=== PATIENT | male | born 1975 | race African-American/Black ===

== ENCOUNTER 2018-04-26 08:13 | Emergency (ER) | payer SELFPAY ==
--- NOTE | 2018-04-26 08:31 | EDPHYS ---
Physician Documentation [facility] Name: Almas Chavez Age: 42 yrs Sex: Male : 1975 Arrival Date: 04/26/2018 Time: 08:15 Bed 8 Private MD: None, None ED Physician Luis Deleon HPI: 04/26 08:26 This 42 yrs old Black Male presents to ER via Unassigned with complaints of High Blood ps1 Pressure. 08:26 patient presenting with asymptomatic hypertension. Has a DOT physical and has not had ps1 his lisinopril refilled since moving from [place]. Has tried to get BP down over the last 3 days by not eating salt. Has not taken his medications in months. Has not been able or tried to get PCP in area. No CP, tightness, pressure, headache, SUSANNAH. . Historical: - Allergies: 08:31 No Known Allergies; ss - Home Meds: 08:31 lisinopril 10 mg Oral tab 1 tab once daily [Active]; Metformin Oral [Active]; Glyburide ss Oral [Active]; - PMHx: 08:31 Hypertension; Diabetes - NIDDM; ss - PSHx: 08:31 None; ss - Immunization history:: Adult Immunizations unknown. - Social history:: Smoking status: Patient uses tobacco products, smokes one pack cigarettes per day. - Ebola Screening: : Patient denies exposure to infectious person Patient denies travel to an Ebola-affected area in the 21 days before illness onset. ROS: 08:26 Constitutional: Negative for fever, chills, and weight loss, Eyes: Negative for injury, ps1 pain, redness, and discharge, Cardiovascular: Negative for chest pain, palpitations, and edema, Respiratory: Negative for shortness of breath, cough, wheezing, and pleuritic chest pain, Abdomen/GI: Negative for abdominal pain, nausea, vomiting, diarrhea, and constipation, MS/Extremity: Negative for injury and deformity, Skin: Negative for injury, rash, and discoloration, Neuro: Negative for headache, weakness, numbness, tingling, and seizure. Exam: 08:26 Constitutional: This is a well developed, well nourished patient who is awake, alert, ps1 and in no acute distress. Head/Face: Normocephalic, atraumatic. Eyes: Pupils equal round and reactive to light, extra-ocular motions intact. Lids and lashes normal. Conjunctiva and sclera are non-icteric and not injected. Chest/axilla: Normal chest wall appearance and motion. Nontender with no deformity. No lesions are appreciated. Cardiovascular: Regular rate and rhythm. No gallops, murmurs, or rubs. Normal PMI, no JVD. No pulse deficits. Respiratory: Lungs have equal breath sounds bilaterally, clear to auscultation and percussion. No rales, rhonchi or wheezes noted. No increased work of breathing, no retractions or nasal flaring. Abdomen/GI: Soft, non-tender, with normal bowel sounds. No distension or tympany. No guarding or rebound. No evidence of tenderness throughout. MS/ Extremity: Pulses equal, no cyanosis. Neurovascular intact. Full, normal range of motion. Neuro: Awake and alert, GCS 15, oriented to person, place, time, and situation. Cranial nerves II-XII grossly intact. Sensory grossly intact. Psych: Awake, alert, with orientation to person, place and time. Behavior, mood, and affect are within normal limits. Vital Signs: 08:31 BP 181 / 103; Pulse 75; Resp 16; Temp 97.9(TE); Pulse Ox 99% on R/A; Height 5 ft. 9 in. ss (175.26 cm); Pain 0/10; MDM: 08:26 Data reviewed: vital signs, nurses notes, and as a result, I will discharge patient, ps1 give a month of lisinopril and local resources for care with medicine group and [facility] clinic. . Counseling: I had a detailed discussion with the patient and/or guardian regarding: the historical points, exam findings, and any diagnostic results supporting the discharge/admit diagnosis, the presence of at least one elevated blood pressure reading (>120/80) during this emergency department visit, the need for outpatient follow up, for definitive care. 08:30 Patient medically screened. ps1 Administered Medications: No medications were administered Disposition: 04/26/18 08:30 Discharged to Home. Impression: Asymptomatic Hypertension. - Condition is Stable. - Discharge Instructions: Hypertension. - Prescriptions for Lisinopril 10 mg Oral Tablet - take 1 tablet by ORAL route once daily; 30 tablet. - Medication Reconciliation Form, Thank You Letter, Antibiotic Education, Prescription Opioid Use form. - Follow up: Private Physician; When: 1 week; Reason: Recheck today's complaints, Continuance of care, Re-evaluation by your physician. - Problem is chronic. - Symptoms are unchanged. Signatures: Erika Castle RN RN ss Luis Deleon MD MD ps1 Corrections: (The following items were deleted from the chart) 08:35 08:30 04/26/2018 08:30 Discharged to Home. Impression: Asymptomatic Hypertension. ss Condition is Stable. Forms are Medication Reconciliation Form, Thank You Letter, Antibiotic Education, Prescription Opioid Use. Follow up: Private Physician; When: 1 week; Reason: Recheck today's complaints, Continuance of care, Re-evaluation by your physician. Problem is chronic. Symptoms are unchanged. ps1
--- NOTE | 2018-04-26 08:31 | ER ---
Nurse's Notes [facility] Name: Almas Chavez Age: 42 yrs Sex: Male : 1975 Arrival Date: 04/26/2018 Time: 08:15 Bed 8 Private MD: None, None Diagnosis: Asymptomatic Hypertension Presentation: 04/26 08:27 Presenting complaint: Patient states: Pt reports he is from out of state and does not ss have a PCP in the area so he is unable to refill his Lisinopril 10 mg. He has been trying to get his BP to come down without his medication in order to start a new job, but has been unsuccessful. Denies SOB, CP and/or dizziness. Transition of care: patient was not received from another setting of care. Onset of symptoms is unknown. Risk Assessment: Do you want to hurt yourself or someone else? Patient reports no desire to harm self or others. Initial Sepsis Screen: Does the patient meet any 2 criteria? No. Patient's initial sepsis screen is negative. Does the patient have a suspected source of infection? No. Patient's initial sepsis screen is negative. Care prior to arrival: None. 08:27 Method Of Arrival: Ambulatory ss 08:27 Acuity: JOANNE 5 ss Historical: - Allergies: 08:31 No Known Allergies; ss - Home Meds: 08:31 lisinopril 10 mg Oral tab 1 tab once daily [Active]; Metformin Oral [Active]; Glyburide ss Oral [Active]; - PMHx: 08:31 Hypertension; Diabetes - NIDDM; ss - PSHx: 08:31 None; ss - Immunization history:: Adult Immunizations unknown. - Social history:: Smoking status: Patient uses tobacco products, smokes one pack cigarettes per day. - Ebola Screening: : Patient denies exposure to infectious person Patient denies travel to an Ebola-affected area in the 21 days before illness onset. Screenin:32 Abuse screen: Denies threats or abuse. Denies injuries from another. Nutritional ss screening: No deficits noted. Tuberculosis screening: Never had TB. Fall Risk None identified. Assessment: 08:32 General: Appears in no apparent distress. comfortable, Behavior is calm, cooperative, ss Denies fever, feeling ill, fatigue, chills. Pain: Denies pain. Neuro: No deficits noted. Level of Consciousness is awake, alert, obeys commands, Oriented to person, place, time, situation. Cardiovascular: Capillary refill < 3 seconds is brisk in bilateral fingers. Respiratory: Airway is patent Respiratory effort is even, unlabored, Respiratory pattern is regular, symmetrical. GI: No signs and/or symptoms were reported involving the gastrointestinal system. Derm: Skin is intact, is healthy with good turgor, Skin is pink, warm \T\ dry. normal. Musculoskeletal: Circulation, motion, and sensation intact. Range of motion: intact in all extremities, Swelling absent. Vital Signs: 08:31 BP 181 / 103; Pulse 75; Resp 16; Temp 97.9(TE); Pulse Ox 99% on R/A; Height 5 ft. 9 in. ss (175.26 cm); Pain 0/10; ED Course: 08:15 Patient arrived in ED. sb2 08:16 None, None is Private Physician. sb2 08:22 Luis Deleon MD is Attending Physician. ps1 08:28 Triage completed. ss 08:31 Arm band placed on left wrist. ss 08:32 Patient has correct armband on for positive identification. Bed in low position. Call ss light in reach. 08:34 No provider procedures requiring assistance completed. Patient did not have IV access ss during this emergency room visit. Administered Medications: No medications were administered Outcome: 08:30 Discharge ordered by . ps1 08:34 Discharged to home ambulatory. ss 08:34 Condition: good 08:34 Discharge instructions given to patient, Instructed on discharge instructions, follow up and referral plans. medication usage, Demonstrated understanding of instructions, follow-up care, medications, Prescriptions given X 1. 08:35 Patient left the ED. ss Signatures: Erika Castle, RN RN Luis Deleon MD MD ps1 Lena Crooks sb2
== END 2018-04-26 08:35 | disposition home or self-care (01) ==
LOC: ER 08:13
DX: I10 Essential (primary) hypertension (principal); E11.9 Type 2 diabetes mellitus without complications; F17.210 Nicotine dependence, cigarettes, uncomplicated; Z79.84 Long term (current) use of oral hypoglycemic drugs; Z79.899 Other long term (current) drug therapy
CPT/HCPCS: 99282

== ENCOUNTER 2019-06-01 18:33 | Emergency (ER) | payer SELFPAY ==
[2019-06-01] MEDS ORDERED: ONDANSETRON 4 MG/2 ML VIAL ONE (19:23)
[2019-06-01] MEDS ORDERED: MORPHINE 4 MG/ML SYR ONE (19:23)
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
[2019-06-01] MEDS ORDERED: FENTANYL CITR 100 MCG/2 ML ONE (20:05)
[2019-06-01 20:08] LABS: Absolute Lymphocytes (CBC) 2.5 K/uL (0.7-4.9); Basophils % 0.6 % (0-1.3); Hematocrit 42.5 % (39.6-49.0); Lymphocytes % 37.7 % (15.3-44.8); MPV 8.4 fL (7.6-11.3)
[2019-06-01 20:30] LABS: ALT/SGPT 24 U/L (12-78); AST/SGOT 13 U/L (15-37); Albumin 3.6 g/dL (3.4-5.0); Alkaline Phosphatase 84 U/L (45-117); BUN Blood Urea Nitrogen 11 mg/dL (7-18); Bicarbonate 28 mmol/L (21-32); Bilirubin Total 0.4 mg/dL (0.2-1.0); Glucose Level 204 mg/dL (74-106); Potassium 3.5 mmol/L (3.5-5.1); Protein, Total 6.8 g/dL (6.4-8.2); Sodium Level 141 mmol/L (136-145)
[2019-06-01] MEDS ORDERED: CYCLOBENZAPRINE 10 MG TAB ONE (20:59)
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
[2019-06-02 00:57] VITALS: O2SAT 100
[2019-06-02 01:00] VITALS: BP 182/101
== END 2019-06-01 21:34 | disposition home or self-care (01) ==
LOC: ER 18:33
DX: S13.4XXA Sprain of ligaments of cervical spine, initial encounter (principal); S33.5XXA Sprain of ligaments of lumbar spine, initial encounter; S23.3XXA Sprain of ligaments of thoracic spine, initial encounter; V43.63XA Car passenger injured in collision with pick-up truck in traffic accident, initial encounter; Y93.89 Activity, other specified; Y92.410 Unspecified street and highway as the place of occurrence of the external cause; E11.9 Type 2 diabetes mellitus without complications; I10 Essential (primary) hypertension; F17.210 Nicotine dependence, cigarettes, uncomplicated
CPT/HCPCS: 36415; 72125; 72128; 80053; 85025; 96374; 96375; 99285; J2405; J3010

== ENCOUNTER 2020-08-20 16:54 | Emergency (ER) | payer SELFPAY ==
[2020-08-20 21:10] LABS: SARS-COV-2 RT PCR POSITIVE (NEGATIVE)
--- NOTE | 2020-08-20 21:13 | EDPHYS ---
Physician Documentation [facility] Name: Almas Chavez Age: 45 yrs Sex: Male : 1975 Arrival Date: 08/20/2020 Time: 16:58 Bed 25 Private MD: ED Physician Oniel Garcia HPI: 08/20 20:03 This 45 yrs old Black Male presents to ER via Ambulatory with complaints of Headache, jr8 Cough. 20:03 Patient stated that his was seen this past Thursday and diagnosed with COVID. Now jr8 presents with cough, headache, body aches. Severity of symptoms: At their worst the symptoms were mild in the emergency department the symptoms are unchanged. The patient has not experienced similar symptoms in the past. The patient has not recently seen a physician. Historical: - Allergies: 17:07 No Known Allergies; ll1 - Home Meds: 20:54 Glyburide Oral once daily [Active]; metformin 1,000 mg oral tab 1 tab 2 times per day sf [Active]; lisinopril 10 mg Oral tab 1 tab once daily [Active]; - PMHx: 17:07 Diabetes - NIDDM; Hypertension; ll1 - PSHx: 17:07 leg surgery; ll1 - Immunization history:: Flu vaccine is not up to date. - Social history:: Smoking status: Patient reports the use of cigarette tobacco products, smokes one pack cigarettes per day. Patient/guardian denies using alcohol, street drugs, IV drugs. ROS: 20:03 Eyes: Negative for injury, pain, redness, and discharge, ENT: Negative for injury, jr8 pain, and discharge, Neck: Negative for injury, pain, and swelling, Cardiovascular: Negative for chest pain, palpitations, and edema, Abdomen/GI: Negative for abdominal pain, nausea, vomiting, diarrhea, and constipation, Back: Negative for injury and pain, MS/Extremity: Negative for injury and deformity, Skin: Negative for injury, rash, and discoloration. 20:03 Constitutional: Positive for body aches, fatigue. 20:03 Respiratory: Positive for cough, Negative for shortness of breath, sputum production, wheezing. 20:03 Neuro: Positive for headache. Exam: 20:03 Eyes: Pupils equal round and reactive to light, extra-ocular motions intact. Lids and jr8 lashes normal. Conjunctiva and sclera are non-icteric and not injected. Cornea within normal limits. Periorbital areas with no swelling, redness, or edema. ENT: Nares patent. No nasal discharge, no septal abnormalities noted. Tympanic membranes are normal and external auditory canals are clear. Oropharynx with no redness, swelling, or masses, exudates, or evidence of obstruction, uvula midline. Mucous membranes moist. Neck: Trachea midline, no thyromegaly or masses palpated, and no cervical lymphadenopathy. Supple, full range of motion without nuchal rigidity, or vertebral point tenderness. No Meningismus. Cardiovascular: Regular rate and rhythm with a normal S1 and S2. No gallops, murmurs, or rubs. Normal PMI, no JVD. No pulse deficits. Respiratory: Lungs have equal breath sounds bilaterally, clear to auscultation and percussion. No rales, rhonchi or wheezes noted. No increased work of breathing, no retractions or nasal flaring. Abdomen/GI: Soft, non-tender, with normal bowel sounds. No distension or tympany. No guarding or rebound. No evidence of tenderness throughout. Back: No spinal tenderness. No costovertebral tenderness. Full range of motion. Skin: Warm, dry with normal turgor. Normal color with no rashes, no lesions, and no evidence of cellulitis. MS/ Extremity: Pulses equal, no cyanosis. Neurovascular intact. Full, normal range of motion. Neuro: Awake and alert, GCS 15, oriented to person, place, time, and situation. Cranial nerves II-XII grossly intact. Motor strength 5/5 in all extremities. Sensory grossly intact. Cerebellar exam normal. Normal gait. Vital Signs: 17:04 BP 182 / 97; Pulse 95; Resp 17; Temp 98.8; Pulse Ox 100% ; Weight 86.18 kg; Height 5 ll1 ft. 9 in. (175.26 cm); Pain 6/10; 20:44 BP 162 / 95; Pulse 70; Resp 16; Temp 99.4; Pulse Ox 95% ; sf 17:04 Body Mass Index 28.06 (86.18 kg, 175.26 cm) ll1 MDM: 19:37 Patient medically screened. [facility] 21:11 Data reviewed: vital signs, nurses notes, lab test result(s), and as a result, I will jr8 discharge patient. Data interpreted: Pulse oximetry: on room air is 95 %. Interpretation: normal. Counseling: I had a detailed discussion with the patient and/or guardian regarding: the historical points, exam findings, and any diagnostic results supporting the discharge/admit diagnosis, lab results, the need for outpatient follow up, a family practitioner, to return to the emergency department if symptoms worsen or persist or if there are any questions or concerns that arise at home. 08/20 19:37 Order name: Flu jr8 08/20 21:11 Order name: COVID-19/FLU A+B; Complete Time: 21:14 EDMS Administered Medications: No medications were administered Disposition: 08/21 06:44 Co-signature as Attending Physician, Oniel Garcia MD I agree with the assessment and gisselle plan of care. Disposition: 08/20/20 21:12 Discharged to Home. Impression: Coronavirus infection, unspecified. - Condition is Stable. - Discharge Instructions: COVID-19. - Medication Reconciliation Form, Thank You Letter, Antibiotic Education, Prescription Opioid Use, Work release form form. - Follow up: Private Physician; When: 5 - 6 days; Reason: Recheck today's complaints, Continuance of care, Re-evaluation by your physician. - Problem is new. - Symptoms are unchanged. - Notes: Vitamin C 2,000 mg 2-3 times a day Vitamin D 4,000 IU daily Zinc 100 mg daily Melatonin 10 mg at bedtime Signatures: Dispatcher [employer] [facility] Oniel Garcia MD MD cha Roszak, Josh, PA PA jr8 Tiffany Wagner RN RN ll1 Wily Jacome RN RN sf Corrections: (The following items were deleted from the chart) 08/20 20:22 19:38 Influenza Screen (A ordered. [facility] 20:22 19:38 CORONAVIRUS+MR.LAB.BRZ ordered. [facility] 21:22 21:12 08/20/2020 21:12 Discharged to Home. Impression: Coronavirus infection, sf unspecified. Condition is Stable. Forms are Medication Reconciliation Form, Thank You Letter, Antibiotic Education, Prescription Opioid Use. Follow up: Private Physician; When: 5 - 6 days; Reason: Recheck today's complaints, Continuance of care, Re-evaluation by your physician. Problem is new. Symptoms are unchanged. jr8
--- NOTE | 2020-08-20 21:13 | ER ---
Nurse's Notes [facility] Name: Almas Chavez Age: 45 yrs Sex: Male : 1975 Arrival Date: 08/20/2020 Time: 16:58 Bed 25 Private MD: Diagnosis: Coronavirus infection, unspecified Presentation: 08/20 17:04 Chief complaint: Patient states: Cough, HENSLEY, fatigue, nausea for 4 days. is covid ll1 positive, wants to be checked. No appetite. Coronavirus screen: Client denies travel out of the [place] in the last 14 days. chills, congestion, cough unrelated to allergies, difficulty breathing, fatigue, headache, muscle pain, nausea, shaking with chills, shortness of breath, sore throat, vomiting. Client presents with at least one sign or symptom that may indicate coronavirus-19. Standard/surgical mask placed on the client. Ebola Screen: Patient denies travel to an Ebola-affected area in the 21 days before illness onset. Initial Sepsis Screen: Does the patient meet any 2 criteria? HR > 90 bpm. No. Patient's initial sepsis screen is negative. Does the patient have a suspected source of infection? Yes: Productive cough/pneumonia. Risk Assessment: Do you want to hurt yourself or someone else? Patient reports no desire to harm self or others. Onset of symptoms was August 16, 2020. 17:04 Method Of Arrival: Ambulatory ll1 17:04 Acuity: JOANNE 3 ll1 Triage Assessment: 20:40 Headache History: Denies prior headaches. sf Historical: - Allergies: 17:07 No Known Allergies; ll1 - Home Meds: 20:54 Glyburide Oral once daily [Active]; metformin 1,000 mg oral tab 1 tab 2 times per day sf [Active]; lisinopril 10 mg Oral tab 1 tab once daily [Active]; - PMHx: 17:07 Diabetes - NIDDM; Hypertension; ll1 - PSHx: 17:07 leg surgery; ll1 - Immunization history:: Flu vaccine is not up to date. - Social history:: Smoking status: Patient reports the use of cigarette tobacco products, smokes one pack cigarettes per day. Patient/guardian denies using alcohol, street drugs, IV drugs. Screenin:40 Abuse screen: Denies threats or abuse. Denies injuries from another. Nutritional sf screening: No deficits noted. Tuberculosis screening: No symptoms or risk factors identified. Never had TB. Possible symptoms: None Risk factors: None. Fall Risk None identified. No fall in past 12 months (0 pts). No secondary diagnosis (0 pts). No IV (0 pts). Ambulatory Aid- None/Bed Rest/Nurse Assist (0 pts). Gait- Normal/Bed Rest/Wheelchair (0 pts) Mental Status- Oriented to own ability (0 pts). Total Christian Fall Scale indicates No Risk (0-24 pts). Assessment: 20:40 General: Appears in no apparent distress. comfortable, Behavior is calm, cooperative, sf appropriate for age. Pain: Denies pain. Neuro: No deficits noted. Level of Consciousness is awake, alert, obeys commands, Oriented to person, place, time, situation, Appropriate for age. Cardiovascular: No deficits noted. Patient's skin is warm and dry. Respiratory: Reports shortness of breath cough that is non-productive, Airway is patent Respiratory effort is even, unlabored, Respiratory pattern is regular, symmetrical, the patient has mild shortness of breath Denies labored breathing. GI: No signs and/or symptoms were reported involving the gastrointestinal system. : No signs and/or symptoms were reported regarding the genitourinary system. Vital Signs: 17:04 BP 182 / 97; Pulse 95; Resp 17; Temp 98.8; Pulse Ox 100% ; Weight 86.18 kg; Height 5 ll1 ft. 9 in. (175.26 cm); Pain 6/10; 20:44 BP 162 / 95; Pulse 70; Resp 16; Temp 99.4; Pulse Ox 95% ; sf 17:04 Body Mass Index 28.06 (86.18 kg, 175.26 cm) ll1 ED Course: 16:58 Patient arrived in ED. mr 17:06 Triage completed. ll1 17:07 Arm band placed on. ll1 19:36 Kris Collazo PA is PHCP. jr8 19:36 Oniel Garcia MD is Attending Physician. jr8 20:30 Wily Jacome, PRETTY is Primary Nurse. sf 20:30 Flu Sent. sf 20:40 Patient has correct armband on for positive identification. Bed in low position. Call sf light in reach. Side rails up X 1. Pulse ox on. NIBP on. Door closed. Noise minimized. Visitors limited. Lights dimmed. Warm blanket given. Verbal reassurance given. 21:22 No provider procedures requiring assistance completed. Patient did not have IV access sf during this emergency room visit. Administered Medications: No medications were administered Outcome: 21:12 Discharge ordered by MD. leal 21:22 Discharged to home ambulatory. sf 21:22 Condition: stable 21:22 Discharge instructions given to patient, Instructed on discharge instructions, follow up and referral plans. Demonstrated understanding of instructions, follow-up care. 21:22 Patient left the ED. sf Signatures: Carla Perez mr Kris Collazo PA PA jr8 Tiffany Wagner, RN RN [facility] Wily Jacome RN RN sf
[2020-08-20 21:40] VITALS: BP 162/95; TEMP 99.4; O2SAT 95
== END 2020-08-20 21:22 | disposition home or self-care (01) ==
LOC: ER 16:54
DX: U07.1 COVID-19 (principal); I10 Essential (primary) hypertension; E11.9 Type 2 diabetes mellitus without complications; F17.210 Nicotine dependence, cigarettes, uncomplicated
CPT/HCPCS: 0240U; 99283

== ENCOUNTER 2022-12-13 18:18 | Emergency (ER) | payer SELFPAY ==
--- OUTSIDE RECORDS SUMMARY | 2022-12-13 18:20 | XMS REPORT | Continuity of Care Document ---
:1975 Author Organization [facility] t Address [address] [place] [address] [place] [id number] Care Team Providers Name Role Phone Unavailable Unavailable Unavailable Problems This patient has no known problems. Allergies, Adverse Reactions, Alerts This patient has no known allergies or adverse reactions. Medications This patient has no known medications. Procedures This patient has no known procedures. Encounters Start End Encounter Admission Attending Care Care Encounter Source Date/Time Date/Time Type Type Clinicians Facility Department ID 2022-10-08 2022-10-08 Outpatient [facility] JIMMIE [id number] Miguel 08:06:38 08:06:38 [id number] [address] [place] Results This patient has no known results.
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
--- NOTE | 2022-12-13 19:30 | EDPHYS ---
Physician Documentation [facility] Name: Almas Chavez Age: 47 yrs Sex: Male : 1975 Arrival Date: 12/13/2022 Time: 18:18 Bed 20 Private MD: ED Physician Sunny Aguilera HPI: 12/13 21:47 This 47 yrs old Black Male presents to ER via Ambulatory with complaints of Insect Bite.snw 21:47 Onset: The symptoms/episode began/occurred acutely. The patient has not experienced snw similar symptoms in the past. It is unknown whether or not the patient has recently seen a physician. did not take BP meds today. Historical: - Allergies: 18:25 No Known Allergies; ss - PMHx: 18:25 Diabetes - NIDDM; Hypertension; ss - Social history:: Smoking status: Patient reports the use of cigarette tobacco products, smokes one pack cigarettes per day. ROS: 21:46 Constitutional: Negative for fever, chills, and weight loss, Eyes: Negative for injury, snw pain, redness, and discharge, ENT: Negative for injury, pain, and discharge, Neck: Negative for injury, pain, and swelling, Cardiovascular: Negative for chest pain, palpitations, and edema, Respiratory: Negative for shortness of breath, cough, wheezing, and pleuritic chest pain, Abdomen/GI: Negative for abdominal pain, nausea, vomiting, diarrhea, and constipation, Back: Negative for injury and pain, : Negative for injury, bleeding, discharge, and swelling, MS/Extremity: Negative for injury and deformity, Neuro: Negative for headache, weakness, numbness, tingling, and seizure, Psych: Negative for depression, anxiety, suicide ideation, homicidal ideation, and hallucinations. 21:46 Skin: Positive for swelling, of the base of the skull. Exam: 21:44 Constitutional: This is a well developed, well nourished patient who is awake, alert, snw and in no acute distress. Eyes: Pupils equal round and reactive to light, extra-ocular motions intact. Lids and lashes normal. Conjunctiva and sclera are non-icteric and not injected. Cornea within normal limits. Periorbital areas with no swelling, redness, or edema. ENT: Nares patent. No nasal discharge, no septal abnormalities noted. Tympanic membranes are normal and external auditory canals are clear. Oropharynx with no redness, swelling, or masses, exudates, or evidence of obstruction, uvula midline. Mucous membranes moist. Neck: Trachea midline, no thyromegaly or masses palpated, and no cervical lymphadenopathy. Supple, full range of motion without nuchal rigidity, or vertebral point tenderness. No Meningismus. Chest/axilla: Normal chest wall appearance and motion. Nontender with no deformity. No lesions are appreciated. Cardiovascular: Regular rate and rhythm with a normal S1 and S2. No gallops, murmurs, or rubs. Normal PMI, no JVD. No pulse deficits. Respiratory: Lungs have equal breath sounds bilaterally, clear to auscultation and percussion. No rales, rhonchi or wheezes noted. No increased work of breathing, no retractions or nasal flaring. Abdomen/GI: Soft, non-tender, with normal bowel sounds. No distension or tympany. No guarding or rebound. No evidence of tenderness throughout. Back: No spinal tenderness. No costovertebral tenderness. Full range of motion. MS/ Extremity: Pulses equal, no cyanosis. Neurovascular intact. Full, normal range of motion. Neuro: Awake and alert, GCS 15, oriented to person, place, time, and situation. Cranial nerves II-XII grossly intact. Motor strength 5/5 in all extremities. Sensory grossly intact. Cerebellar exam normal. Normal gait. Psych: Awake, alert, with orientation to person, place and time. Behavior, mood, and affect are within normal limits. 21:44 Head/face: Noted is swelling, that is moderate, of the scalp, tenderness. 21:44 Skin: Appearance: normal except for affected area, + indurated, mobile area to posterior scalp/neck with obvious papules with ingrown hairs. Vital Signs: 18:24 BP 199 / 111; Pulse 82; Resp 16; Temp 98.8(TE); Pulse Ox 100% on R/A; Weight 91.63 kg; ss Height 5 ft. 9 in. ; Pain 7/10; 19:33 BP 198 / 99; Pulse 65; Resp 16; Pulse Ox 100% ; vc1 18:24 Body Mass Index 29.83 (91.63 kg, 175.26 cm) 18:24 Pain Scale: Adult ss 18:24 Pt reports he has not taken his BP medications today ss MDM: 19:07 Patient medically screened. snw 20:26 Differential diagnosis: abscess, cyst, . Data reviewed: vital signs, nurses notes. I snw considered the following discharge prescriptions or medication management in the emergency department Medications were administered in the Emergency Department. See MAR. Counseling: I had a detailed discussion with the patient and/or guardian regarding: the historical points, exam findings, and any diagnostic results supporting the discharge/admit diagnosis, the need for outpatient follow up, for definitive care, a general surgeon, to return to the emergency department if symptoms worsen or persist or if there are any questions or concerns that arise at home. Special discussion: I have referred the patient to see his PCP for further evaluation of high blood pressure. Based on the history and exam findings, there is no indication for further emergent testing or inpatient evaluation. I discussed with the patient/guardian the need to see the general surgeon for further evaluation of the symptoms. I discussed with the patient/guardian the need to see the primary care provider for further evaluation of the symptoms. 21:36 Response to treatment: There is no appreciated change of the patient's symptoms at this snw time. Administered Medications: 19:32 Drug: Doxycycline PO 100 mg Route: PO; vc1 19:33 Follow up: Response: Medication administered at discharge. vc1 19:32 Drug: Lisinopril PO 10 mg Route: PO; vc1 19:32 Follow up: Response: Medication administered at discharge. vc1 Disposition Summary: 12/13/22 19:29 Discharge Ordered Location: Home snw Condition: Stable snw Diagnosis - Cutaneous abscess, unspecified snw Followup: snw - With: Emergency Department - When: As needed - Reason: Worsening of condition Followup: snw - With: Perez Nagy MD - When: 2 - 3 days - Reason: Recheck today's complaints, Continuance of care Discharge Instructions: - Discharge Summary Sheet snw - Skin Abscess snw - Incision and Drainage snw - Heat Therapy snw Forms: - Medication Reconciliation Form snw - Thank You Letter snw - Antibiotic Education snw - Prescription Opioid Use snw - [email or web address] snw Prescriptions: - Tramadol 50 mg Oral Tablet - take 1 tablet by ORAL route every 8 hours as needed; 12 tablet; Refills: 0, snw Product Selection Permitted - Bactrim DS 800-160 mg Oral Tablet - take 1 tablet by ORAL route every 12 hours for 10 days; 20 tablet; Refills: 0, snw Product Selection Permitted Addendum: 12/17/2022 08:58 Co-signature as Attending Physician, Sunny LAGUNA I reviewed the patient's care r n provided by the Advanced Practice Provider and agree with the diagnosis and treatment plan. Signatures: Tamara Mccray, MANAGER OUTPATIENT-C MANAGER OUTPATIENT-Csnw Sunny Aguilera MD MD rn Blanchard, Shelby RN RN ss Norma Collins RN RN vc1
[2022-12-13] MEDS ORDERED: lisinopriL 10 MG TAB ONE (19:39)
[2022-12-13] MEDS ORDERED: DOXYCYCLINE 100 MG CAP PO ONE (19:39)
[2022-12-13 19:46] VITALS: TEMP 98.8; O2SAT 100
[2022-12-13 19:48] VITALS: BP 198/99
== END 2022-12-13 19:37 | disposition home or self-care (01) ==
LOC: ER 18:18
DX: L02.811 Cutaneous abscess of head [any part, except face] (principal)
CPT/HCPCS: 99283

== ENCOUNTER 2023-01-14 10:17 | Emergency (ER) | payer OTHER, SELFPAY ==
--- OUTSIDE RECORDS SUMMARY | 2023-01-14 10:20 | XMS REPORT | Continuity of Care Document ---
:1975 Author Organization [facility] t Address [address] [place] [address] [place] [id number] Care Team Providers Name Role Phone Unavailable Unavailable Unavailable Problems This patient has no known problems. Allergies, Adverse Reactions, Alerts This patient has no known allergies or adverse reactions. Medications This patient has no known medications. Procedures This patient has no known procedures. Encounters Start End Encounter Admission Attending Care Care Encounter Source Date/Time Date/Time Type Type Clinicians Facility Department ID 2023-01-02 2023-01-02 Outpatient [facility] [id number] Miguel 09:43:07 09:43:07 [id number] F René 2022-10-08 2022-10-08 Outpatient [facility] [id number] Miguel 08:06:38 08:06:38 [id number] F René Results This patient has no known results.
[2023-01-14] MEDS ORDERED: NA CHLORIDE 0.9% 1,000 ML ONE (10:51)
[2023-01-14] MEDS ORDERED: ONDANSETRON 4 MG/2 ML VIAL ONE (10:51)
[2023-01-14] MEDS ORDERED: KETOROLAC 30 MG/ML INJ ONE (10:51)
[2023-01-14 11:18] LABS: Absolute Lymphocytes (CBC) 1.7 K/uL (0.7-4.9); Hematocrit 46.3 % (39.6-49.0); Lymphocytes % 29.7 % (15.3-44.8); MCV 85.6 fL (80-100); MPV 8.5 fL (7.6-11.3); RBC Red Blood Cell Count 5.42 M/uL (4.33-5.43)
[2023-01-14 11:34] LABS: ALT/SGPT 26 U/L (16-61); AST/SGOT 17 U/L (15-37); Albumin 3.1 g/dL (3.4-5.0); Alkaline Phosphatase 98 U/L (45-117); BUN Blood Urea Nitrogen 13 mg/dL (7-18); Bicarbonate 27 mEq/L (21-32); Bilirubin Total 0.3 mg/dL (0.2-1.0); Glomerular Filtration Rate 74 ml/min (=/>90); Lipase 38 U/L (13-75); Potassium 3.9 mEq/L (3.5-5.1); Protein, Total 6.6 g/dL (6.4-8.2); Sodium Level 135 mEq/L (136-145)
[2023-01-14 11:35] LABS: Bilirubin Direct < 0.1 mg/dL (0-0.2); Bilirubin Indirect, Calculated ND mg/dL (0.2-0.8); Glucose Level 412 mg/dL (74-106)
[2023-01-14] MEDS ORDERED: INSULIN -REGULAR HUMAN 50 UNIT/0.5 ML ML ONE (11:52)
[2023-01-14 12:12] LABS: Specific Gravity > 1.030 (1.005-1.030); Urine Bacteria None Seen /HPF (<20); Urine Bilirubin NEGATIVE (Negative); Urine Blood Trace (Negative); Urine Clarity Clear (Clear); Urine Color Colorless (Yellow); Urine Glucose 4+ (Over) (Negative); Urine Mucus Slight /HPF (None Seen); Urine Protein 1+ (Negative); Urine RBC <5 /HPF (None Seen); Urine Urobilinogen Normal (Normal); Urine pH 6.5 (5.0-7.0)
--- NOTE | 2023-01-14 12:13 | RAD REPORT ---
EXAM DESCRIPTION: Monica Single View01/14/2023 10:39 am CLINICAL HISTORY: Chest pain COMPARISON: none FINDINGS: The lungs appear clear of acute infiltrate. The heart is normal size IMPRESSION: No acute abnormalities displayed
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
[2023-01-14] MEDS ORDERED: HYDROCODONE/APAP 10/325 TAB ONE (13:03)
[2023-01-14 13:52] VITALS: TEMP 98
[2023-01-14 13:54] VITALS: BP 177/99; O2SAT 100
== END 2023-01-14 13:09 | disposition home or self-care (01) ==
LOC: ER 10:17
DX: S29.012A Strain of muscle and tendon of back wall of thorax, initial encounter (principal); S29.011A Strain of muscle and tendon of front wall of thorax, initial encounter; S30.1XXA Contusion of abdominal wall, initial encounter; E11.65 Type 2 diabetes mellitus with hyperglycemia; V69.49XA Driver of heavy transport vehicle injured in collision with other motor vehicles in traffic accident, initial encounter; I10 Essential (primary) hypertension
CPT/HCPCS: 85025; 81001; 80048; 36415; 86900; 86850; 86901; 80076; 83690; 70450; 72125; 71260; 74177; 71045; Q9967; J1815; J2405; J7030

== ENCOUNTER 2023-08-29 21:05 | Inpatient (IN) | payer OTHER, SELFPAY ==
--- OUTSIDE RECORDS SUMMARY | 2023-08-29 21:07 | XMS REPORT | Continuity of Care Document ---
Author Name Unknown Address [address] [facility] [address] [place], [place] [id number] [place] [address] thconnect Address [address] [facility] [address] [place] [address] Care Team Providers Care Cashier Tube Room Name Role Phone CRYS HARO Attending Clinician Unavailable Payers Payer Name Policy Type Policy Number Effective Date Expirati on Date Source LIANA SMITH [facility]: O INFORMATION ASSURANCE SPECIALIST 94 ON STAND 9 [id number] 2023 00:00:00 Problems Condition Name Condition Details Condition Category Status Onset Date Resolution Date Last Treatment Date Treating Clinician Comments Source Hypertensi on Hypertensi on Disease Active 2022-06 00:00: 00 Martha Sheridana mara Diabetes (multi HCC) Diabetes (multi HCC) Disease Active 2022-06 00:00: 00 Martha Anderson Externa l Tobacco use Tobacco use Disease Active 2022-06 00:00: 00 Martha Anderson Externa l Current mild episode of major depressive disorder without prior episode Current mild episode of major depressive disorder without prior episode Disease Active 2022-06 00:00: 00 Martha Anderson Externa l Social History Social Habit Start Date Stop Date Quantity Comments Source Sexual orientation Dieter Hart - External History of tobacco use Cigarette Smoker Martha fuentes - External Education 2023-04-03 00:00:00 2023-04-03 00:00:00 13 Martha Hart - External Alcohol Comment 2023-04-03 00:00:00 2023-04-03 00:00:00 occasional Martha Hart - External Cigarettes smoked current (pack per day) - Reported 2023-04-03 00:00:00 2023-04-03 00:00:00 Martha Hart - External Cigarette pack-years 2023-04-03 00:00:00 2023-04-03 00:00:00 Martha Hart - External Tobacco use and exposure 2023-04-03 00:00:00 2023-04-03 00:00:00 Smokeless tobacco non-user Martha Hart - External Alcohol intake 2023-04-03 00:00:00 2023-04-03 00:00:00 Current drinker of alcohol (finding) Martha Hart - External History of Social function 2023-04-03 00:00:00 2023-04-03 00:00:00 Martha Hart - External Sex Ass[birth year] At 1975 00:00:00 1975 00:00:00 Martha Hart - External Smoking Status Start Date Stop Date Source Smokes tobacco daily 2023-04-03 00:00:00 aMrtha Hart - External Medications Ordered Medication Name Filled Medication Name Start Date Stop Date Current Medication? Ordering Clinician Indication Dosage Frequency Signature (SIG) Comments Components Source Metformin HCl ER 500 MG oral TABLET SR 24 HR 2022-06 15:02: 04-03 00:00 :00 No 500mg Take 1 tablet (500 mg total) by mouth daily (with breakfast) . Martha terry Lisinopril 20 MG oral Tablet 2022-06 15:02: 32 04-03 00:00 :00 No 20mg Take 1 tablet (20 mg total) by mouth daily. Martha terry Lisinopril 20 MG oral Tablet 2022-06 00:00: 00 Yes [id number] 20mg Take 1 tablet (20 mg total) by mouth daily. Martha terry Metformin HCl ER 500 MG oral TABLET SR 24 HR 2022-06 00:00: 00 Yes [id number] 500mg Take 1 tablet (500 mg total) by mouth daily (with breakfast) . Martha Seybold - Externa l Sertraline HCl 25 MG oral Tablet 2022-06 00:00: 00 Yes [id number] 25mg Take 1 tablet (25 mg total) by mouth daily. Martha terry Vital Signs Vital Name Observation Time Observation Value Comments Sean charles Systolic blood pressure 2023-04-03 19:48:00 170 mm[Hg] Martha Noeo ld - External Diastolic blood pressure 2023-04-03 19:48:00 88 mm[Hg] Martha Sedanteo ld - External Heart rate 2023-04-03 19:48:00 88 /min Lionse jorge Hart - External Body temperature 2023-04-03 19:48:00 37.06 Kasey Martha Hart - External Respiratory rate 2023-04-03 19:48:00 18 /min Martha Hart - External Body height 2023-04-03 19:48:00 177.8 cm Dacia gonzales Seybalfredo - External Body weight 2023-04-03 19:48:00 79.289 kg Dacia christian Romoybalfredo - External BMI 2023-04-03 19:48:00 25.08 kg/m2 Dacia christian Hart - External Oxygen saturation in Arterial blood by Pulse oximetry 2023-04-03 19:48:00 97 /min Martha hsieh - External Encounters Start Date/Time End Date/Time Encounter Type Admission Type Attending [facility] Care Department Encounter ID Source 2023-04-29 00:00:00 2023-04-29 00:00:00 Outpatient CRYS HARO [id number] Martha santos 2023-04-13 00:00:00 2023-04-13 00:00:00 Outpatient CRYS HARO [id number] Martha santos 2023-04-03 14:30:00 2023-04-03 14:30:00 Outpatient CRYS HARO [id number] Martha santos 2023-01-02 09:43:07 2023-01-02 09:43:07 Outpatient SFA SFA [id number] Miguel Merritt 2022-10-08 08:06:38 2022-10-08 08:06:38 Outpatient SFA SFA [id number] Miguel Merritt
[2023-08-29 21:38] LABS: Absolute Basophils 0.1 K/uL (0-0.5); Absolute Eosinophils 0.1 K/uL (0-0.5); Absolute Lymphocytes (CBC) 2.8 K/uL (0.7-4.9); Absolute Monocytes 0.4 K/uL (0.1-1.3); Absolute Neutrophil 4.6 K/uL (1.8-8.0); Basophils % 0.7 % (0-1.3); Eosinophils % 1.2 % (0-4.4); Hematocrit 43.8 % (39.6-49.0); Lymphocytes % 35.1 % (15.3-44.8); MCH 28.5 pg (27.0-35.0); MCHC 34.2 g/dL (32.0-36.0); MCV 83.3 fL (80-100); MPV 7.8 fL (7.6-11.3); Monocytes % 5.4 % (3.3-12.3); Neutrophils % 57.6 % (41.7-73.7); Nucleated RBC Absolute Count 0.1 (0-0); Nucleated Red Blood Cells % 1.2 % (0-0); Platelets 204 thou/uL (152-406); RBC Red Blood Cell Count 5.26 M/uL (4.33-5.43); Red Cell Distribution Width 12.7 % (12.1-15.2)
[2023-08-29] MEDS ORDERED: INSULIN REGULAR (HUMAN) 100 UNIT/ML ONE (21:38)
[2023-08-29] MEDS ORDERED: METOPROLOL TAR 25 MG TAB ONE (21:39)
[2023-08-29] MEDS ORDERED: FAMOTIDINE 20 MG/2 ML VIAL IV ONE (21:40)
[2023-08-29] MEDS ORDERED: NA CHLORIDE 0.9% 1,000 ML ONE ×2 (21:40→23:10)
[2023-08-29] MEDS ORDERED: MORPHINE 4 MG/ML SYR ONE (21:40)
[2023-08-29] MEDS ORDERED: ONDANSETRON 4 MG/2 ML VIAL ONE (21:40)
[2023-08-29 22:05] LABS: Albumin 3.1 g/dL (3.4-5.0); Albumin/Globulin Ratio 0.8 (1.1-1.8); Anion Gap 11.8 mEq/L (5.0-15.0); Bilirubin Direct 0.2 mg/dL (0-0.2); Bilirubin Indirect, Calculated 0.5 mg/dL (0.2-0.8); Bilirubin Total 0.7 mg/dL (0.2-1.0); Globulin 3.8 g/dL (2.3-3.5); Potassium 3.8 mEq/L (3.5-5.1); Protein, Total 6.9 g/dL (6.4-8.2); Thyroid Stimulating Hormone 0.836 uIU/mL (0.358-3.740); Troponin High Sensitivity 50.9 pg/mL (<58.9)
--- NOTE | 2023-08-29 22:07 | RAD REPORT ---
EXAM DESCRIPTION: RAD - Chest Single View - 08/29/2023 10:00 pm CLINICAL HISTORY: CHEST PAIN Chest pain. COMPARISON: Chest Single View dated 01/14/2023 FINDINGS: Portable technique limits examination quality. The lungs are grossly clear. The heart is normal in size. No displaced fractures. IMPRESSION: No acute intrathoracic process suspected.
[2023-08-29] MEDS ORDERED: METOCLOPRAMIDE 10 MG/2mL INJ ONE (23:10)
[2023-08-30] MEDS ORDERED: HYDRALAZINE HCL 20 MG/ML VIAL ONE (00:57)
[2023-08-30] MEDS ORDERED: PROMETHAZINE INJ 25 MG/ML AMP ONE (01:17)
[2023-08-30] MEDS ORDERED: METOPROLOL TARTRATE 5 MG/5 ML INJ IV ONE ×2 (01:53→09:03)
[2023-08-30 02:05] LABS: Specific Gravity > 1.030 (1.005-1.030); Sqamous Epithelial None Seen /HPF (None Seen); Urine Bacteria None Seen /HPF (<20); Urine Bilirubin NEGATIVE (Negative); Urine Blood Negative (Negative); Urine Clarity Clear (Clear); Urine Color Light-Yellow (Yellow); Urine Culture Reflex Order NOT NEEDED; Urine Glucose 4+ (Over) (Negative); Urine Ketones 1+ (Negative); Urine Micro Reflex YN NO BILL MICROSCOPIC; Urine Mucus Slight /HPF (None Seen); Urine Nitrite NEGATIVE (Negative); Urine Protein 3+ (Negative); Urine Urobilinogen Normal (Normal); Urine WBC <5 /HPF (<5); Urine pH 6.5 (5.0-7.0)
[2023-08-30 02:13] LABS: Barbiturates NEGATIVE (NEGATIVE); Benzodiazepines NEGATIVE (NEGATIVE); Cocaine NEGATIVE (NEGATIVE); METHAMPHETAM NEGATIVE (NEGATIVE); Methadone NEGATIVE (NEGATIVE); Opiates NEGATIVE (NEGATIVE); Phencyclidine NEGATIVE (NEGATIVE); THC Cannibis NEGATIVE (NEGATIVE)
--- NOTE | 2023-08-30 03:52 | EDPHYS ---
Physician Documentation [facility] Name: Almas Chavez Age: 48 yrs Sex: Male : 1975 Arrival Date: 08/29/2023 Time: 21:05 Bed 8 Private MD: ED Physician Lex Zaldivar HPI: 08/28 21:24 This 48 yrs old Black Male presents to ER via EMS with complaints of chest pain, sp4 feeling unwell . 21:24 48-year-old black male presents with EMS for complaint of generalized weakness for the sp4 past 3 weeks associated with nausea vomiting and chest pain starting 2 days ago. Sugar was elevated 375 by EMS. EMS reported excessive hypertension with blood pressure as high as 250 systolic. EMS administered sublingual nitroglycerin spray and also metoprolol IV 5 mg. Arrival blood pressure 173/115.. Patient reports that he has history of type 2 diabetes which is basically uncontrolled however at this time he is taking glyburide and Jardiance. . Historical: - Allergies: 21:20 No Known Allergies; jb4 - PMHx: 21:20 Diabetes - NIDDM; Hypertension; jb4 - Immunization history:: Adult Immunizations. - Family history:: not pertinent. - Social history:: Smoking status: Patient denies any tobacco usage or history of. ROS: 21:24 Constitutional: Negative for fever, chills, and weight loss, positive generalized sp4 weakness positive nausea vomiting, positive chest pain, positive feeling unwell 21:24 All other systems are negative, Exam: 21:24 Constitutional: This is a well developed, well nourished patient who is awake, alert, sp4 Ill-appearing but nontoxic Head/Face: Normocephalic, atraumatic. Eyes: Pupils equal round and reactive to light, extra-ocular motions intact. Lids and lashes normal. Conjunctiva and sclera are not injected. Cornea within normal limits. Periorbital areas with no swelling, redness, or edema. ENT: Nares patent. No nasal discharge, no septal abnormalities noted. Tympanic membranes are normal and external auditory canals are clear. Oropharynx with no redness, swelling, or masses, exudates, or evidence of obstruction, uvula midline. Mucous membranes moist. Neck: Trachea midline, no thyromegaly or masses palpated, and no cervical lymphadenopathy. Supple, full range of motion without nuchal rigidity, or vertebral point tenderness. Chest/axilla: Normal chest wall appearance and motion. Nontender with no deformity. No lesions are appreciated. Cardiovascular: Regular rate and rhythm with a normal S1 and S2. No gallops, murmurs, or rubs. Normal PMI, no JVD. No pulse deficits. Respiratory: Lungs have equal breath sounds bilaterally, clear to auscultation and percussion. No rales, rhonchi or wheezes noted. No increased work of breathing, no retractions or nasal flaring. Abdomen/GI: Soft, with normal bowel sounds. No distension or tympany. No guarding or rebound. No evidence of tenderness throughout. Back: No spinal tenderness. No costovertebral tenderness. Male : Normal genitalia with no discharge or lesions. Skin: Warm, dry with normal turgor. Normal color with no rashes, no lesions, and no evidence of cellulitis. MS/ Extremity: Pulses equal, no cyanosis. Neurovascular intact. Full, normal range of motion. Neuro: Awake and alert, GCS 15, oriented to person, place, time, and situation. Cranial nerves II-XII grossly intact. Motor strength 5/5 in all extremities. Sensory grossly intact. Psych: Awake, alert, with orientation to person, place and time. Behavior, mood, and affect are within normal limits 21:24 ECG was reviewed by the Attending Physician. EKG 2018 reveals normal sinus rhythm at rate of 72, no ST elevation or depression. Inverted T waves V5 V6 also II, III, and aVF Vital Signs: 21:15 BP 173 / 115; Pulse 72; Resp 16; Pulse Ox 98% on R/A; Pain 5/10; jb4 23:15 BP 178 / 107; Pulse 78; Resp 19; Temp 98.7(O); Pulse Ox 98% on R/A; jb4 0317 00:40 BP 170 / 112; Pulse 71; Resp 16; Pulse Ox 100% on R/A; jb4 01:40 BP 198 / 95; Pulse 77; Resp 16; Pulse Ox 100% on R/A; jb4 02:30 BP 155 / 91; Pulse 76; Resp 16; Pulse Ox 100% on R/A; jb4 04:00 BP 165 / 95; Pulse 76; Resp 18; Pulse Ox 97% on R/A; jb4 08/28 21:15 Pain Scale: Adult jb4 MDM: 08/28 21:16 Patient medically screened. sp4 08/29 00:47 ED course: PROCEDURE: Chest Abdomen Pelvis W Cont CLINICAL HISTORY: 48 years Male sp4 abdominal pain, vomiting TECHNIQUE: Contiguous axial images obtained through the chest, abdomen, and pelvis following IV contrast. Coronal and sagittal reformatted images provided. This CT exam was performed according to our departmental dose-optimization program, which includes one or more of the following dose reduction techniques: automated exposure control, adjustment of the mA and/or kV according to patient size, and/or use of iterative reconstruction technique. COMPARISON: No prior exams provided for comparison. FINDINGS: The lungs are clear without focal consolidation, effusion, or pneumothorax. The central airways are patent. The heart is normal in size without pericardial effusion. The aorta and central pulmonary vasculature are normal in caliber. No lymphadenopathy in the chest. The liver, biliary tree, gallbladder, pancreas, spleen, adrenal glands, kidneys, urinary bladder, and osseous structures are normal. Mild colonic constipation without bowel inflammation, obstruction, free intraperitoneal air, or ascites. The appendix is normal. IMPRESSION: No acute findings in the chest. Mild colonic constipation. No other acute findings in the abdomen or pelvis. . ED course: THIS REPORT CONTAINS FINDINGS THAT MAYBE CRITICAL TO PATIENT CARE: The findings were verbally discussed via telephone conference with Dr. eLx Zaldivar MD by Dr. Angela Peralta on 08/30/2023 12:40 AM CDT . The results were acknowledged and understood. Electronically signed by: Angela Peralta MD 08/30/2023 12:40 AM CDT End of Addendum PROCEDURE: Head Brain Wo Cont CLINICAL HISTORY: 48 years Male HEADACHE, HTN TECHNIQUE: Contiguous axial CT images obtained through the brain without IV contrast. Coronal and sagittal reformats also provided. This CT exam was performed according to our departmental dose-optimization program, which includes one or more of the following dose reduction techniques: automated exposure control, adjustment of the mA and/or kV according to patient size, and/or use of iterative reconstruction technique. COMPARISON: 08/06/2023 FINDINGS: Abnormal low attenuation at the inferior and medial aspects of the right cerebellar hemisphere are consistent with a subacute infarct, new since the prior exam. This does not appear hyperacute. There is no intracranial hemorrhage, extra-axial collection, or visualized acute transcortical infarction. The ventricles are normal in size and contour without mass-effect or midline shift. Osseous structures are normal. The paranasal sinuses and mastoid air cells are clear. IMPRESSION: Subacute infarct in the right cerebellar hemisphere is new since the prior exam. No visualized hemorrhage or mass effect. Electronically signed by: Angela Peralta MD 08/30/2023 12:36 AM C. 00:50 ED course: EXAM DESCRIPTION: RAD - Chest Single View - 08/29/2023 10:00 pm CLINICAL sp4 HISTORY: CHEST PAIN Chest pain. COMPARISON: Chest Single View dated 01/14/2023 FINDINGS: Portable technique limits examination quality. The lungs are grossly clear. The heart is normal in size. No displaced fractures. IMPRESSION: No acute intrathoracic process suspected. . 03:46 ED course: IMPRESSION: CT Angio Suboptimal visualization/perhaps decrease caliber of sp4 the right PICA. No evidence for significant stenosis and/or occlusion of the intracranial vasculature. No evidence for significant stenosis and/or occlusion of the cervical carotid arteries. . ED course: CT angio - full report - EXAM DESCRIPTION: Head angio (accession [id number]), Neck Angio (accession [id number]) 08/30/2023 2:18 AM CDT CLINICAL HISTORY: 48 years, Male, stroke subacute COMPARISON: None PROCEDURE: Multiple transaxial tomograms from the aortic arch through the brain were performed after administration of large bolus of IV contrast for complete opacification of the carotid arteries and intracranial vessels. Subsequent 2-D and 3-D multiplanar reformats, volume rendering technique and maximum intensity projection images were generated and reviewed An individualized dose optimization technique, Automated Exposure Control, was utilized for the performed procedure. CAROTID STENOSIS REFERENCE USING NASCET CRITERIA: % ICA stenosis = (1 - narrowest ICA diameter/diameter of distal cervical ICA) x 100. Mild - <50% stenosis. Moderate - 50-69% stenosis. Severe - 70-94% stenosis. Near occlusion - 95-99% stenosis. Occluded - 100% stenosis. FINDINGS: Ascending aorta: There is a normal branching pattern of the great vessels off the arch. There are codominant vertebral arteries which demonstrate normal opacification, slight prominence of the liver to artery. No great vessel origin stenosis is identified. Right carotid artery: Normal opacification is demonstrated within the right common carotid artery and at the carotid bifurcation. The carotid bulb demonstrate peripheral atheromatous plaque. No evidence for stenosis. The proximal, mid and distal portion of the right internal carotid artery demonstrated to be patent. No evidence for stenosis and/or occlusion. Left carotid artery: Normal opacification is demonstrated within the left common carotid artery and at the carotid bifurcation. The carotid bulb demonstrate peripheral atheromatous plaque. No evidence for stenosis. The proximal, mid and distal portion of the left internal carotid artery demonstrated to be patent. No evidence for stenosis and/or occlusion. Intracranial circulation: Intracranial portions of the internal carotid arteries the cavernous sinus portions demonstrates the presence of minimal peripheral atheromatous plaque with no evidence for stenosis and/or aneurysm. The anterior cerebral arteries, middle cerebral arteries and its branches demonstrate normal opacification with no evidence for stenosis, occlusion and/or aneurysm. There is normal venous drainage with no evidence for sinus vein thrombosis. Vertebrobasilar system: The posterior circulation demonstrate codominant bilateral vertebral arteries with no evidence for stenosis and/or evidence for significant dissection. The vertebrobasilar system and [employer] demonstrate to be normal with no evidence for aneurysm, stenosis and/or occlusion. There is suboptimal visualization/perhaps decrease caliber of the right PICA. The brain parenchyma demonstrate normal royal-white matter differentiation with no evidence for mass effect and/or midline shift. There is no evidence for abnormal parenchymal enhancement. The skull base and intracranial structures demonstrate to be within normal limits. Lung apex: No gross abnormalities are noted within the apices.. 03:48 Differential Diagnosis altered mental status, sepsis, flu, CVA. Data reviewed: vital sp4 signs, nurses notes. Consideration of Admission/Observation Patient was admitted/placed on observation. Escalation of care including admission/observation considered. Management of patient was discussed with the following: Hospitalist: Admitting Team . Vice President Of Talent Acquisition: Jason LAGUNA . ED course: Has no evidence of large vessel occlusion on CT angiography. We believe that patient's symptoms stem from subacute cerebellar stroke which has occurred approximately 2 weeks ago. Patient warrants admission for further management and management of nausea with vomiting. Also management of hypertension and diabetes. . 08/28 21:15 Order name: Basic Metabolic Panel; Complete Time: 23:02 sp4 08/28 21:15 Order name: CBC with Diff; Complete Time: 23:02 sp4 08/28 21:15 Order name: LFT's; Complete Time: 23:02 4 08/28 21:15 Order name: Magnesium; Complete Time: 23:02 4 08/28 21:15 Order name: NT PRO-BNP; Complete Time: 23:02 4 08/28 21:15 Order name: PT-INR; Complete Time: 23:02 4 08/28 21:15 Order name: Troponin HS; Complete Time: 23:02 4 08/28 21:23 Order name: Alcohol Level; Complete Time: 23:02 sp4 08/28 21:23 Order name: Urinalysis W/Microscopic; Complete Time: 03:46 4 08/28 21:44 Order name: T4 Free; Complete Time: 23:02 [facility] 08/28 21:44 Order name: Lipase; Complete Time: 23:02 [facility] 08/28 21:44 Order name: Thyroid Stimulating Hormone; Complete Time: 23:02 [facility] 08/28 22:11 Order name: Glucose, Ancillary Testing; Complete Time: 23:02 [facility] 08/28 23:03 Order name: Urine Drug Screen; Complete Time: 03:46 4 08/28 23:04 Order name: Urinalysis W/Microscopic [facility] 08/28 23:08 Order name: Glucose, Ancillary Testing; Complete Time: 00:47 [facility] 08/29 06:34 Order name: Lipid Profile [facility] 08/29 06:39 Order name: Troponin High Sensitivity [facility] 08/29 08:17 Order name: Glucose, Ancillary Testing [facility] 08/29 09:05 Order name: Phosphorus [facility] 08/29 13:32 Order name: Glucose, Ancillary Testing [facility] 08/29 13:59 Order name: Troponin High Sensitivity [facility] 08/28 21:15 Order name: XRAY Chest (1 view); Complete Time: 23:02 4 08/28 23:02 Order name: CT Chest, Abdomen, Pelvis - W/Contrast [facility] 08/28 23:03 Order name: CT Head Brain wo Cont 4 08/29 01:08 Order name: CT Head Angio [facility] 08/29 01:08 Order name: CT Neck Angio [facility] 08/28 21:15 Order name: EKG; Complete Time: 21:16 [facility] 08/29 04:12 Order name: CONS Physician Consult [facility] 03/16 21:15 Order name: Cardiac monitoring; Complete Time: 21:35 sp4 08/28 21:15 Order name: EKG - Nurse/Tech; Complete Time: 21:35 sp4 08/28 21:15 Order name: IV Saline Lock; Complete Time: 21:35 sp4 08/28 21:15 Order name: Labs collected and sent; Complete Time: 21:35 sp4 08/28 21:15 Order name: O2 Per Protocol; Complete Time: 21:35 sp4 08/28 21:15 Order name: O2 Sat Monitoring; Complete Time: 21:35 sp4 EC/16 21:24 Rate is 72 beats/min. Rhythm is regular, Normal Sinus Rhythm. QRS [place] is Normal. CO sp4 interval is normal. QRS interval is normal. QT interval is normal. No Q waves. T waves are Inverted in leads II, III, aVF, V6. No ST changes noted. Clinical impression: No evidence of ischemia. Interpreted by me. Reviewed by me. Administered Medications: 22:04 Drug: Metoprolol PO 25 mg PO once Route: PO; jb4 22:05 Drug: Insulin Regular Human IVP 5 units IVP once {Co-Signature: cm10 (Mohit Inocencio Fraire RN).} Route: IVP; Site: right forearm; 22:05 Drug: NS 0.9% IV 1000 ml IV at 125 ml/hr continuous Route: IV; Rate: 125 ml/hr; Site: [facility] right antecubital; 22:05 Drug: morphine IVP or IV 4 mg IVP once over 4 mins Route: IVP; Infused Over: 4 mins; jb4 Site: right antecubital; 22:05 Drug: Ondansetron IVP 4 mg IVP once; over 2 minutes Route: IVP; Site: right antecubital;4 22:05 Drug: Famotidine IVP 20 mg IVP once; dilute with 10 mL 0.9% NaCl; give over 2 minutes jb4 Route: IVP; Site: right antecubital; 23:17 Drug: metoCLOPramide IVP 10 mg IVP once; over 1 to 2 minutes Route: IVP; Site: right jb4 antecubital; 23:17 Drug: NS 0.9% IV 1000 ml IV at 1 bolus Per protocol; 1000 mL bolus Route: IV; Rate: 1 jb4 bolus; Site: right antecubital; 08/29 01:02 Drug: hydrALAZINE IVP 10 mg IVP once Route: IVP; Site: right antecubital; jb4 01:23 Drug: Promethazine IM 50 mg IM once Route: IM; Site: right gluteus; jb4 01:58 Drug: Metoprolol IVP 5 mg IVP once; Hold for SBP <100 or HR <60. Route: IVP; Site: jb4 right antecubital; 03:50 Not Given (Duplicate Order): ns 0.9% 1000 ml IV at 125 ml/hr continuous jb4 03:51 Not Given (Patient Refused): morphineor iv 4 mg IVP once over 4 mins jb4 Disposition Summary: 08/30/23 03:51 Hospitalization Ordered Notes: Hospitalization Status: Inpatient Admission sp4 Provider: Chung Lane sp4 Condition: Stable sp4 Problem: new sp4 Symptoms: have improved sp4 Bed/Room Type: Standard sp4 Location: Telemetry/MedSurg (Inpatient)(08/30/23 16:16) ds4 Room Assignment: 219(08/30/23 16:16) ds4 Diagnosis - Subacute cerebellar ischemic stroke, intractable nausea and vomiting, hypertensive sp4 urgency, uncontrolled hypertension, uncontrolled diabetes mellitus type II - Ischemic CVA sp4 Forms: - Medication Reconciliation Form sp4 - SBAR form sp4 - Leadership Thank You Letter sp4 Signatures: Dispatcher [employer] EDMS Carloz Blackman ds4 Kristen Chen RN RN cg Bryson, James, RN RN jb4 Lex Zaldivar MD MD sp4 Yee Rueda RN cm10 Corrections: (The following items were deleted from the chart) 08/28 21:44 21:23 LIPASE+C.LAB.BRZ ordered. EDMS EDMS 21:44 21:23 THYROID STIMULAT HORMONE+C.LAB.BRZ ordered. EDMS EDMS 21:44 21:23 T4 FREE+C.LAB.BRZ ordered. EDHI EDMS 08/29 04:19 03:51 Telemetry/MedSurg (Inpatient) sp4 cg 04:19 03:51 sp4 cg 16:16 04:19 [facility] ER HOLD cg ds4 16:16 04:19 ERHOLD- cg ds4
--- NOTE | 2023-08-30 03:52 | ER ---
Nurse's Notes [facility] Name: Almas Chavez Age: 48 yrs Sex: Male : 1975 Arrival Date: 08/29/2023 Time: 21:05 Bed 8 Private MD: Diagnosis: Subacute cerebellar ischemic stroke, intractable nausea and vomiting, hypertensive urgency, uncontrolled hypertension, uncontrolled diabetes mellitus type II ;Ischemic CVA Presentation: 08/28 21:15 Chief complaint: EMS states: We were called for pt being on the floor. Pt reports jb4 laying on the floor due to not feeling well. Pt reports having HTN. On scene it was 206/130. We gave 1 sublingual nitr, 5mg of IV metoprolol via 20g to the RAC, and 4mg of zofran. He reports chest pain that is 5/10. BGL was 370. Coronavirus screen: At this time, the client does not indicate any symptoms associated with coronavirus-19. Ebola Screen: No symptoms or risks identified at this time. 21:15 Method Of Arrival: EMS: [facility] jb4 21:20 Initial Sepsis Screen: Does the patient meet any 2 criteria? No. Patient's initial jb4 sepsis screen is negative. Does the patient have a suspected source of infection? No. Patient's initial sepsis screen is negative. Risk Assessment: Do you want to hurt yourself or someone else? Patient reports no desire to harm self or others. Onset of symptoms was August 29, 2023. Transition of care: patient was not received from another setting of care. 21:20 Acuity: JOANNE 2 jb4 Triage Assessment: 21:20 General: Appears distressed, ill, Behavior is cooperative, anxious. Pain: Complains of jb4 pain in chest Pain does not radiate. Pain currently is 5 out of 10 on a pain scale. EENT: No signs and/or symptoms were reported regarding the EENT system. Neuro: Level of Consciousness is awake, alert, obeys commands, Oriented to person, place, time, situation. Cardiovascular: Skin is clammy and warm. Respiratory: Airway is patent Respiratory effort is even, unlabored, Respiratory pattern is regular, symmetrical. GI: No signs and/or symptoms were reported involving the gastrointestinal system. : No signs and/or symptoms were reported regarding the genitourinary system. Derm: Skin is intact, Skin is clammy, Skin is normal, Skin temperature is warm. Musculoskeletal: Circulation, motion, and sensation intact. Range of motion: intact in all extremities. Historical: - Allergies: 21:20 No Known Allergies; jb4 - PMHx: 21:20 Diabetes - NIDDM; Hypertension; jb4 - Immunization history:: Adult Immunizations. - Family history:: not pertinent. - Social history:: Smoking status: Patient denies any tobacco usage or history of. Screenin:02 [facility] ED Fall Risk Assessment (Adult) History of falling in the last 3 months, jb4 including since admission No falls in past 3 months (0 pts) Confusion or Disorientation No (0 pts) Intoxicated or Sedated No (0 pts) Impaired Gait No (0 pts) Mobility Assist Device Used No (0 pt) Altered Elimination No (0 pt) Score/Fall Risk Level 0 - 2 = Low Risk Oriented to surroundings, Maintained a safe environment. Abuse screen: Denies threats or abuse. Nutritional screening: No deficits noted. Tuberculosis screening: No symptoms or risk factors identified. Assessment: 22:02 Reassessment: see triage note. jb4 22:57 Reassessment: Patient appears in no apparent distress at this time. Patient and/or jb4 family updated on plan of care and expected duration. Pain level reassessed. Patient is alert, oriented x 3, equal unlabored respirations, skin warm/dry/pink. Pt actively vomiting, provider notified. 08/29 00:36 Reassessment: Patient appears in no apparent distress at this time. Patient and/or jb4 family updated on plan of care and expected duration. Pain level reassessed. Patient is alert, oriented x 3, equal unlabored respirations, skin warm/dry/pink. 01:02 Reassessment: ER physician at the bedside. jb4 02:30 Reassessment: Patient appears in no apparent distress at this time. Patient and/or jb4 family updated on plan of care and expected duration. Pain level reassessed. Patient is alert, oriented x 3, equal unlabored respirations, skin warm/dry/pink. 04:00 Reassessment: Patient appears in no apparent distress at this time. Patient and/or jb4 family updated on plan of care and expected duration. Pain level reassessed. Patient is alert, oriented x 3, equal unlabored respirations, skin warm/dry/pink. Vital Signs: 08/28 21:15 BP 173 / 115; Pulse 72; Resp 16; Pulse Ox 98% on R/A; Pain 5/10; jb4 23:15 BP 178 / 107; Pulse 78; Resp 19; Temp 98.7(O); Pulse Ox 98% on R/A; jb4 08/29 00:40 BP 170 / 112; Pulse 71; Resp 16; Pulse Ox 100% on R/A; jb4 01:40 BP 198 / 95; Pulse 77; Resp 16; Pulse Ox 100% on R/A; jb4 02:30 BP 155 / 91; Pulse 76; Resp 16; Pulse Ox 100% on R/A; jb4 04:00 BP 165 / 95; Pulse 76; Resp 18; Pulse Ox 97% on R/A; jb4 08/28 21:15 Pain Scale: Adult 4 ED Course: 08/28 21:11 Patient arrived in ED. ty 21:14 Lex Zaldivar MD is Attending Physician. sp4 21:20 Triage completed. jb4 21:20 Maintain EMS IV. Dressing intact. Good blood return noted. Site clean \T\ dry. Gauge \T\ kristina 4 site: 20g RFA. Flushed right forearm with 5 ml normal saline. 21:20 Arm band placed on right wrist. jb4 21:23 EKG done, by ED staff, reviewed by Lex Zaldivar MD. kmf 21:24 Client placed on continuous cardiac and pulse oximetry monitoring. NIBP monitoring kmf applied. residential case manager on. 21:35 Troponin HS Sent. jb4 21:35 PT-INR Sent. jb4 21:35 NT PRO-BNP Sent. jb4 21:35 Magnesium Sent. jb4 21:35 LFT's Sent. jb4 21:35 CBC with Diff Sent. jb4 21:35 Basic Metabolic Panel Sent. jb4 21:35 Alcohol Level Sent. jb4 22:02 XRAY Chest (1 view) In Process Unspecified. EDMS 22:02 Patient has correct armband on for positive identification. Bed in low position. Call jb4 light in reach. Side rails up X 1. Provided Education on: possible side effects of medication. 22:04 Door closed. Lights dimmed. Warm blanket given. jb4 22:57 Pillow given. kmf 23:58 CT Chest, Abdomen, Pelvis - W/Contrast In Process Unspecified. EDMS 23:58 CT Head Brain wo Cont In Process Unspecified. EDMS 08/29 01:40 No provider procedures requiring assistance completed. jb4 01:43 CT Head Angio In Process Unspecified. EDMS 01:43 CT Neck Angio In Process Unspecified. EDMS 03:[address] MD is Hospitalizing Provider. sp4 04:12 Patient requests food. cm10 04:28 Stuart Roche, RN is Primary Nurse. jb4 07:20 Primary Nurse role handed off by Stuart Roche, RN bp 07:20 Patrick Bryant, RN is Primary Nurse. bp 17:40 Patient admitted, IV remains in place. rs5 Administered Medications: 08/28 22:04 Drug: Metoprolol PO 25 mg PO once Route: PO; jb4 22:05 Drug: Insulin Regular Human IVP 5 units IVP once {Co-Signature: cm10 (flo Rueda RN).} Route: IVP; Site: right forearm; 22:05 Drug: NS 0.9% IV 1000 ml IV at 125 ml/hr continuous Route: IV; Rate: 125 ml/hr; Site: jb right antecubital; 22:05 Drug: morphine IVP or IV 4 mg IVP once over 4 mins Route: IVP; Infused Over: 4 mins; jb4 Site: right antecubital; 22:05 Drug: Ondansetron IVP 4 mg IVP once; over 2 minutes Route: IVP; Site: right antecubital;4 22:05 Drug: Famotidine IVP 20 mg IVP once; dilute with 10 mL 0.9% NaCl; give over 2 minutes jb4 Route: IVP; Site: right antecubital; 23:17 Drug: metoCLOPramide IVP 10 mg IVP once; over 1 to 2 minutes Route: IVP; Site: right jb4 antecubital; 23:17 Drug: NS 0.9% IV 1000 ml IV at 1 bolus Per protocol; 1000 mL bolus Route: IV; Rate: 1 jb4 bolus; Site: right antecubital; 08/29 01:02 Drug: hydrALAZINE IVP 10 mg IVP once Route: IVP; Site: right antecubital; jb4 01:23 Drug: Promethazine IM 50 mg IM once Route: IM; Site: right gluteus; jb4 01:58 Drug: Metoprolol IVP 5 mg IVP once; Hold for SBP <100 or HR <60. Route: IVP; Site: jb4 right antecubital; 03:50 Not Given (Duplicate Order): ns 0.9% 1000 ml IV at 125 ml/hr continuous jb4 03:51 Not Given (Patient Refused): morphineor iv 4 mg IVP once over 4 mins jb4 Medication: 08/28 22:02 VIS not applicable for this client. jb4 Outcome: 08/29 03:51 Decision to Hospitalize by Provider. sp4 04:29 Admitted to ER Hold. Please see [facility] for further documentation. jb4 04:29 Condition: stable 04:29 Discharge instructions given to patient, family, Instructed on the need for admit, Demonstrated understanding of instructions, 17:55 Patient left the ED. rs5 Signatures: Dispatcher [employer] EDStuart Ortez RN RN jb4 Patrick Bryant RN RN bp Sotelo, Ricky, RN RN rs5 Lex Zaldivar MD MD sp4 Yee Rueda RN RN cm10 Martha Machuca [facility] Aguila Portillo Clarissa RN cm10 Corrections: (The following items were deleted from the chart) 08/28 21:24 21:23 EKG done, kmf f 21:44 21:35 LIPASE+C.LAB.BRZ drawn and sent. [facility] EDMS 21:44 21:35 THYROID STIMULAT HORMONE+C.LAB.BRZ drawn and sent. [facility] EDMS 21:44 21:35 T4 FREE+C.LAB.BRZ drawn and sent. [facility] EDMS 23:17 22:05 Famotidine IVP 20 mg IVP in right forearm jb4 jb : 22:05 Ondansetron IVP 4 mg IVP in right forearm jb4 jb 23:17 22:05 NS 0.9% IV 1000 ml IV at 125 ml/hr in right forearm jb4 jb4 23:17 22:05 morphine IVP or IV 4 mg IVP in right forearm over 4 mins jb4 jb
--- NOTE | 2023-08-30 04:03 | P.HP ---
Certification for Inpatient Patient admitted to: Inpatient With expected LOS: <2 Midnights Practitioner: I am a practitioner with admitting privileges, knowledge of patient current condition, hospital course, and medical plan of care. Services: Services provided to patient in accordance with Admission requirements found in Title 42 Section 412.3 of the Code of Federal Regulations Patient History Date of Service: 08/30/23 Reason for admission: Stroke History of Present Illness: 48-year-old male with a past medical history of uncontrolled hypertension, uncontrolled diabetes, tobacco use, presented to the emergency room for generalized weakness, chest pain. is primary historian reports has been experiencing nausea, vomiting, generalized weakness, falls over the past 3 weeks. Reports patient has been seen in the emergency room last couple weeks for elevated blood pressure, diabetes type 2. ER evaluation patient's blood pressure was 173/150, EMS reported excessive hypertensive with systolic greater than 250. Patient was given sublingual nitroglycerin for chest pain, hypertension by EMS. Treated with metoprolol IV 5 mg IV x 1. Patient reported recently taken Jardiance, glyburide for hyperglycemia. Clonidine 0.2 twice daily for hypertension. reports her has had reports multiple falls, inability to stand, inability to tolerate p.o. Patient's blood sugar on ER evaluation was 320, elevated BNP 231, urine 4+ glucosuria, troponin was normal. Chest x-ray no acute abnormality, urine drug screen was negative, CT of the head showed subacute stroke, plan to admit for Subacute cerebellar ischemic stroke, intractable nausea and vomiting,uncontrolled diabetes mellitus type II, Ischemic CVA falls, hypertensive emergency, with Dr. Gomez to consult for neurology. Allergies No Known Allergies Allergy (Unverified 08/30/23 05:00) Home Medications: Empagliflozin [Jardiance] 25 mg PO DAILY 08/30/23 cloNIDine HCL [Clonidine HCl] 0.2 mg PO DAILY 08/30/23 glyBURIDE [Glyburide] 5 mg PO BID 08/30/23 - Past Medical/Surgical History Diabetic: Yes -: Uncontrolled hypertension -: Uncontrolled diabetes -: Hyperlipidemia -: Hypertensive emergency -: Falls -: Acute CVA 08/2023 -: Leg surgery 2014 - Social History Smoking Status: Current some day smoker Alcohol use: No Caffeine use: Yes Place of Residence: Home Review of Systems per HPI Physical Examination - Physical Exam General: Alert, In no apparent distress HEENT: Atraumatic, Normocephalic, PERRLA Neck: Supple, 2+ carotid pulse no bruit Respiratory: Clear to auscultation bilaterally, Normal air movement Cardiovascular: No edema, Normal pulses, Other (Hypertensive emergency) Capillary refill: <2 Seconds Gastrointestinal: Normal bowel sounds, Soft and benign Musculoskeletal: No clubbing, No swelling Integumentary: No rashes, No breakdown Neurological: Other (Alert and oriented x 3, abnormal gait,), Abnormal speech, Abnormal strength - Studies Laboratory Data (last 24 hrs) 08/29/23 08/29/23 08/29/23 21:25 21:25 21:25 WBC 8.00 Hgb 15.0 Hct 43.8 Plt Count 204 PT 11.0 INR 1.00 Sodium 137 Potassium 3.8 BUN 15 Creatinine 1.29 Glucose 320 H Magnesium 2.0 Total Bilirubin 0.7 AST 11 L ALT 17 Alkaline Phosphatase 83 Lipase 20 08/29/23 21:23 WBC Hgb Hct Plt Count PT INR Sodium Potassium BUN Creatinine Glucose Magnesium Total Bilirubin AST ALT Alkaline Phosphatase Lipase Cancelled Assessment and Plan - Plan Assessment plan Subacute cerebellar ischemic stroke, Frequent falls Impaired mobility secondary to CVA Neurology consult, speech consult, PT consult, OT consult Fall precaution Bedside swallow Every 4 hours neurochecks Hypertensive urgency Tobacco use Permissive hypertension Telemetry Educated on tobacco cessation ekg 72 beats/min. Rhythm is regular, Normal Sinus Rhythm. QRS [place] is Normal. [place] interval is normal. QRS interval is normal. QT interval is normal. No Q waves. T waves Inverted in leads II, III, aVF, V6. No ST changes noted. Clinical impression: No evidence of ischemia. Emergency room Patient treated with : Metoprolol PO 25 mg PO once, insulin 5 units IV push, 1 L of normal saline, Zofran, Pepcid, Reglan, hydralazine IV 10 mg IV push, promethazine 50 mg IM x 1, Chest pain Trend troponins Telemetry Permissive hypertension Hyperglycemia secondary uncontrolled diabetes intractable nausea and vomiting A1c ordered, Accu-Cheks, sliding scale insulin. patient and family insisted on eating, bedside swallow completed by ER nurse Full code DVT SCDs Diet n.p.o. Disposition acute inpatient rehab post CVA patient was independent prior Discharge Plan: Other (Rehab) - Advance Directives Does patient have a Living Will: No Does patient have a Durable POA for Healthcare: No - Code Status/Comfort Care Code Status: Full Code Critical Care: No Time Spent Managing Pts Care (In Minutes): 55
[2023-08-30] MEDS ORDERED: ONDANSETRON 4 MG/2 ML VIAL IV PRN (04:10)
[2023-08-30] MEDS: NA CHLORIDE 0.9% 1,000 ML IV SCH (05:00)
[2023-08-30 05:32] VITALS: BMI 23.4
[2023-08-30] MEDS: INSULIN REGULAR (HUMAN) 100 UNIT/ML SQ SCH (07:30)
[2023-08-30] MEDS ORDERED: CLOPIDOGREL 75 MG TABLET ONE (08:11)
[2023-08-30] MEDS ORDERED: ASPIRIN EC 81 MG TAB PO ONE (08:11)
[2023-08-30] MEDS ORDERED: INSULIN REGULAR (HUMAN) 100 UNIT/ML ONE ×2 (08:12→13:30)
[2023-08-30] MEDS ORDERED: NA CHLORIDE 0.9% 1,000 ML ONE (08:13)
[2023-08-30] MEDS: ASPIRIN EC 81 MG TAB PO SCH (08:26)
[2023-08-30] MEDS: CLOPIDOGREL 75 MG TABLET PO SCH (08:26)
[2023-08-30] MEDS: METOPROLOL TARTRATE 5 MG/5 ML INJ IV PRN (09:11)
[2023-08-30] MEDS: AMLODIPINE 5 MG TAB PO ONE (11:29)
--- NOTE | 2023-08-30 12:21 | P.PN ---
Date of Service: 08/30/23 NIHSS: Level of consciousness: 1b. Asked month and age 0 both questions right 1 1 question right 2 0 questions right Horizontal extraocular movement: 0 normal 1 partial gaze palsy; can be overcome 1 partial gaze palsy: Corrects with oculocephalic reflex 2 forced gaze palsy: Cannot be overcome Visual melgar: 0 no vision loss 1 partial hemianopia 2 complete hemianopia 3 patient is bilaterally blind 3 bilateral hemianopia Facial palsy: 0 normal symmetry 1 Minor paralysis 2 partial paralysis 3 bilateral complete paralysis Left arm motor drift 0 no drift for 10 seconds 1 drift, but does not 2 drift, hits bed 2 some effort against gravity 3 no effort against gravity 4 no movement 0 amputation/joint fusion Right arm motor drift Same criteria +1 Left leg motor drift Same criteria Right leg motor drift Same criteria Limb ataxia 0 no ataxia 1 ataxia and 1 limb 2 ataxia in 2 limbs 0 does not understand/paralyzed/amputation Sensation 0 normal; no sensory loss 1 mild/moderate loss: Less sharp/more dull 2 complete loss: Cannot sense being touched at all 2,coma/unresponsive Language/aphasia 0 normal; no aphasia 1 mild-moderate aphasia 2 severe aphasia 3 mute/global/coma/ Dysarthria 0 normal 1 mild to moderate dysarthria 2 severe dysarthria unintelligible/mute/anarthric 0 intubated/unable to test Extinction/inattention 0 no abnormality 1 visual/tactile/auditory/spatial/personal inattention 2 profound Bryce attention NIHSS = 3
[2023-08-30] MEDS: FOLIC ACID 1 MG in NA CHLORIDE 0.9% 50 ML IV ONE (13:00)
[2023-08-30] MEDS ORDERED: AMLODIPINE 5 MG TAB ONE (13:14)
[2023-08-30] MEDS ORDERED: ENOXAPARIN 40 MG/0.4 ML SQ ONE (16:13)
[2023-08-30] MEDS: ENOXAPARIN 40 MG/0.4 ML SQ SCH (17:00)
--- NOTE | 2023-08-30 17:31 | CON ---
Reason For Consultation: Consultation called because of stroke. History Of Present Illness: Mr. Chavez is a 48-year-old, right-handed, patient with uncontrolled, untreated hypertension, diabetes mellitus, and dyslipidemia and has been so for severa l years including when he had a visit in 2018 with uncontrolled hypertension prior to getting a job. The reason for this visit is because of a 3-week progressive problem with nausea, vomiting, incoordi nation, and multiple falls. He was seen in the emergency room for a few weeks with elevated blood pr essures and uncontrolled blood sugars. At the time of his presentation, blood pressure 173/150 and t he actually got up to 250. He was given sublingual nitroglycerin and IV metoprolol 5 mg t o help with his blood pressure, clonidine 0.2 mg as well. Blood sugars were elevated. He was given Jardiance and glyburide. It is noted that the patient's from review of the chart said he had be en falling and unable to stand and unable to keep food down with significant nausea and vomiting and blood sugars were around 320. He had significant glucose in his urine. His workup did include a neg ative urine drug screen. Chest x-ray showed no acute abnormalities and his head CT scan showed an ac pillo stroke to a subacute stroke in the cerebellum on the right with the patient subsequently having a CT angiogram of head and neck showing no large vessel occlusion. The study did suggest the inabilit y to see the posterior-inferior cerebral artery on the right side. Past Medical History: As noted above in addition. Social History: The patient smokes pack cigarettes daily. Allergies: NO KNOWN DRUG ALLERGIES. Home Medications: 1.Clonidine 0.2 mg daily. 2.Glyburide 5 mg twice daily. 3.Jardiance 25 mg daily. Family History: Noncontributory. Social History: As noted and also occasional caffeinated beverages. Past Surgical History: None. Review of Systems: As noted nausea, vomiting, incoordination, difficulty focusing and mild diffuse weakness. Physical Examination: Vital Signs: Blood pressure ranged from 156-197/91-100, pulse of 70s to 85, temperature 98.0, respir atory rate 12 to 18, oxygen saturation 100%. Height 5 feet 9 inches, weight 158 pounds. General: Mr. Chavez is resting in the emergency room bed. HEENT: He appears normocephalic, atraumatic. Sclerae anicteric. Oropharynx pink and moist. Neck: Supple. Chest: Clear. Heart: Regular. Extremities: Show no significant edema, cyanosis or clubbing. NEUROLOGICAL: He is alert, oriented to person, place, time, and situation. Follows commands appropr iately. Does have slight nystagmus as he moves about from left to right, but has no diplopia, has go od visual melgar. Face is already symmetric. Sensation intact bilaterally. He does not have extinc tion in the extremities. He is able to tell light touch equally well on both sides. Strength seems intact for at least 5-/5 proximally and distally upper and lower extremities. He has dysmetria with past-pointing on the right hand with difficulty with fine finger movements and rapid alternating move ments on the right. Right leg shows mild difficulty with [id number], has some dysmetria noted ther e. He has strength again symmetric sensation and intact reflexes symmetric. The patient will be amb ulated with physical therapist with gait balance in place. Laboratory Studies: Complete blood count with differential completely normal. INR 1.00. His tropon ins suggestive of myocardial infarction with elevation of troponin 1 from normal on the 16th of 50.9- 67.4, on the 17th at 5:40 in the morning and now at 1:26 elevated to 84.7. His blood glucose up to 2 47. Sodium 137, potassium 3.8, chloride 101 carbon dioxide 28, BUN 15, creatinine 1.29. Liver funct ion studies unremarkable. AST 11, alkaline phosphatase 83, ALT 17, beta-natriuretic peptide 231, tot al cholesterol 232, LDL cholesterol 165, HDL 56. His cholesterol HDL ratio 4.15, TSH 0.836, free T4 1.17. Urinalysis is 4+ glucose, 1+ ketones, 5-10 red blood cells, 3+ total protein, and drug screen is negative. Chest x-ray shows no acute intrathoracic processes. Assessment: Mr. 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 He has uncontrolled hypertension, diabetes, dyslipidemi a, and cigarette smoking. However, his neurological deficits are noted to be mild and with aggressiv e physical therapy, he has a very good chance of a very good recovery. He was admonished about smoki ng and he should stop and be aggressive about being compliant with medications to control his diabete s, hypertension, dyslipidemia. Plan: He should be evaluated for his potential benefit from inpatient rehabilitation where can recei ve physical, occasional, and speech therapy while medical conditions are being addressed such as hype rtension, diabetes and dyslipidemia. May give Eliquis 2.5 mg twice daily for DVT risk reduction and aspirin as well. At this point, his blood pressures may be brought back down about 10% per day from numbers such as th e 180s or 190s towards the 130s and 140s over the next 3 to 5 days. In addition, he needs neuro chec ks as this posterior circulation stroke, although at this point not significantly impacting his abili ty to maintain respiration and control heart rate. Those should be carefully evaluated with frequent neuro checks around every 30 minutes to 1 hour for at least the next 24 hours. He should have again diabetes mellitus, dyslipidemia, hypertension aggressively managed and in inpatient rehabilitation m ay be effective. TERRY/ANNMARIE Voice ID: [id number] Report ID: [id number]
[2023-08-30] MEDS: HYDRALAZINE HCL 20 MG/ML VIAL IV PRN (18:43)
[2023-08-30] MEDS: ATORVASTATIN 40 MG TAB PO SCH (20:37)
[2023-08-30] MEDS: AMLODIPINE 5 MG TAB PO SCH (20:37)
[2023-08-31 06:24] LABS: Absolute Eosinophils 0.2 K/uL (0-0.5); Absolute Lymphocytes (CBC) 2.7 K/uL (0.7-4.9); Absolute Monocytes 0.5 K/uL (0.1-1.3); Absolute Neutrophil 4.5 K/uL (1.8-8.0); Basophils % 0.5 % (0-1.3); Eosinophils % 2.1 % (0-4.4); Hematocrit 38.7 % (39.6-49.0); Hemoglobin 13.6 g/dL (13.6-17.9); MCH 28.8 pg (27.0-35.0); MCHC 35.1 g/dL (32.0-36.0); MCV 82.2 fL (80-100); MPV 8.1 fL (7.6-11.3); Monocytes % 6.7 % (3.3-12.3); Neutrophils % 56.7 % (41.7-73.7); Nucleated Red Blood Cells % 0.1 % (0-0); Platelets 185 thou/uL (152-406); RBC Red Blood Cell Count 4.71 M/uL (4.33-5.43); Red Cell Distribution Width 12.7 % (12.1-15.2)
[2023-08-31 06:37] LABS: Anion Gap 8.5 mEq/L (5.0-15.0); Magnesium 1.8 mg/dL (1.6-2.4); Potassium 3.5 mEq/L (3.5-5.1); Troponin High Sensitivity 63.9 pg/mL (<58.9)
[2023-08-31] MEDS: FOLIC ACID 1 MG in NA CHLORIDE 0.9% 50 ML IV SCH (08:02)
[2023-08-31] MEDS: HYDROCODONE/APAP 5/325 MG TAB PO PRN (08:02)
[2023-08-31] MEDS: POTASSIUM CL SA 10 MEQ TAB PO ONE (09:40)
[2023-08-31] MEDS: ONDANSETRON 4 MG/2 ML VIAL IV PRN (09:40)
--- NOTE | 2023-08-31 11:08 | RAD REPORT ---
EXAM DESCRIPTION: RAD - Abdomen 1 View (KUB) - 08/31/2023 10:48 am CLINICAL HISTORY: abd pain COMPARISON: No comparisons FINDINGS: Nonobstructive bowel gas pattern. No acute osseous abnormality.Visualized lungs are unrema rkable.No abnormal calcifications. Moderate formed stool. IMPRESSION: Nonobstructive bowel gas pattern.
--- NOTE | 2023-08-31 11:18 | P.PN ---
Subjective Date of Service: 08/31/23 Chief Complaint: Stroke Pt is very frail. He just vomited food items before I saw him. The nurse gave him iv zofran. Pt has low grade fever. Will obtain blood cx. Review of Systems General: Malaise, Other (low grade fever) Eyes: Unremarkable ENT: Unremarkable Respiratory: Unremarkable Cardiovascular: Unremarkable Gastrointestinal: Nausea, Vomiting Genitourinary: Unremarkable Musculoskeletal: Unremarkable Integumentary: Unremarkable Neurological: Unremarkable Lymphatics: Unremarkable Physical Examination - Vital Signs Temperature: 99.4 F Blood Pressure: 160/82 Pulse: 79 Respirations: 18 Pulse Ox (%): 98 - Physical Exam General: Alert, In no apparent distress, Oriented x3, Mild distress HEENT: Atraumatic, Normocephalic Neck: Supple, 2+ carotid pulse no bruit Respiratory: Clear to auscultation bilaterally, Normal air movement Cardiovascular: No edema, Normal pulses, Regular rate/rhythm, Normal S1 S2 Capillary refill: <2 Seconds Gastrointestinal: Normal bowel sounds, Soft and benign, Non-distended Musculoskeletal: No clubbing, No swelling Integumentary: No rashes, No breakdown, No significant lesion Neurological: Normal gait, Normal speech, Normal strength at 5/5 x4 extr Lymphatics: No axilla or inguinal lymphadenopathy Assessment And Plan - Plan Subacute cerebellar ischemic stroke: Per imaging study: Will allow permissive htn. Continue aspirin and atorvastatin. Consulted Neurology, VIDEO TECHNICIAN, PT/OT. Will continue neurochecks. Frequent falls: Likely due to CVA. Will continue fall precaution. Hypertensive urgency: Allow permissive htn due to CVA. Tobacco use: Pt was advised to quit smoking. Will give nicotine patch. Nausea and vomiting: Will give antiemetic. F/u KUB and obtain blood cx. Chest pain: Will r/o ACS. Likely due to elevated BP. trend troponin. Will continue telemetry DM II; Continue accuchek, SSI and ADA diet Code: full DVT ppx: SCD Disposition: Pt will need acute inpatient rehab placement
--- NOTE | 2023-08-31 12:37 | RAD REPORT ---
EXAM DESCRIPTION: CT - Chest Abdomen Pelvis W Cont - 08/30/2023 6:36 am CLINICAL HISTORY: 48 years Male abdominal pain, vomiting TECHNIQUE: Contiguous axial images obtained through the chest, abdomen, and pelvis following IV cont rast. Coronal and sagittal reformatted images provided. This CT exam was performed according to our departmental dose-optimization program, which includes on e or more of the following dose reduction techniques: automated exposure control, adjustment of the m A and/or kV according to patient size, and/or use of iterative reconstruction technique. COMPARISON: No prior exams provided for comparison. FINDINGS: The lungs are clear without focal consolidation, effusion, or pneumothorax. The central ai rways are patent. The heart is normal in size without pericardial effusion. The aorta and central pulmonary vasculature are normal in caliber. No lymphadenopathy in the chest. The liver, biliary tree, gallbladder, pancreas, spleen, adrenal glands, kidneys, urinary bladder, and osseous structures are normal. Mild colonic constipation without bowel inflammation, obstruction, free intraperitoneal air, or ascit es. The appendix is normal. IMPRESSION: No acute findings in the chest. Mild colonic constipation. No other acute findings in the abdomen or pelvis. Electronically signed by: Angela Peralta MD 08/30/2023 12:33 AM CDT Due to temporary technical issues with the PACS/Fluency reporting system, reports are being signed by the in house radiologist without review as a courtesy to ensure prompt reporting. The interpreting r adiologist is fully responsible for the content of the report.
--- NOTE | 2023-08-31 12:39 | RAD REPORT ---
EXAM DESCRIPTION: CT - Head Brain Wo Cont - 08/30/2023 6:36 am ADDENDUM #1 THIS REPORT CONTAINS FINDINGS THAT MAY BE CRITICAL TO PATIENT CARE: The findings were verbally discus sed via telephone conference with Dr. Lex Zaldivar MD by Dr. Angela Peralta on 08/30/2023 12:40 AM CDT . The results were acknowledged and understood. Electronically signed by: Angela Peralta MD 08/30/2023 12:40 AM CDT End of Addendum EXAM DESCRIPTION: Head Brain Wo Cont CLINICAL HISTORY: 48 years Male HEADACHE, HTN TECHNIQUE: Contiguous axial CT images obtained through the brain without IV contrast. Coronal and sa gittal reformats also provided. This CT exam was performed according to our departmental dose-optimization program, which includes on e or more of the following dose reduction techniques: automated exposure control, adjustment of the m A and/or kV according to patient size, and/or use of iterative reconstruction technique. COMPARISON: 08/06/2023 FINDINGS: Abnormal low attenuation at the inferior and medial aspects of the right cerebellar hemisp here are consistent with a subacute infarct, new since the prior exam. This does not appear hyperacut e. There is no intracranial hemorrhage, extra-axial collection, or visualized acute transcortical infarc tion. The ventricles are normal in size and contour without mass-effect or midline shift. Osseous structures are normal. The paranasal sinuses and mastoid air cells are clear. IMPRESSION: Subacute infarct in the right cerebellar hemisphere is new since the prior exam. No visu alized hemorrhage or mass effect. Electronically signed by: Angela Peralta MD 08/30/2023 12:36 AM CDT Due to temporary technical issues with the PACS/Fluency reporting system, reports are being signed by the in house radiologist without review as a courtesy to ensure prompt reporting. The interpreting r adiologist is fully responsible for the content of the report.
--- NOTE | 2023-08-31 12:40 | RAD REPORT ---
EXAM DESCRIPTION: CT - Head angio - 08/30/2023 6:39 am CLINICAL HISTORY: 48 years, Male, stroke subacute COMPARISON: None TECHNIQUE: Multiple transaxial tomograms from the aortic arch through the brain were performed after administration of large bolus of IV contrast for complete opacification of the carotid arteries and intracranial vessels. Subsequent 2-D and 3-D multiplanar reformats, volume rendering technique and maximum intensity projec tion images were generated and reviewed An individualized dose optimization technique, Automated Exposure Control, was utilized for the perfo rmed procedure. CAROTID STENOSIS REFERENCE USING NASCET CRITERIA: % ICA stenosis = (1 - narrowest ICA diameter/diamet er of distal cervical ICA) x 100. Mild - <50% stenosis. Moderate - 50-69% stenosis. Severe - 70-94% stenosis. Near occlusion - 95-99% stenosis. Occluded - 100% stenosis. FINDINGS: Ascending aorta: There is a normal branching pattern of the great vessels off the arch. There are codominant vertebral arteries which demonstrate normal opacification, slight prominence o f the liver to artery. No great vessel origin stenosis is identified. Right carotid artery: Normal opacification is demonstrated within the right common carotid artery and at the carotid bifurcation. The carotid bulb demonstrate peripheral atheromatous plaque. No evidence for stenosis. The proximal, mid and distal portion of the right internal carotid artery demonstrated to be patent. No evidence for stenosis and/or occlusion. Left carotid artery: Normal opacification is demonstrated within the left common carotid artery and at the carotid bifurcation. The carotid bulb demonstrate peripheral atheromatous plaque. No evidence for stenosis. The proximal, mid and distal portion of the left internal carotid artery demonstrated to be patent. No evidence for stenosis and/or occlusion. Intracranial circulation: Intracranial portions of the internal carotid arteries the cavernous sinus portions demonstrates the presence of minimal peripheral atheromatous plaque with no evidence for abad nosis and/or aneurysm. The anterior cerebral arteries, middle cerebral arteries and its branches demo nstrate normal opacification with no evidence for stenosis, occlusion and/or aneurysm. There is alisa l venous drainage with no evidence for sinus vein thrombosis. Vertebrobasilar system: The posterior circulation demonstrate codominant bilateral vertebral arteries with no evidence for stenosis and/or evidence for significant dissection. The vertebrobasilar system and [employer] demonstrate to be normal with no evidence for aneurysm, stenosis and/or occlusion. There is suboptimal visualization/perhaps decrease caliber of the right PICA. The brain parenchyma demonstrate normal royal-white matter differentiation with no evidence for mass e ffect and/or midline shift. There is no evidence for abnormal parenchymal enhancement. The skull base and intracranial structures demonstrate to be within normal limits. Lung apex: No gross abnormalities are noted within the apices. IMPRESSION: Suboptimal visualization/perhaps decrease caliber of the right PICA. No evidence for significant stenosis and/or occlusion of the intracranial vasculature. No evidence for significant stenosis and/or occlusion of the cervical carotid arteries. Electronically signed by: Kraig Acosta MD 08/30/2023 02:23 AM CDT Due to temporary technical issues with the PACS/Fluency reporting system, reports are being signed by the in house radiologist without review as a courtesy to ensure prompt reporting. The interpreting r adiologist is fully responsible for the content of the report.
[2023-08-31 15:19] LABS: Anion Gap 6.2 mEq/L (5.0-15.0); Potassium 3.2 mEq/L (3.5-5.1)
[2023-08-31] MEDS: POTASSIUM 25 MEQ EFFERV TAB PO ONE (16:03)
[2023-08-31] MEDS: PROMETHAZINE INJ 25 MG/ML AMP IV PRN (21:05)
[2023-08-31] MEDS: NICOTINE 7 MG/PAT TD SCH (21:55)
[2023-08-31 22:53] LABS: Anion Gap 9.3 mEq/L (5.0-15.0); Potassium 3.3 mEq/L (3.5-5.1)
[2023-09-01 06:52] LABS: Absolute Eosinophils 0.1 K/uL (0-0.5); Absolute Monocytes 0.5 K/uL (0.1-1.3); Absolute Neutrophil 3.2 K/uL (1.8-8.0); Basophils % 0.5 % (0-1.3); Eosinophils % 1.8 % (0-4.4); Hematocrit 38.6 % (39.6-49.0); Hemoglobin 13.4 g/dL (13.6-17.9); Lymphocytes % 43.3 % (15.3-44.8); MCH 28.6 pg (27.0-35.0); MCHC 34.7 g/dL (32.0-36.0); MCV 82.5 fL (80-100); MPV 7.8 fL (7.6-11.3); Monocytes % 7.6 % (3.3-12.3); Neutrophils % 46.8 % (41.7-73.7); Nucleated Red Blood Cells % 0.3 % (0-0); Platelets 185 thou/uL (152-406); RBC Red Blood Cell Count 4.68 M/uL (4.33-5.43); Red Cell Distribution Width 12.9 % (12.1-15.2)
[2023-09-01 07:07] LABS: Anion Gap 6.3 mEq/L (5.0-15.0); Magnesium 1.6 mg/dL (1.6-2.4); Potassium 3.3 mEq/L (3.5-5.1)
[2023-09-01] MEDS: POTASSIUM CL SA 10 MEQ TAB PO SCH (08:52)
[2023-09-01] MEDS: Magnesium Sulfate 2gm IVPB 2 G/50 ML BAG IV ONE (08:52)
--- NOTE | 2023-09-01 11:05 | P.PN ---
Subjective Date of Service: 09/01/23 Chief Complaint: Stroke Pt is very frail. He is complaining of back pain and nausea. Will try reglan. The nurse gave him phenergan. No growth on blood culture. No other complaints. Review of Systems General: Unremarkable Eyes: Unremarkable ENT: Unremarkable Respiratory: Unremarkable Cardiovascular: Unremarkable Gastrointestinal: Nausea, Vomiting Genitourinary: Unremarkable Musculoskeletal: Unremarkable Integumentary: Unremarkable Neurological: Unremarkable Lymphatics: Unremarkable Physical Examination - Vital Signs Temperature: 99.4 F Blood Pressure: 187/88 Pulse: 87 Respirations: 14 Pulse Ox (%): 98 - Physical Exam General: Alert, In no apparent distress, Oriented x3 HEENT: Atraumatic, Normocephalic, PERRLA Neck: Supple, 2+ carotid pulse no bruit Respiratory: Clear to auscultation bilaterally, Normal air movement Cardiovascular: No edema, Normal pulses, Regular rate/rhythm, Normal S1 S2 Capillary refill: <2 Seconds Gastrointestinal: Normal bowel sounds, Soft and benign, Non-distended Musculoskeletal: No clubbing, No swelling Integumentary: No rashes, No breakdown, No significant lesion Neurological: Normal gait, Normal speech, Normal strength at 5/5 x4 extr Lymphatics: No axilla or inguinal lymphadenopathy Assessment And Plan - Plan Subacute cerebellar ischemic stroke: Per imaging study: Will resume BP meds. Continue aspirin and atorvastatin. Consulted Neurology, NURSE TECH, PT/OT. Will continue neurochecks. Frequent falls: Likely due to CVA. Will continue fall precaution. Hypertensive urgency: Will resume BP med.. Tobacco use: Pt was advised to quit smoking. Will give nicotine patch. Nausea and vomiting: Will give antiemetic, like reglan. KUB is unremarkable. Hypokalemia: K is 3.3. Will replete and monitor. Hypomagnesemia: mag is 1.6. Will replete and monitor. Chest pain: Will r/o ACS. Likely due to elevated BP. Trend troponin. Will continue telemetry DM II: Continue accuchek, SSI, and ADA diet Code: full DVT ppx: SCD Disposition: Pt will need acute inpatient rehab placement.
[2023-09-01] MEDS: MORPHINE 2 MG/ML SYR IV PRN (11:14)
--- NOTE | 2023-09-01 14:14 | EKG ---
Test Date: 2023-08-29 Test Time: 20:18:44 Channel Cementer: [place] MEASUREMENT RESULTS: Intervals: Rate: 72 TX: 124 QRSD: 94 QT: 398 QTc: 435 [place]: P: 78 TX: 124 QRS: 55 T: -67 INTERPRETIVE STATEMENTS: Normal sinus rhythm T wave abnormality, consider inferolateral ischemia Abnormal ECG No previous ECG available for comparison Electronically Signed On 09-01-23 14:07:26 CDT by Law Casas
[2023-09-01] MEDS: METOCLOPRAMIDE 10 MG/2mL INJ IV PRN (16:53)
[2023-09-02] MEDS: ONDANSETRON 4 MG (ODT) TAB PO PRN (04:08)
[2023-09-02] MEDS: POLYETHYL GLY 3350 17 GM/DOSE PO ONE (05:00)
[2023-09-02 07:22] LABS: Absolute Eosinophils 0.2 K/uL (0-0.5); Absolute Lymphocytes (CBC) 2.3 K/uL (0.7-4.9); Absolute Monocytes 0.5 K/uL (0.1-1.3); Basophils % 0.5 % (0-1.3); Eosinophils % 2.3 % (0-4.4); Hematocrit 36.2 % (39.6-49.0); Hemoglobin 12.5 g/dL (13.6-17.9); Lymphocytes % 33.4 % (15.3-44.8); MCHC 34.6 g/dL (32.0-36.0); MCV 83.6 fL (80-100); MPV 7.7 fL (7.6-11.3); Monocytes % 6.7 % (3.3-12.3); Neutrophils % 57.1 % (41.7-73.7); Nucleated Red Blood Cells % 0.2 % (0-0); Platelets 182 thou/uL (152-406); RBC Red Blood Cell Count 4.33 M/uL (4.33-5.43); Red Cell Distribution Width 12.6 % (12.1-15.2)
[2023-09-02 07:29] LABS: Anion Gap 6.9 mEq/L (5.0-15.0); Magnesium 1.9 mg/dL (1.6-2.4); Potassium 3.9 mEq/L (3.5-5.1)
--- NOTE | 2023-09-02 09:37 | P.PN ---
Subjective Date of Service: 09/02/23 Chief Complaint: Stroke Pt is very frail. He is complaining of back pain and nausea. Reglan did not help. Will give high dose of scheduled zofran in order to control the nausea. No growth on blood culture. No other complaints. Review of Systems General: Weakness Eyes: Unremarkable ENT: Unremarkable Respiratory: Unremarkable Cardiovascular: Unremarkable Gastrointestinal: Unremarkable Genitourinary: Unremarkable Musculoskeletal: Unremarkable Integumentary: Unremarkable Neurological: Unremarkable Lymphatics: Unremarkable Physical Examination - Vital Signs Temperature: 98.9 F Blood Pressure: 138/79 Pulse: 73 Respirations: 16 Pulse Ox (%): 99 - Physical Exam General: Alert, In no apparent distress, Oriented x3 HEENT: Atraumatic, Normocephalic, PERRLA Neck: Supple, 2+ carotid pulse no bruit Respiratory: Clear to auscultation bilaterally, Normal air movement Cardiovascular: No edema, Normal pulses, Regular rate/rhythm, Normal S1 S2 Capillary refill: <2 Seconds Gastrointestinal: Normal bowel sounds, Soft and benign, Non-distended Musculoskeletal: No clubbing, No swelling Integumentary: No rashes, No breakdown, No significant lesion Neurological: Sensation intact Lymphatics: No axilla or inguinal lymphadenopathy Assessment And Plan - Plan Subacute cerebellar ischemic stroke: CT head shows subacute infarct in the right cerebrum. Will continue aspirin and atorvastatin. Consulted Neurology, [employer], PT/OT. Will continue neurochecks. Intractable nausea and vomiting: Due to CVA. Will give zofran 8mg iv TID. If uncontrolled, will add baclofen per Neurology recommendation. Frequent falls: Likely due to CVA. Will continue fall precaution. Hypertensive urgency: Will resume BP med.. Tobacco use: Pt was advised to quit smoking. Will give nicotine patch. Nausea and vomiting: Will give antiemetic, like reglan. KUB is unremarkable. Hypokalemia: K is 3.3. Will replete and monitor. Hypomagnesemia: mag is 1.6. Will replete and monitor. Chest pain: Will r/o ACS. Likely due to elevated BP. Trend troponin. Will continue telemetry DM II: Continue accuchek, SSI, lantus 12u daily, and ADA diet Code: full DVT ppx: SCD Disposition: Pt will need acute inpatient rehab placement.
[2023-09-02] MEDS: Mupirocin NASAL 2 APPL/1 GM TUBE NAS SCH (10:30)
[2023-09-02] MEDS: INSULIN GLARGINE 100 UNIT/ML SQ SCH (10:33)
[2023-09-02] MEDS: BISACODYL 10 MG RECTAL SUPP PR ONE (16:08)
[2023-09-02] MEDS: ONDANSETRON 4 MG/2 ML VIAL IV PRN (16:17)
[2023-09-03 05:30] LABS: Absolute Eosinophils 0.2 K/uL (0-0.5); Absolute Lymphocytes (CBC) 3.2 K/uL (0.7-4.9); Absolute Monocytes 0.4 K/uL (0.1-1.3); Absolute Neutrophil 2.8 K/uL (1.8-8.0); Basophils % 0.3 % (0-1.3); Eosinophils % 3.2 % (0-4.4); Hematocrit 33.8 % (39.6-49.0); Hemoglobin 11.9 g/dL (13.6-17.9); MCH 29.2 pg (27.0-35.0); MCHC 35.2 g/dL (32.0-36.0); MCV 82.9 fL (80-100); MPV 7.6 fL (7.6-11.3); Monocytes % 6.2 % (3.3-12.3); Neutrophils % 42.3 % (41.7-73.7); Nucleated Red Blood Cells % 0.2 % (0-0); Platelets 173 thou/uL (152-406); RBC Red Blood Cell Count 4.08 M/uL (4.33-5.43); Red Cell Distribution Width 12.7 % (12.1-15.2)
[2023-09-03 05:49] LABS: Anion Gap 8.5 mEq/L (5.0-15.0); Magnesium 1.8 mg/dL (1.6-2.4); Potassium 3.5 mEq/L (3.5-5.1)
[2023-09-03] MEDS: MAGNESIUM SULFATE 1 gm IVPB 1 GM/100 ML BAG IV ONE (06:09)
[2023-09-03] MEDS: INSULIN GLARGINE 100 UNIT/ML SQ SCH (08:00)
[2023-09-03] MEDS: POTASSIUM CL SA 10 MEQ TAB PO ONE ×2 (08:01→14:10)
[2023-09-03] MEDS ORDERED: POTASSIUM CL SA 10 MEQ TAB PO ONE (09:00)
--- NOTE | 2023-09-03 10:22 | P.PN ---
Subjective Date of Service: 09/03/23 Chief Complaint: Stroke Pt is very frail. He vomited his morning meds. Pt agreed to take his meds with applesauce. Will continue high dose of scheduled zofran in order to control the nausea. No growth on blood culture. No other complaints. Review of Systems General: Unremarkable Eyes: Unremarkable ENT: Unremarkable Respiratory: Unremarkable Cardiovascular: Unremarkable Gastrointestinal: Nausea, Vomiting Genitourinary: Unremarkable Musculoskeletal: Unremarkable Integumentary: Unremarkable Neurological: Weakness Lymphatics: Unremarkable Physical Examination - Vital Signs Temperature: 98.0 F Blood Pressure: 165/85 Pulse: 63 Respirations: 18 Pulse Ox (%): 98 - Physical Exam General: Alert, In no apparent distress, Oriented x3 HEENT: Atraumatic, Normocephalic Neck: Supple, 2+ carotid pulse no bruit Respiratory: Clear to auscultation bilaterally, Normal air movement Cardiovascular: No edema, Normal pulses, Regular rate/rhythm, Normal S1 S2 Capillary refill: <2 Seconds Gastrointestinal: Normal bowel sounds, Soft and benign, Non-distended Musculoskeletal: No clubbing, No swelling Integumentary: No rashes, No breakdown Neurological: Normal speech, Sensation intact, Abnormal strength Lymphatics: No axilla or inguinal lymphadenopathy Assessment And Plan - Plan Subacute cerebellar ischemic stroke: CT head shows subacute infarct in the right cerebrum. Will continue aspirin and atorvastatin. Consulted Neurology, [employer] RUBBER, PT/OT. Will continue neurochecks. Intractable nausea and vomiting: Due to CVA. Will give zofran 8mg iv TID. If uncontrolled, will add baclofen per Neurology recommendation. Take meds with applesauce Frequent falls: Likely due to CVA. Will continue fall precaution. Hypertensive urgency: Will resume BP med.. Tobacco use: Pt was advised to quit smoking. Will give nicotine patch. Nausea and vomiting: Will give antiemetic, like reglan. KUB is unremarkable. Hypokalemia: K is 3.5<- 3.3. Will replete and monitor. Hypomagnesemia: mag is 1.6. Repleted. Will monitor. Chest pain: Will r/o ACS. Likely due to elevated BP. Trend troponin. Will continue telemetry DM II: Continue accuchek, SSI, lantus 18u daily, and ADA diet Code: full DVT ppx: SCD Disposition: Pt will need acute inpatient rehab placement.
[2023-09-03] MEDS: ZOLPIDEM TARTRATE 5 MG TABLET PO ONE (22:06)
[2023-09-04 04:05] LABS: Absolute Eosinophils 0.2 K/uL (0-0.5); Absolute Lymphocytes (CBC) 2.3 K/uL (0.7-4.9); Absolute Monocytes 0.5 K/uL (0.1-1.3); Absolute Neutrophil 3.2 K/uL (1.8-8.0); Basophils % 0.6 % (0-1.3); Eosinophils % 3.4 % (0-4.4); Hematocrit 33.9 % (39.6-49.0); Hemoglobin 11.9 g/dL (13.6-17.9); Lymphocytes % 36.1 % (15.3-44.8); MCH 29.3 pg (27.0-35.0); MCHC 35.1 g/dL (32.0-36.0); MCV 83.4 fL (80-100); MPV 7.9 fL (7.6-11.3); Monocytes % 8.1 % (3.3-12.3); Neutrophils % 51.8 % (41.7-73.7); Nucleated Red Blood Cells % 0.2 % (0-0); Platelets 174 thou/uL (152-406); RBC Red Blood Cell Count 4.07 M/uL (4.33-5.43); Red Cell Distribution Width 12.6 % (12.1-15.2)
[2023-09-04 04:30] LABS: Anion Gap 7.9 mEq/L (5.0-15.0); Magnesium 1.7 mg/dL (1.6-2.4); Potassium 3.9 mEq/L (3.5-5.1)
[2023-09-04] MEDS: MAGNESIUM SULFATE 1 gm IVPB 1 GM/100 ML BAG IV ONE (04:51)
[2023-09-04] MEDS: POTASSIUM CL SA 10 MEQ TAB PO ONE (04:51)
[2023-09-04 05:04] LABS: Phosphorus 2.9 mg/dL (2.5-4.9)
--- NOTE | 2023-09-04 07:02 | P.PN ---
Subjective Date of Service: 09/04/23 Chief Complaint: Stroke -Some nausea vomiting,, as needed antiemetics General: Alert, In no apparent distress, Oriented x3 HEENT: Atraumatic, Normocephalic Neck: Supple, 2+ carotid pulse no bruit Respiratory: Clear to auscultation bilaterally, Normal air movement Cardiovascular: No edema, Normal pulses, Regular rate/rhythm, Normal S1 S2 Capillary refill: <2 Seconds Gastrointestinal: Normal bowel sounds, Soft and benign, Non-distended Musculoskeletal: No clubbing, No swelling Integumentary: No rashes, No breakdown Neurological: Normal speech, Sensation intact, Abnormal strength Lymphatics: No axilla or inguinal lymphadenopathy Review of Systems Per HPI Physical Examination - Vital Signs Temperature: 99.5 F Blood Pressure: 150/78 Pulse: 67 Respirations: 18 Pulse Ox (%): 99 Assessment And Plan - Plan Assessment plan Subacute cerebellar ischemic stroke, Frequent falls Impaired mobility secondary to CVA Neurology consult, speech consult, PT consult, OT consult Fall precaution Bedside swallow Every 4 hours neurochecks Hypertensive urgency Tobacco use Permissive hypertension Telemetry Educated on tobacco cessation ekg 72 beats/min. Rhythm is regular, Normal Sinus Rhythm. QRS [place] is Normal. SC interval is normal. QRS interval is normal. QT interval is normal. No Q waves. T waves Inverted in leads II, III, aVF, V6. No ST changes noted. Clinical impression: No evidence of ischemia. Emergency room Patient treated with : Metoprolol PO 25 mg PO once, insulin 5 units IV push, 1 L of normal saline, Zofran, Pepcid, Reglan, hydralazine IV 10 mg IV push, promethazine 50 mg IM x 1, Chest pain Trend troponins Telemetry Permissive hypertension Hyperglycemia secondary uncontrolled diabetes intractable nausea and vomiting A1c ordered, Accu-Cheks, sliding scale insulin. patient and family insisted on eating, bedside swallow completed by ER nurse Full code DVT SCDs Diet speech eval Disposition acute inpatient rehab post CVA patient was independent prior Discharge Plan: Home - Code Status/Comfort Care Code Status: Full Code Critical Care: No Time Spent Managing PTS Care (In Minutes): 35
[2023-09-04] MEDS ORDERED: GLUCAGON 1 MG/VIAL IM PRN (10:15)
[2023-09-04] MEDS ORDERED: D50W 25 GM/50 ML SYRINGE IV PRN (10:15)
--- NOTE | 2023-09-04 10:15 | P.PN ---
Subjective Date of Service: 09/04/23 Chief Complaint: Stroke Pt is very frail. He vomited last night. It is getting better. Pt agreed to take his meds with applesauce. Will continue high dose of scheduled zofran in order to control the nausea. He still has right sided weakness. No growth on blood culture. No other complaints. Review of Systems General: Unremarkable Eyes: Unremarkable ENT: Unremarkable Respiratory: Unremarkable Cardiovascular: Unremarkable Gastrointestinal: Unremarkable Genitourinary: Unremarkable Musculoskeletal: Unremarkable Integumentary: Unremarkable Neurological: Unremarkable Lymphatics: Unremarkable Physical Examination - Vital Signs Temperature: 99.5 F Blood Pressure: 143/80 Pulse: 60 Respirations: 18 Pulse Ox (%): 99 - Physical Exam General: Alert, In no apparent distress, Oriented x3 HEENT: Atraumatic, Normocephalic, PERRLA Neck: Supple, 2+ carotid pulse no bruit Respiratory: Clear to auscultation bilaterally, Normal air movement Cardiovascular: No edema, Normal pulses, Regular rate/rhythm, Normal S1 S2 Capillary refill: <2 Seconds Gastrointestinal: Normal bowel sounds, Soft and benign, Non-distended Musculoskeletal: No clubbing, No swelling Integumentary: No rashes, No breakdown Neurological: Normal gait, Normal speech, Normal strength at 5/5 x4 extr Lymphatics: No axilla or inguinal lymphadenopathy Assessment And Plan - Plan Subacute cerebellar ischemic stroke: CT head shows subacute infarct in the right cerebrum. Will continue aspirin and atorvastatin. Consulted Neurology, [employer]ANDER, PT/OT. Will continue neurochecks. Intractable nausea and vomiting: Due to CVA. Will give zofran 8mg iv TID. If uncontrolled, Will add baclofen per Neurology recommendation. Take meds with applesauce Frequent falls: Likely due to CVA. Will continue fall precaution. Hypertensive urgency: Will resume BP med.. Tobacco use: Pt was advised to quit smoking. Will give nicotine patch. Nausea and vomiting: Will give antiemetic, like reglan. KUB is unremarkable. Hypokalemia: K is 3.9<- 3.5<- 3.3. Will replete and monitor. Hypomagnesemia: Mag is 1.7. Will replete and monitor. Chest pain: Will r/o ACS. Likely due to elevated BP. Trend troponin. Will continue telemetry DM II: Continue accuchek, SSI, lantus 18u daily, lispro 6u TID with meal, and ADA diet Code: full DVT ppx: SCD Disposition: Pt will need acute inpatient rehab placement.
[2023-09-04] MEDS: INSULIN LISPRO 100 UNIT/ML SQ SCH (12:00)
[2023-09-04] MEDS: CHLORPROMAZINE 25 MG TAB PO ONE (19:00)
[2023-09-04] MEDS: BACLOFEN 10 MG TAB PO SCH (20:17)
[2023-09-04] MEDS: ZOLPIDEM TARTRATE 5 MG TABLET PO PRN (23:43)
--- NOTE | 2023-09-05 07:04 | P.DS ---
Admission Date: 08/30/23 Discharge Date: 09/05/23 Reason for Admission: Stroke Brief History of Present Illness: 48-year-old male with a past medical history of uncontrolled hypertension, uncontrolled diabetes, tobacco use, presented to the emergency room for generalized weakness, chest pain. is primary historian reports has been experiencing nausea, vomiting, generalized weakness, falls over the past 3 weeks. Reports patient has been seen in the emergency room last couple weeks for elevated blood pressure, diabetes type 2. ER evaluation patient's blood pressure was 173/150, EMS reported excessive hypertensive with systolic greater than 250. Patient was given sublingual nitroglycerin for chest pain, hypertension by EMS. Treated with metoprolol IV 5 mg IV x 1. Patient reported recently taken Jardiance, glyburide for hyperglycemia. Clonidine 0.2 twice hyacinth ly for hypertension. reports her has had reports multiple falls, inability to stand, inability to tolerate p.o. Patient's blood sugar on ER evaluation was 320, elevated BNP 231, urine 4+ glucosuria, troponin was normal. Chest x-ray no acute abnormality, urine drug screen was negative, CT of the head showed subacute stroke, plan to admit for Subacute cerebellar ischemic stroke, intractable nausea and vomiting,uncontrolled diabetes mellitus type II, Ischemic CVA falls, hypertensive emergency, with Dr. Gomez to consult for neurology. - Physical Exam General: Alert, In no apparent distress, Oriented x3 HEENT: Atraumatic, Normocephalic, PERRLA Neck: Supple, 2+ carotid pulse no bruit Respiratory: Clear to auscultation bilaterally, Normal air movement Cardiovascular: No edema, Normal pulses, Regular rate/rhythm, Normal S1 S2 Capillary refill: <2 Seconds Gastrointestinal: Normal bowel sounds, Soft and benign, Non-distended Musculoskeletal: No clubbing, No swelling Integumentary: No rashes, No breakdown Neurological: Normal gait, Normal speech, Normal strength at 5/5 x4 extr Lymphatics: No axilla or inguinal lymphadenopathy Hospital Course: 48 year-old male patient presented with uncontrolled hypertension, strokelike symptoms. Was noted to have Subacute cerebellar ischemic stroke, uncontrolled hyperglycemia. Condition improved with blood pressure control, PT eval. Patient tolerating diet, stable for discharge to home with follow-up appointment with primary care physician, follow-up with neurology. PROBLEM: Subacute cerebellar ischemic stroke Headache Frequent falls Impaired mobility secondary to CVA Hyperglycemia secondary uncontrolled diabetes hemoglobin A1c 11.7 intractable nausea and vomiting preference is home health with PT/OT; however, in the event SS is unable to locate an agency that accepts his insurance and services our area patient is agreeable to Outpatient PT/OT as a backup option. Inpatient dietitian consulted to educate patient on cardiac, low-sodium, diabetic diet Started on long-acting insulin, immediate acting insulin 3 times daily with meals Nursing Instructed patient to keep BP/blood glucose log, educated on Accu-Chek, insulin injection/hypoglycemia Continue home medicines as prescribed GOAL: Clear understanding of disease process INSTRUCTIONS: Physician Discharge Instructions: -Follow-up with PCP in 1 to 2 weeks -Please call if any questions regarding hospital stay -Please call nursing station at [phone] if any nursing or medication questions -Return to the emergency room if symptoms worsen Diet: ADA, low sodium Activity: Fall precautions <Martha Jones - Last Filed: 09/05/23 13:15> Admission Date: 08/30/23 Discharge Date: 09/05/23 Hospital Course: Pt seen and examined. I agree with the note by the CLIENT SERVICES COORDINATOR. Pt is was admitted for subacute right cerebellar ischemic stroke. He has intractable nausea and vomiting due to the stroke. He was started on scheduled high dose zofran and baclofen. The nausea and vomiting improved. Pt could not afford inpatient rehab. He was discharged home with a rolling walker. Pt was advised to be compliant with home meds as prescribed and follow up with PCP and neurology. Ok to discharge pt. <Jt Seay - Last Filed: 09/05/23 17:04> Disposition: NE HOME/HOME HEALTH CARE Discharge Condition: FAIR Vital Signs/Physical Exam: Temp Pulse Resp BP Pulse Ox 99.3 F 69 18 140/75 99 09/05/23 04:00 09/05/23 04:00 09/05/23 04:00 09/05/23 04:00 09/05/23 04:00 Laboratory Data at Discharge: WBC 6.20 thou/uL (4.3-10.9) 09/04/23 03:29 Hgb 11.9 g/dL (13.6-17.9) L 09/04/23 03:29 Hct 33.9 % (39.6-49.0) L 09/04/23 03:29 Plt Count 174 thou/uL (152-406) 09/04/23 03:29 PT 11.0 SECONDS (9.5-12.5) 08/29/23 21:25 INR 1.00 08/29/23 21:25 Sodium 140 mEq/L (136-145) 09/04/23 03:29 Potassium 3.9 mEq/L (3.5-5.1) 09/04/23 03:29 BUN 11 mg/dL (7-18) 09/04/23 03:29 Creatinine 1.12 mg/dL (0.70-1.30) 09/04/23 03:29 Glucose 277 mg/dL (74-106) H 09/04/23 03:29 Phosphorus Cancelled 09/05/23 06:06 Magnesium 1.7 mg/dL (1.6-2.4) 09/04/23 03:29 Total Bilirubin 0.7 mg/dL (0.2-1.0) 08/29/23 21:25 AST 11 U/L (15-37) L 08/29/23 21:25 ALT 17 U/L (16-61) 08/29/23 21:25 Alkaline Phosphatase 83 U/L (45-117) 08/29/23 21:25 Triglycerides 55 mg/dL (<150) 08/30/23 05:40 Cholesterol 232 mg/dL (<200) H 08/30/23 05:40 HDL Cholesterol 56 mg/dL (40-60) 08/30/23 05:40 Cholesterol/HDL Ratio 4.14 08/30/23 05:40 Lipase 20 U/L (13-75) 08/29/23 21:25 <Martha Jones - Last Filed: 09/05/23 13:15> Vital Signs/Physical Exam: Temp Pulse Resp BP Pulse Ox 98.8 F 74 15 148/78 H 98 09/05/23 12:00 09/05/23 12:00 09/05/23 12:00 09/05/23 12:00 09/05/23 12:00 Laboratory Data at Discharge: WBC 6.20 thou/uL (4.3-10.9) 09/04/23 03:29 Hgb 11.9 g/dL (13.6-17.9) L 09/04/23 03:29 Hct 33.9 % (39.6-49.0) L 09/04/23 03:29 Plt Count 174 thou/uL (152-406) 09/04/23 03:29 PT 11.0 SECONDS (9.5-12.5) 08/29/23 21:25 INR 1.00 08/29/23 21:25 Sodium 141 mEq/L (136-145) 09/05/23 Unknown Potassium 3.6 mEq/L (3.5-5.1) 09/05/23 Unknown BUN 9 mg/dL (7-18) 09/05/23 Unknown Creatinine 1.18 mg/dL (0.70-1.30) 09/05/23 Unknown Glucose 145 mg/dL (74-106) H 09/05/23 Unknown Phosphorus Cancelled 09/05/23 06:06 Magnesium 1.8 mg/dL (1.6-2.4) 09/05/23 Unknown Total Bilirubin 0.7 mg/dL (0.2-1.0) 08/29/23 21:25 AST 11 U/L (15-37) L 08/29/23 21:25 ALT 17 U/L (16-61) 08/29/23 21:25 Alkaline Phosphatase 83 U/L (45-117) 08/29/23 21:25 Triglycerides 55 mg/dL (<150) 08/30/23 05:40 Cholesterol 232 mg/dL (<200) H 08/30/23 05:40 HDL Cholesterol 56 mg/dL (40-60) 08/30/23 05:40 Cholesterol/HDL Ratio 4.14 08/30/23 05:40 Lipase 20 U/L (13-75) 08/29/23 21:25 <Jt Seay - Last Filed: 09/05/23 17:04> Diet: ADA Activity: Fall precautions Physician Review: Patient Assessed, Agree with Above Assessment and Plan Time spent managing pt's care (in minutes): 55 <Martha Jones - Last Filed: 09/05/23 13:15> <Jt Seay - Last Filed: 09/05/23 17:04> Home Medications: Empagliflozin [Jardiance] 25 mg PO DAILY 08/30/23 glyBURIDE [Glyburide] 5 mg PO BID 08/30/23 Amlodipine [Norvasc*] 5 mg PO BID 30 Days #60 tab 09/05/23 Aspirin [Aspirin EC 81 MG] 81 mg PO DAILY 30 Days #30 mg 09/05/23 Atorvastatin Calcium [Lipitor] 80 mg PO BEDTIME 30 Days #30 tab 09/05/23 Baclofen [Lioresal*] 10 mg PO BID 30 Days #60 tab 09/05/23 Blood Pressure Test Kit-Wrist [Blood Pressure Monitor] 1 each BID #1 kit 09/05/23 Blood Sugar Diagnostic [Blood Glucose Test Strip] 1 each ACHS #1 strip 09/05/23 Blood-Glucose Meter [Blood Glucose Meter] 1 each ACHS #1 ea 09/05/23 Blood-Glucose Meter [Blood Glucose Monitoring] 1 each [facility] #1 kit 09/05/23 Clopidogrel Bisulfate [Plavix*] 75 mg PO DAILY 30 Days #30 mg 09/05/23 Insulin Glargine,Hum.rec.anlog [Semglee] 20 unit SQ DAILY 30 Days #100 ml 09/05/23 Insulin Lispro [Humalog*] 6 unit SQ TIDWM 30 Days #100 ml 09/05/23 Nicotine [Nicoderm*] 7 mg TD DAILY 30 Days #30 mg 09/05/23 Ondansetron [Zofran] 4 mg PO Q6H PRN 30 Days #30 tab 09/05/23 cloNIDine HCL [Clonidine HCl] 0.2 mg PO DAILY PRN 30 Days #30 mg 09/05/23 New Medications: Aspirin [Aspirin EC 81 MG] 81 mg PO DAILY 30 Days #30 mg Blood-Glucose Meter [Blood Glucose Meter] 1 each [facility] #1 ea Blood-Glucose Meter [Blood Glucose Monitoring] 1 each ACHS #1 kit Blood Sugar Diagnostic [Blood Glucose Test Strip] 1 each ACHS #1 strip Blood Pressure Test Kit-Wrist [Blood Pressure Monitor] 1 each BID #1 kit cloNIDine HCL [Clonidine HCl] 0.2 mg PO DAILY PRN 30 Days #30 mg PRN Reason: Titrate To Sbp (Must Define) Insulin Lispro [Humalog*] 6 unit SQ TIDWM 30 Days #100 ml Baclofen [Lioresal*] 10 mg PO BID 30 Days #60 tab Atorvastatin Calcium [Lipitor] 80 mg PO BEDTIME 30 Days #30 tab Nicotine [Nicoderm*] 7 mg TD DAILY 30 Days #30 mg Amlodipine [Norvasc*] 5 mg PO BID 30 Days #60 tab Clopidogrel Bisulfate [Plavix*] 75 mg PO DAILY 30 Days #30 mg Insulin Glargine,Hum.rec.anlog [Semglee] 20 unit SQ DAILY 30 Days #100 ml Ondansetron [Zofran] 4 mg PO Q6H PRN 30 Days #30 tab PRN Reason: Nausea / Vomiting Physician Discharge Instructions: 48 year-old male patient presented with uncontrolled hypertension, strokelike symptoms. Was noted to have Subacute cerebellar ischemic stroke, uncontrolled hyperglycemia. Condition improved with blood pressure control, PT eval. Patient tolerating diet, stable for discharge to home with follow-up appointment with primary care physician, follow-up with neurology. PROBLEM: Subacute cerebellar ischemic stroke Headache Frequent falls Impaired mobility secondary to CVA Hyperglycemia secondary uncontrolled diabetes hemoglobin A1c 11.7 intractable nausea and vomiting preference is home health with PT/OT; to be followed up on Thursday, home with melo walker Inpatient dietitian consult to educate patient on cardiac, low-sodium, diabetic diet Started on long-acting insulin, immediate acting insulin 3 times daily with meals Instructed to keep blood glucose log, educate on Accu-Chek Instructed on blood pressure log, take to PCP Continue home medicines as prescribed GOAL: Clear understanding of disease process INSTRUCTIONS: Physician Discharge Instructions: -Follow-up with PCP in 1 to 2 weeks -Please call if any questions regarding hospital stay -Please call nursing station at [phone] if any nursing or medication questions -Return to the emergency room if symptoms worsen Diet: ADA, low sodium Activity: Fall precautions Followup: Julio Gomez MD [ASSOCIATE-ACTIVE - CAN ADMIT] - Ford Rizzo DO [Primary Care Provider] -
[2023-09-05 09:36] LABS: Anion Gap 7.6 mEq/L (5.0-15.0); Magnesium 1.8 mg/dL (1.6-2.4); Potassium 3.6 mEq/L (3.5-5.1)
[2023-09-05] MEDS: INSULIN GLARGINE 100 UNIT/ML SQ SCH (10:41)
[2023-09-05 12:44] VITALS: O2SAT 100
[2023-09-05 13:14] VITALS: BP 148/78; TEMP 98.8
== END 2023-09-05 13:46 | disposition home health service (06) | DRG 65 ==
LOC: ER 21:05 → ERHOLD 08-30 04:08 → 2ND 08-30 17:41
PROVIDERS: ADMIT Hospitalist; ATTEND Hospitalist
PROC: 05HC33Z Insertion of Infusion Device into Left Basilic Vein, Percutaneous Approach (ICD-10-PCS; principal; 2023-09-02)
DX: I63.9 Cerebral infarction, unspecified (principal); I16.1 Hypertensive emergency; I10 Essential (primary) hypertension; E78.5 Hyperlipidemia, unspecified; E87.6 Hypokalemia; E83.42 Hypomagnesemia; E11.65 Type 2 diabetes mellitus with hyperglycemia; F17.210 Nicotine dependence, cigarettes, uncomplicated; R29.703 NIHSS score 3; R11.2 Nausea with vomiting, unspecified; Z79.4 Long term (current) use of insulin; Z91.81 History of falling; Z86.73 Personal history of transient ischemic attack (TIA), and cerebral infarction without residual deficits; Z79.82 Long term (current) use of aspirin; Z79.02 Long term (current) use of antithrombotics/antiplatelets; Z79.899 Other long term (current) drug therapy
CPT/HCPCS: 36415; 70450; 70496; 70498; 71045; 71260; 74018; 74177; 80048; 80061; 80076; 80307; 81001; 82077; 82947; 83036; 83690; 83735; 83880; 84100; 84132; 84439; 84443; 84484; 85025; 85610; 87040; 93005; 96372; 97112; 97116; 97161; 97530; 99285; J0360; J1650; J1815; J2270; J2405; J2550; J2765; J3475; J7030; Q0161; Q0162; Q9967

== ENCOUNTER 2023-09-07 15:05 | Inpatient (IN) | payer OTHER ==
--- OUTSIDE RECORDS SUMMARY | 2023-09-07 15:08 | XMS REPORT | Continuity of Care Document ---
Author Name Unknown Address [address] [facility] [address] [place], [place] [id number] [place] [address] thconnect Address [address] [facility] [address] [place] [address] Care Team Providers Care Financial Planning Assistant Name Role Phone CRYS HARO Attending Clinician Unavailable Payers Payer Name Policy Type Policy Number Effective Date Expirati on Date Source LIANA SMITH [employer]: O [employer] [address] 9 [id number] 2023 00:00:00 Problems Condition Name Condition Details [...] Date Source Smokes tobacco daily 2023-04-03 00:00:00 Martha Hart - External Medications Ordered Medication Name [...] MG oral Tablet 2022-06 00:00: 00 Yes [id number] 20mg Take 1 tablet (20 mg total) by mouth daily. Martha terry Metformin HCl ER 500 MG oral TABLET SR 24 HR 2022-06 00:00: 00 Yes [id number] 500mg Take 1 tablet (500 mg total) by mouth daily (with breakfast) . Martha Seybold - Externa l Sertraline HCl 25 MG oral Tablet 2022-06 00:00: 00 Yes [id number] 25mg Take 1 tablet (25 mg total) by mouth daily. Martha terry Vital Signs Vital Name Observation Time Observation Value Comments Sean charles Systolic blood pressure 2023-04-03 19:48:00 170 mm[Hg] Martha stefanie ld - External Diastolic blood pressure 2023-04-03 19:48:00 88 mm[Hg] Martha Noeo ld - External Heart rate 2023-04-03 19:48:00 88 /min Kike jorge Hart - External Body temperature 2023-04-03 19:48:00 37.06 Kasey Martha santos - External Respiratory rate 2023-04-03 19:48:00 18 /min Martha santos - External Body height 2023-04-03 19:48:00 177.8 cm Dacia gonzales Seybalfredo - External Body weight 2023-04-03 19:48:00 79.289 kg Dacia gonzales Seybold - External BMI 2023-04-03 19:48:00 25.08 kg/m2 Dacia christian Hart - External Oxygen saturation in Arterial blood by Pulse oximetry 2023-04-03 19:48:00 97 /min Martha hsieh - External Encounters Start Date/Time End Date/Time Encounter Type Admission Type Attending [facility] Care Department Encounter ID Source 2023-09-03 00:00:00 2023-09-03 00:00:00 Outpatient CRYS HARO [id number] Martha Hart 2023-04-29 00:00:00 2023-04-29 00:00:00 Outpatient CRYS HARO [id number] Martha Hart 2023-04-13 00:00:00 2023-04-13 00:00:00 Outpatient CRYS HARO [id number] Martha Hart 2023-04-03 14:30:00 2023-04-03 14:30:00 Outpatient CRYS HARO [id number] Martha Hart 2023-01-02 09:43:07 2023-01-02 09:43:07 Outpatient SFA SFA [id number] Miguel Merritt 2022-10-08 08:06:38 2022-10-08 08:06:38 Outpatient SFA SFA [id number] Miguel Merritt
[2023-09-07] MEDS ORDERED: ONDANSETRON 4 MG/2 ML VIAL ONE (15:25)
[2023-09-07] MEDS ORDERED: MORPHINE 4 MG/ML SYR ONE (15:25)
--- NOTE | 2023-09-07 15:50 | RAD REPORT ---
EXAM DESCRIPTION: CT - Abdomen Pelvis Wo Contrast - 09/07/2023 3:26 pm CLINICAL HISTORY: Abdominal pain COMPARISON: August 29, 2023 TECHNIQUE: Computed axial tomography of the abdomen and pelvis was obtained. IV and oral contrast we re not requested. All CT scans are performed using dose optimization technique as appropriate and may include automated exposure control or mA/KV adjustment according to patient size. FINDINGS: The evaluation of solid organs, vessels and bowel is limited secondary to the lack of con trast administration. The liver, spleen, pancreas, adrenals and left kidney appear grossly normal. 5 millimeter calculus right kidney. No hydronephrosis. Increased density is present within the appendix. The appendix is borderline enlarged. Small amount o f fluid surrounds the appendix. Very small amount of ascites. No evidence diverticulitis IMPRESSION: Nonobstructing right renal calculus Borderline enlargement of the appendix. Small amount of fluid surrounds the appendix. This is equivoc al for appendicitis and should be correlated clinically
--- NOTE | 2023-09-07 15:53 | RAD REPORT ---
EXAM DESCRIPTION: CT - Head Brain Wo Cont - 09/07/2023 3:26 pm CLINICAL HISTORY: Dizziness COMPARISON: August 30, 2023 TECHNIQUE: Computed axial tomography of the head was obtained. IV contrast was not requested. All CT scans are performed using dose optimization technique as appropriate and may include automated exposure control or mA/KV adjustment according to patient size. FINDINGS: The ventricles are normal in caliber No extra-axial fluid collection is noted. 5.1 centimeter low-density area right cerebellum compatible with a subacute infarction. No bleed Fluid within the sinuses/ mastoids is not seen. IMPRESSION: Moderate to large subacute right cerebellar infarction
[2023-09-07 15:55] LABS: Absolute Basophils 0.1 K/uL (0-0.5); Absolute Eosinophils 0.1 K/uL (0-0.5); Absolute Monocytes 0.7 K/uL (0.1-1.3); Basophils % 0.7 % (0-1.3); Eosinophils % 0.9 % (0-4.4); Hematocrit 37.1 % (39.6-49.0); Hemoglobin 12.6 g/dL (13.6-17.9); Lymphocytes % 20.3 % (15.3-44.8); MCH 28.4 pg (27.0-35.0); MCHC 33.9 g/dL (32.0-36.0); MCV 83.8 fL (80-100); MPV 8.1 fL (7.6-11.3); Monocytes % 6.8 % (3.3-12.3); Neutrophils % 71.3 % (41.7-73.7); Platelets 222 thou/uL (152-406); RBC Red Blood Cell Count 4.42 M/uL (4.33-5.43); Red Cell Distribution Width 12.9 % (12.1-15.2)
[2023-09-07 15:59] LABS: PT Prothrombin Time 12.1 SECONDS (9.5-12.5); Protime INR 1.1
[2023-09-07 16:11] LABS: Anion Gap 6.7 mEq/L (5.0-15.0); Potassium 3.7 mEq/L (3.5-5.1); Troponin High Sensitivity 23.9 pg/mL (<58.9)
[2023-09-07] MEDS ORDERED: PROMETHAZINE INJ 25 MG/ML AMP ONE (16:11)
--- NOTE | 2023-09-07 16:54 | ER ---
Nurse's Notes [facility] Name: Almas Chavez Age: 48 yrs Sex: Male : 1975 Arrival Date: 09/07/2023 Time: 15:05 Bed 3 Private MD: Diagnosis: Acute appendicitis with localized peritonitis;Nausea with vomiting, unspecified;Abdominal pain, unspecified;Anorexia;Essential (primary) hypertension Presentation: 09/06 15:09 Onset of symptoms was August 2023. aa5 15:09 Chief complaint: Chief complaint: Patient states: nausea, vomiting, generalized aa5 weakness, back pain, and SOB. Pt states "I was just in the hospital with a stroke last week". 15:09 Coronavirus screen: vomiting. Ebola Screen: Patient denies travel to an Ebola-affected [facility] area in the 21 days before illness onset. Initial Sepsis Screen: Does the patient meet any 2 criteria? No. Patient's initial sepsis screen is negative. Does the patient have a suspected source of infection? No. Patient's initial sepsis screen is negative. Risk Assessment: Do you want to hurt yourself or someone else? Patient reports no desire to harm self or others. 15:09 Acuity: JOANNE 3 aa5 15:09 Method Of Arrival: Wheelchair aa5 Triage Assessment: 15:44 General: Appears distressed, Behavior is cooperative, appropriate for age, anxious. bp Pain: Complains of pain in head. Neuro: Level of Consciousness is awake, alert, obeys commands, Oriented to Appropriate for age Animal Cruelty Investigation Supervisor are weak on right FROM PREVIOUS CVA. Historical: - Allergies: 15: No Known Allergies; aa5 - PMHx: 15:09 Diabetes - NIDDM; Hypertension; CVA (Unknown); aa5 15:09 CVA cerebellar; aa5 15:10 Right sided-weakness and balance issue due to CVA; aa5 - Immunization history:: Adult Immunizations unknown. - Social history:: Smoking status: Patient reports the use of cigarette tobacco products. Screenin:45 [facility] ED Fall Risk Assessment (Adult) History of falling in the last 3 months, bp including since admission No falls in past 3 months (0 pts) Confusion or Disorientation No (0 pts) Intoxicated or Sedated No (0 pts) Impaired Gait Yes (1 pt) Mobility Assist Device Used Yes (1 pt) Altered Elimination No (0 pt) Score/Fall Risk Level 0 - 2 = Low Risk Oriented to surroundings. Abuse screen: Denies threats or abuse. Denies injuries from another. Nutritional screening: No deficits noted. Tuberculosis screening: No symptoms or risk factors identified. Assessment: 15:45 General: SEE TRIAGE NOTE. bp 16:22 Reassessment: No changes from previously documented assessment. Patient is alert, bp oriented x 3, equal unlabored respirations, skin warm/dry/pink. Cardiovascular: Rhythm is sinus rhythm. Respiratory: Airway is patent Respiratory effort is even, unlabored, Breath sounds are coarse bilaterally. 17:30 Reassessment: No changes from previously documented assessment. Patient is alert, bp oriented x 3, equal unlabored respirations, skin warm/dry/pink. 18:27 Reassessment: REPORT FAXED, DAPHNIE ON 4TH CONTACTED. bp 18:30 Reassessment: Patient is alert, oriented x 3, equal unlabored respirations, skin bp warm/dry/pink. Patient states symptoms have improved. Vital Signs: 15:09 BP 118 / 66; Pulse 63; Resp 18 S; Temp 97.8(TE); Pulse Ox 100% on R/A; aa5 16:22 BP 143 / 79; Pulse 56; Resp 11; Pulse Ox 97% ; Weight 92 kg; Height 5 ft. 9 in. ; bp 16:41 BP 129 / 100; Pulse 55; Resp 15; Pulse Ox 98% ; ko1 17:30 BP 138 / 79; Pulse 51; Resp 18; Pulse Ox 99% ; bp 18:30 BP 145 / 79; Pulse 51; Resp 22; Pulse Ox 99% ; bp 16:22 Body Mass Index 29.95 (92.00 kg, 175.26 cm) bp ED Course: 15:07 Patient arrived in ED. mg5 15:09 Primo Ang DO is Attending Physician. ms3 15:09 Arm band placed on. aa5 15:12 Triage completed. aa5 15:26 CT Head Brain wo Cont In Process Unspecified. EDMS 15:28 CT Abd/Pelvis - Without Contrast In Process Unspecified. EDMS 15:28 Patrick Bryant, RN is Primary Nurse. bp 15:42 Basic Metabolic Panel Sent. ko1 15:42 CBC with Diff Sent. ko1 15:42 High Sensitivity Troponin Sent. ko1 15:42 Protime (+inr) Sent. ko1 15:42 Ptt, Activated Sent. ko1 15:44 Inserted saline lock: 22 gauge in right antecubital area, using aseptic technique. bp Blood collected. 15:45 Patient has correct armband on for positive identification. bp 16:41 Provided Education on: na. Client placed on continuous cardiac and pulse oximetry ko1 monitoring. NIBP monitoring applied. central sterile tech on. Door closed. Noise minimized. Lights dimmed. Warm blanket given. Pillow given. Head of bed elevated. 16:41 No provider procedures requiring assistance completed. ko1 16:47 CXR XRAY In Process Unspecified. EDMS 16:53 Jt Seay MD is Hospitalizing Provider. ms3 18:52 Patient admitted, IV remains in place. bp Administered Medications: 15:42 Drug: Ondansetron IVP 4 mg IVP once; over 2 minutes Route: IVP; Site: right antecubital;ko1 16:14 Follow up: Response: No adverse reaction bp 15:42 Drug: morphine IVP or IV 4 mg IVP once over 4 mins Route: IVP; Infused Over: 4 mins; ko1 Site: right antecubital; 16:14 Follow up: Response: No adverse reaction bp 16:14 Drug: Promethazine IM 25 mg IM once Route: IM; Site: right deltoid; bp 18:59 Follow up: Response: No adverse reaction cm10 17:27 Drug: NS 0.9% IV 1000 ml IV at 125 ml/hr continuous Route: IV; Rate: 125 ml/hr; Site: bp right antecubital; 18:59 Follow up: Response: No adverse reaction; IV Status: Infusion continued upon admission cm10 17:28 Drug: Piperacillin-Tazobactam IVPB 3.375 grams IVPB once over 60 mins; (mix in NS 100 bp mL) Route: IVPB; Infused Over: 60 mins; Site: right antecubital; 18:59 Follow up: Response: No adverse reaction; IV Status: Completed infusion; IV Intake: cm10 100ml Medication: 16:41 VIS not applicable for this client. ko1 Intake: 18:59 IV: 100ml; Total: 100ml. cm10 Outcome: 16:53 Decision to Hospitalize by Provider. ms3 18:51 Admitted to Med/surg accompanied by tech, family with patient, via stretcher, Report bp called to FAXED AT 1827 18:51 Condition: stable 18:51 Instructed on the need for admit, 18:59 Patient left the ED. cm10 Signatures: Dispatcher [employer] EDMS Sravani Gonzalez, RN RN aa5 Patrick Bryant RN RN bp Primo Ang, DO ms3 Celsa Wu RN RN ko1 Yee Rueda RN RN cm10 Janneth Prather 5 Corrections: (The following items were deleted from the chart) 15:10 15:09 PSHx: CVA cerebellar; aa5 aa5 15:12 15:09 Chief complaint: aa5 aa5 17:41 16:22 BP 143 / 79; Pulse 56bpm; Resp 11bpm; Pulse Ox 97%; bp bp
--- NOTE | 2023-09-07 16:54 | EDPHYS ---
Physician Documentation [facility] Name: Almas Chavez Age: 48 yrs Sex: Male : 1975 Arrival Date: 09/07/2023 Time: 15:05 Bed 3 Private MD: ED Physician Primo Ang HPI: 09/06 15:41 This 48 yrs old Black Male presents to ER via Wheelchair with complaints of Breathing ms3 Difficulty, Back Pain, Vomiting. 15:41 48-year-old male with past medical history of diabetes, hypertension, CVA presents [facility] emergency department for stroke symptoms not improving. Patient states he was discharged 2 days ago and is still feeling nauseated, vomiting, and having weakness. Patient also notes he has low back pain and a decreased appetite. Patient rates the pain a 10/10. Patient denies any alleviating or inciting factors. Historical: - Allergies: 15:09 No Known Allergies; aa5 - PMHx: 15:09 Diabetes - NIDDM; Hypertension; CVA (Unknown); aa5 15:09 CVA cerebellar; aa5 15:10 Right sided-weakness and balance issue due to CVA; aa5 - Immunization history:: Adult Immunizations unknown. - Social history:: Smoking status: Patient reports the use of cigarette tobacco products. ROS: 15:41 Constitutional: Negative for fever, and chills. Neck: Negative for injury, pain, and ms3 swelling, Cardiovascular: Negative for chest pain, and palpitations. Respiratory: Negative for shortness of breath, cough, wheezing, and pleuritic chest pain, MS/Extremity: Negative for injury and deformity, Skin: Negative for injury, rash, and discoloration, 15:41 Neuro: Positive for dizziness, headache, weakness, Exam: 15:41 Constitutional: This is a well developed, well nourished patient who is awake, alert, ms3 and in no acute distress. Head/Face: Normocephalic, atraumatic. Neck: Trachea midline, no cervical lymphadenopathy. Supple, full range of motion without nuchal rigidity, or vertebral point tenderness. No Meningismus. Chest/axilla: Normal chest wall appearance and motion. Nontender with no deformity. Cardiovascular: Regular rate and rhythm with a normal S1 and S2. No gallops, murmurs, or rubs. Normal PMI, no JVD. No pulse deficits. Respiratory: Lungs have equal breath sounds bilaterally, clear to auscultation and percussion. No rales, rhonchi or wheezes noted. No increased work of breathing, no retractions or nasal flaring. Skin: Warm, dry with normal turgor. Normal color with no rashes, no lesions, and no evidence of cellulitis. MS/ Extremity: Pulses equal, no cyanosis. Neurovascular intact. Full, normal range of motion. 15:41 Abdomen/GI: Inspection: abdomen appears normal, Bowel sounds: normal, Palpation: ms3 moderate abdominal tenderness, in the right lower quadrant, 17:06 ECG was reviewed by the Attending Physician. ms3 Vital Signs: 15:09 BP 118 / 66; Pulse 63; Resp 18 S; Temp 97.8(TE); Pulse Ox 100% on R/A; aa5 16:22 BP 143 / 79; Pulse 56; Resp 11; Pulse Ox 97% ; Weight 92 kg; Height 5 ft. 9 in. ; bp 16:41 BP 129 / 100; Pulse 55; Resp 15; Pulse Ox 98% ; ko1 17:30 BP 138 / 79; Pulse 51; Resp 18; Pulse Ox 99% ; bp 18:30 BP 145 / 79; Pulse 51; Resp 22; Pulse Ox 99% ; bp 16:22 Body Mass Index 29.95 (92.00 kg, 175.26 cm) bp MDM: 15:19 Patient medically screened. ms3 15:41 Differential diagnosis: Anemia pneumonia, ICH vs Kidney stones vs UTI. ms3 17:06 Data reviewed: vital signs, nurses notes, lab test result(s), EKG, radiologic studies, ms3 CT scan, and as a result, I will admit patient. Consideration of Admission/Observation Patient was admitted/placed on observation. Management of patient was discussed with the following: Hospitalist: Dr Seay. Business Director: Dr Lindo. I considered the following discharge prescriptions or medication management in the emergency department Medications were administered in the Emergency Department. See MAR. Historians other than the Patient: Spouse/Significant Other: Patient's . Care significantly affected by the following chronic conditions: Diabetes, Hypertension, CVA. Counseling: I had a detailed discussion with the patient and/or guardian regarding the historical points, exam findings, and any diagnostic results supporting the discharge/admit diagnosis, lab results, radiology results, the need for further work-up and treatment in the hospital. ED course: Discussed case with Dr. Lindo and he recommends IV fluids and Zosyn. Would like patient admitted to the hospitalist service. Discussed plan for admission with patient and his and they understand and agree with plan. 09/06 15:18 Order name: Basic Metabolic Panel; Complete Time: 16:52 ms3 09/06 15:18 Order name: CBC with Diff; Complete Time: 16:04 ms3 09/06 15:18 Order name: High Sensitivity Troponin; Complete Time: 16:52 ms3 09/06 15:18 Order name: Protime (+inr); Complete Time: 16:04 ms3 09/06 15:18 Order name: Ptt, Activated; Complete Time: 16:04 ms3 09/06 15:18 Order name: Urinalysis w/ reflexes ms3 09/06 18:18 Order name: CBC with Automated Diff EDMS 09/06 18:18 Order name: CBC with Automated Diff EDMS 09/06 18:18 Order name: CBC with Automated Diff EDMS 09/06 18:19 Order name: CBC with Automated Diff EDMS 09/06 18:19 Order name: Comprehensive Metabolic Panel EDMS 09/06 18:19 Order name: Comprehensive Metabolic Panel EDMS 09/06 18:19 Order name: Comprehensive Metabolic Panel EDMS 09/06 18:19 Order name: Comprehensive Metabolic Panel EDMS 09/06 18:19 Order name: Magnesium EDMS 09/06 18:19 Order name: Magnesium EDMS 09/06 15:18 Order name: CT Head Brain wo Cont; Complete Time: 16:04 ms3 09/06 15:18 Order name: CT Abd/Pelvis - Without Contrast; Complete Time: 16:04 ms3 09/06 16:04 Order name: CXR XRAY; Complete Time: 17:11 ms3 09/06 15:18 Order name: EKG; Complete Time: 15:18 ms3 09/06 18:18 Order name: CONS Physician Consult MS 09/06 18:19 Order name: Patient Safety Orders EDMS 09/06 15:18 Order name: Accucheck; Complete Time: 15:42 ms3 09/06 15:18 Order name: Cardiac monitoring; Complete Time: 15:23 ms3 09/06 15:18 Order name: EKG - Nurse/Tech; Complete Time: 15:42 ms3 09/06 15:18 Order name: IV Saline Lock; Complete Time: 15:42 ms3 09/06 15:18 Order name: Labs collected and sent; Complete Time: 15:42 ms3 09/06 15:18 Order name: NPO; Complete Time: 15:26 ms3 09/06 15:18 Order name: O2 Per Protocol; Complete Time: 15:23 ms3 09/06 15:18 Order name: O2 Sat Monitoring; Complete Time: 15:23 ms3 09/06 15:18 Order name: Stroke Swallow Screen; Complete Time: 15:43 ms3 EC:06 Rate is 52 beats/min. Rhythm is regular. QRS [place] is Normal. RI interval is normal. QRS ms3 interval is normal. T waves are Inverted in leads V4, V5, V6. Clinical impression: NSR w/ Non-specific ST/T Changes. Interpreted by me. Reviewed by me. Administered Medications: 15:42 Drug: Ondansetron IVP 4 mg IVP once; over 2 minutes Route: IVP; Site: right antecubital;ko1 16:14 Follow up: Response: No adverse reaction bp 15:42 Drug: morphine IVP or IV 4 mg IVP once over 4 mins Route: IVP; Infused Over: 4 mins; ko1 Site: right antecubital; 16:14 Follow up: Response: No adverse reaction bp 16:14 Drug: Promethazine IM 25 mg IM once Route: IM; Site: right deltoid; bp 18:59 Follow up: Response: No adverse reaction cm10 17:27 Drug: NS 0.9% IV 1000 ml IV at 125 ml/hr continuous Route: IV; Rate: 125 ml/hr; Site: bp right antecubital; 18:59 Follow up: Response: No adverse reaction; IV Status: Infusion continued upon admission cm10 17:28 Drug: Piperacillin-Tazobactam IVPB 3.375 grams IVPB once over 60 mins; (mix in NS 100 bp mL) Route: IVPB; Infused Over: 60 mins; Site: right antecubital; 18:59 Follow up: Response: No adverse reaction; IV Status: Completed infusion; IV Intake: cm10 100ml Disposition Summary: 09/07/23 16:53 Hospitalization Ordered Notes: Hospitalization Status: Observation ms3 Provider: Jt Seay ms3 Location: Telemetry/MedSurg (observation) ms3 Condition: Stable ms3 Problem: new ms3 Symptoms: are unchanged ms3 Bed/Room Type: Standard ms3 Room Assignment: 403(09/07/23 18:22) hb Diagnosis - Acute appendicitis with localized peritonitis ms3 - Nausea with vomiting, unspecified ms3 - Abdominal pain, unspecified ms3 - Anorexia ms3 - Essential (primary) hypertension ms3 Forms: - Medication Reconciliation Form ms3 - SBAR form ms3 - Leadership Thank You Letter ms3 Signatures: Dispatcher [employer] EDMS Sravani Gonzalez RN RN aa5 Joi Salgado RN RN Patrick Maciel RN RN bp Primo Ang, DO ms3 Celsa Wu RN RN koYee Williamson RN cm10 Corrections: (The following items were deleted from the chart) 15:10 15:09 PSHx: CVA cerebellar; aa5 aa5 16:59 15:41 Constitutional: This is a well developed, well nourished patient who is awake, ms3 alert, and in no acute distress. Head/Face: Normocephalic, atraumatic. Neck: Trachea midline, no cervical lymphadenopathy. Supple, full range of motion without nuchal rigidity, or vertebral point tenderness. No Meningismus. Chest/axilla: Normal chest wall appearance and motion. Nontender with no deformity. Cardiovascular: Regular rate and rhythm with a normal S1 and S2. No gallops, murmurs, or rubs. Normal PMI, no JVD. No pulse deficits. Respiratory: Lungs have equal breath sounds bilaterally, clear to auscultation and percussion. No rales, rhonchi or wheezes noted. No increased work of breathing, no retractions or nasal flaring. Abdomen/GI: Soft, non-tender, with normal bowel sounds. No distension or tympany. No guarding or rebound. No evidence of tenderness throughout. Skin: Warm, dry with normal turgor. Normal color with no rashes, no lesions, and no evidence of cellulitis. MS/ Extremity: Pulses equal, no cyanosis. Neurovascular intact. Full, normal range of motion. ms3 18:22 16:53 ms3 hb
--- NOTE | 2023-09-07 17:05 | RAD REPORT ---
EXAM DESCRIPTION: Monica Single View09/07/2023 4:45 pm CLINICAL HISTORY: sob COMPARISON: August 29, 2023 FINDINGS: The lungs appear clear of acute infiltrate. The heart is normal size IMPRESSION: No acute abnormalities displayed
[2023-09-07] MEDS ORDERED: PIPERACIL/TAZO 3.375 GM VIAL IV ONE (17:21)
[2023-09-07] MEDS ORDERED: NA CHLORIDE 0.9% 1,000 ML ONE (17:21)
[2023-09-07] MEDS ORDERED: NA CHLORIDE 0.9% 100 ML ONE (17:21)
--- NOTE | 2023-09-07 18:21 | P.HP ---
Certification for Inpatient Patient admitted to: Inpatient With expected LOS: >2 Midnights Patient will require the following post-hospital care: [facility] Practitioner: I am a practitioner with admitting privileges, knowledge of patient current condition, hospital course, and medical plan of care. Services: Services provided to patient in accordance with Admission requirements found in Title 42 Section 412.3 of the Code of Federal Regulations <Tamara Mccray - Last Filed: 09/07/23 18:51> Patient History Date of Service: 09/07/23 Reason for admission: abdominal pain, n/v, r/o appy History of Present Illness: Mr. Chavez is a 48 yo with a pmh of uncontrolled HTN, DM, tobacco abuse that recently had a major CVA. He was treated here for that and was just discharged two days ago. "It is noted that the patient's from review of the chart said he had been unable to keep food down with significant nausea and vomiting and blood sugars have been high. August 16 it appears he had a major posterior CVA. His head CT scan showed an acute stroke to a subacute stroke in the cerebellum on the right with the patient subsequently having a CT angiogram of head and neck showing no large vessel occlusion at that time. The study did also suggest the inability to see the posterior-inferior cerebral artery on the right side." Mr. Chavez returned to the ED today for similar symptoms. Dr. Gomez did consult on the past admission and is not at all surprised by the significant GI effects that are common with this type of posterior stroke. He made some suggestions on the recent admission to help control these symptoms, but it will be difficult. On CT evaluation today in the ED, equivical signs of appendicitis were documented. It was asked that the patient be admitted again for IVF and antibiotics for surgical evaluation. Dr. Lindo was consulted from the ED and will see Mr. Chavez. Home medications list reviewed: Yes - Past Medical/Surgical History Has patient received pneumonia vaccine in the past: No Diabetic: Yes -: Uncontrolled hypertension -: Uncontrolled diabetes -: Hyperlipidemia -: Hypertensive emergency -: Falls -: Acute CVA 08/2023 -: Leg surgery 2014 Psychosocial/ Personal History: Lives at home with his . 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 He had a CVA this year with right sided weakness and GI disturbance - Family History Family History: Reviewed- Non-Contributory - Social History Smoking Status: Current every day smoker Alcohol use: No CD- Drugs: No Caffeine use: Yes Place of Residence: Home <Tamara Mccray - Last Filed: 09/07/23 18:51> Date of Service: 09/07/23 <Jt Seay Ying - Last Filed: 09/07/23 22:39> Allergies No Known Allergies Allergy (Unverified 08/30/23 05:00) Home Medications: Empagliflozin [Jardiance] 25 mg PO DAILY 08/30/23 glyBURIDE [Glyburide] 5 mg PO BID 08/30/23 Amlodipine [Norvasc*] 5 mg PO BID 30 Days #60 tab 09/05/23 Aspirin [Aspirin EC 81 MG] 81 mg PO DAILY 30 Days #30 mg 09/05/23 Atorvastatin Calcium [Lipitor] 80 mg PO BEDTIME 30 Days #30 tab 09/05/23 Baclofen [Lioresal*] 10 mg PO BID 30 Days #60 tab 09/05/23 Blood Pressure Test Kit-Wrist [Blood Pressure Monitor] 1 each MC BID #1 kit 09/05/23 Blood Sugar Diagnostic [Blood Glucose Test Strip] 1 each ACHS #1 strip 09/05/23 Blood-Glucose Meter [Blood Glucose Meter] 1 each ACHS #1 ea 09/05/23 Blood-Glucose Meter [Blood Glucose Monitoring] 1 each ACHS #1 kit 09/05/23 Clopidogrel Bisulfate [Plavix*] 75 mg PO DAILY 30 Days #30 mg 09/05/23 Insulin Glargine,Hum.rec.anlog [Semglee] 20 unit SQ DAILY 30 Days #100 ml 09/05/23 Insulin Lispro [Humalog*] 6 unit SQ TIDWM 30 Days #100 ml 09/05/23 Nicotine [Nicoderm*] 7 mg TD DAILY 30 Days #30 mg 09/05/23 Ondansetron [Zofran] 8 mg PO TID 30 Days #90 tab 09/05/23 cloNIDine HCL [Clonidine HCl] 0.2 mg PO DAILY PRN 30 Days #30 mg 09/05/23 Review of Systems 10-point ROS is otherwise unremarkable General: As per HPI Eyes: Unremarkable ENT: Unremarkable Respiratory: Unremarkable Cardiovascular: Unremarkable Gastrointestinal: As per HPI Genitourinary: Unremarkable Musculoskeletal: As per HPI Integumentary: Unremarkable Neurological: As per HPI Lymphatics: Unremarkable <Tamara Mccray - Last Filed: 09/07/23 18:51> Physical Examination - Physical Exam General: Oriented x3, Other (thin, ill appearing) HEENT: Atraumatic, Normocephalic Neck: 2+ carotid pulse no bruit Respiratory: Normal air movement Cardiovascular: Regular rate/rhythm Capillary refill: <2 Seconds Gastrointestinal: Other (upper abd and right lower quad), Tenderness Musculoskeletal: Other (right sided weakness) Neurological: Normal speech, Other (right sided weakness), Abnormal tone Lymphatics: No axilla or inguinal lymphadenopathy External genitalia: Deferred Rectal: Deferred - Studies Laboratory Data (last 24 hrs) 09/07/23 09/07/23 09/07/23 15:43 15:43 15:43 WBC 9.70 Hgb 12.6 L Hct 37.1 L Plt Count 222 PT 12.1 INR 1.10 APTT 28.0 Sodium 139 Potassium 3.7 BUN 9 Creatinine 1.14 Glucose 203 H <Tamara Mccraylen - Last Filed: 09/07/23 18:51> - Studies Laboratory Data (last 24 hrs) 09/07/23 09/07/23 09/07/23 15:43 15:43 15:43 WBC 9.70 Hgb 12.6 L Hct 37.1 L Plt Count 222 PT 12.1 INR 1.10 APTT 28.0 Sodium 139 Potassium 3.7 BUN 9 Creatinine 1.14 Glucose 203 H <Jt Seay - Last Filed: 09/07/23 22:39> Assessment and Plan - Plan Subacute cerebellar ischemic stroke: CT head shows subacute infarct in the right cerebrum. Will continue aspirin and atorvastatin. Will continue neurochecks. Intractable nausea and vomiting: Due to CVA. Will give zofran iv TID. If uncontrolled, Will add baclofen per Neurology recommendation. Take meds with applesauce Frequent falls: Likely due to CVA. Will continue fall precaution. Hypertensive urgency: Will resume BP meds. Tobacco use: Pt was advised to quit smoking. Will give nicotine patch. Nausea and vomiting: Will give antiemetic, monitor electrolytes DM II: Continue accuchek, SSI, NPO for now except meds Equivical appendicitis per CT: Consult Dr. Lindo (done in ED), zosyn 3.375gm iv q12h Code: full DVT ppx: SCD Discharge Plan: LTAC - Advance Directives Does patient have a Living Will: No Does patient have a Durable POA for Healthcare: No - Code Status/Comfort Care Code Status Assessed: Yes (Full) <Tamara Mccray - Last Filed: 09/07/23 18:51> - Plan Pt seen and examined. I agree with the note by the DIESEL ENGINE I PIPE FITTER. Pt is a 48 yo male with pasy medical history of recent CVA who presents with nausea, vomiting, weakness and right back pain. Of note, pt was recently treated for CVA. At home he continued to have nausea and vomiting. He later deveoped right vack pain. On admission, imaging study is concerning for possible appendicitis. At bedside, pt is in NAD CVA: Will continue aspirin, atorvatstain and zofran 8mg iv Q6h. Possible appendicitis: Will continue iv zosyn and IVF. Will continue home med for other chronic medical problems <Jt Seay - Last Filed: 09/07/23 22:39>
[2023-09-07] MEDS ORDERED: ONDANSETRON 4 MG/2 ML VIAL IV PRN (18:24)
[2023-09-07] MEDS ORDERED: SODIUM CHLORIDE 0.9% 10ML INJ IV PRN (18:31)
[2023-09-07] MEDS: INSULIN REGULAR (HUMAN) 100 UNIT/ML SQ SCH (21:00)
[2023-09-07] MEDS: PIPER TAZO 3.375 GM in NA CHLORIDE 0.9% 100 ML IV SCH (21:00)
[2023-09-07] MEDS: BISACODYL 10 MG RECTAL SUPP PR ONE (21:17)
[2023-09-07] MEDS: BACLOFEN 10 MG TAB PO SCH (21:17)
[2023-09-07] MEDS: ATORVASTATIN 80 MG TAB PO SCH (21:17)
[2023-09-07] MEDS: MAGNESIUM CITRATE 300 ML BOT PO ONE (21:17)
[2023-09-07] MEDS: NA CHLORIDE 0.9% 1,000 ML IV SCH (21:18)
[2023-09-07] MEDS: MORPHINE 2 MG/ML SYR IV PRN (21:19)
[2023-09-07] MEDS: ONDANSETRON 4 MG/2 ML VIAL IV SCH (22:02)
[2023-09-07 23:51] VITALS: BMI 29.9
[2023-09-08] MEDS ORDERED: HEPARIN 5000 UNIT/ML 1 ML VIAL SQ SCH (01:00)
[2023-09-08 01:46] LABS: Specific Gravity 1.019 (1.005-1.030); Sqamous Epithelial None Seen /HPF (None Seen); Urine Bacteria None Seen /HPF (<20); Urine Bilirubin NEGATIVE (Negative); Urine Blood Negative (Negative); Urine Clarity Clear (Clear); Urine Color Light-Yellow (Yellow); Urine Culture Reflex Order NOT NEEDED; Urine Glucose 3+ (Negative); Urine Ketones NEGATIVE (Negative); Urine Microscopic Reflex YN ORDER UMIC; Urine Nitrite NEGATIVE (Negative); Urine Protein 2+ (Negative); Urine RBC <5 /HPF (None Seen); Urine Urobilinogen Normal (Normal); Urine WBC <5 /HPF (<5); Urine pH 6.5 (5.0-7.0)
[2023-09-08 07:39] LABS: Anion Gap 9.6 mEq/L (5.0-15.0); Potassium 3.6 mEq/L (3.5-5.1)
[2023-09-08 07:40] LABS: Albumin 2.2 g/dL (3.4-5.0); Albumin/Globulin Ratio 0.6 (1.1-1.8); Bilirubin Total 0.5 mg/dL (0.2-1.0); Globulin 3.5 g/dL (2.3-3.5); Protein, Total 5.7 g/dL (6.4-8.2)
[2023-09-08 07:57] LABS: Absolute Eosinophils 0.1 K/uL (0-0.5); Absolute Lymphocytes (CBC) 3.1 K/uL (0.7-4.9); Absolute Monocytes 0.9 K/uL (0.1-1.3); Absolute Neutrophil 5.1 K/uL (1.8-8.0); Basophils % 0.5 % (0-1.3); Eosinophils % 1.3 % (0-4.4); Hematocrit 34.5 % (39.6-49.0); Hemoglobin 11.7 g/dL (13.6-17.9); Lymphocytes % 33.2 % (15.3-44.8); MCH 28.6 pg (27.0-35.0); MCHC 33.8 g/dL (32.0-36.0); MCV 84.5 fL (80-100); MPV 8.4 fL (7.6-11.3); Platelets 215 thou/uL (152-406); RBC Red Blood Cell Count 4.08 M/uL (4.33-5.43); Red Cell Distribution Width 12.9 % (12.1-15.2)
[2023-09-08] MEDS ORDERED: D5 0.9 NS 1,000 ML IV SCH (08:00)
[2023-09-08] MEDS: D5 0.2 NS 1,000 ML IV SCH (08:40)
[2023-09-08] MEDS: AMLODIPINE 5 MG TAB PO SCH (09:22)
[2023-09-08] MEDS: PANTOPRAZOLE 40 MG INJ IVP SCH (09:22)
[2023-09-08] MEDS: ASPIRIN EC 81 MG TAB PO SCH (09:23)
[2023-09-08] MEDS: CLOPIDOGREL 75 MG TABLET PO SCH (09:23)
[2023-09-08] MEDS: cloNIDine HCL 0.1 MG TAB PO SCH (09:23)
--- NOTE | 2023-09-08 10:09 | P.PN ---
Subjective Date of Service: 09/08/23 Chief Complaint: abdominal pain, n/v, r/o appy Subjective: No new changes (pt was gasping when I entered his room. He states he thinks he stopped breathing. Tele placed, pt states he is back to normal, states he was not asleep, did not think he had a seizure. He states, "I just stopped breathing." Neurochecks q2-4h) <Tamara Mccray - Last Filed: 09/08/23 10:00> Date of Service: 09/08/23 <Jt Seay C - Last Filed: 09/08/23 22:34> Review of Systems 10-point ROS is otherwise unremarkable General: Weakness ENT: As per HPI Respiratory: As per HPI Gastrointestinal: Nausea, Vomiting, Abdominal Pain, Other (hiccoughs) Genitourinary: Other ("kidney pain") Musculoskeletal: As per HPI Neurological: As per HPI <Tamara Mccray - Last Filed: 09/08/23 10:00> Physical Examination - Vital Signs Temperature: 99.5 F Blood Pressure: 144/69 Pulse: 56 Respirations: 12 Pulse Ox (%): 98 - Physical Exam General: Alert, Oriented x3, Mild distress HEENT: Atraumatic, Normocephalic Neck: Supple Respiratory: Normal air movement Cardiovascular: Irregular heart rate/rhythm Capillary refill: <2 Seconds Gastrointestinal: Tenderness Musculoskeletal: No swelling Integumentary: No rashes Neurological: Normal speech, Abnormal strength, Abnormal tone Lymphatics: No axilla or inguinal lymphadenopathy External genitalia: Deferred Rectal: Deferred - Studies Laboratory Data (last 24 hrs) 09/07/23 09/07/23 09/07/23 15:43 15:43 15:43 WBC 9.70 Hgb 12.6 L Hct 37.1 L Plt Count 222 PT 12.1 INR 1.10 APTT 28.0 Sodium 139 Potassium 3.7 BUN 9 Creatinine 1.14 Glucose 203 H <Tamara Mccray - Last Filed: 09/08/23 10:00> Assessment And Plan - Plan Subacute cerebellar ischemic stroke: CT head shows subacute infarct in the right cerebrum. Will continue aspirin and atorvastatin. Will continue neurochecks more frequently (q2-4h) Intractable nausea and vomiting: Due to CVA. Will give zofran iv TID. If uncontrolled, Will add baclofen per Neurology recommendation. Take meds with applesauce Frequent falls: Likely due to CVA. Will continue fall precaution. Hypertensive urgency: Will resume BP meds. Tobacco use: Pt was advised to quit smoking. Will give nicotine patch. Nausea and vomiting: Will give antiemetic, monitor electrolytes DM II: Continue accuchek, SSI, NPO for now except meds Equivical appendicitis per CT: Consult Dr. Lindo (done in ED), zosyn 3.375gm iv q12h Code: full DVT ppx: SCD - Code Status/Comfort Care Code Status Assessed: Yes (Full) <Tamara Mccray - Last Filed: 09/08/23 10:00> - Plan Pt seen and examined. I agree with the note by the NETWORK SECURITY OFFICER. Contnue high dose of scheduled zofran. nurse case management is looking for placement. <Jt Seay - Last Filed: 09/08/23 22:34>
[2023-09-08] MEDS: NICOTINE 7 MG/PAT TD SCH (12:31)
--- NOTE | 2023-09-08 13:48 | P.CNS ---
Date of Consult: 09/07/23 PC: I was asked see this patient in regards to right lower quadrant abdominal pain and and rule out appendicitis. HPC: Patient was in the hospital here recently with a onset of stroke. He was brought back last night to the ER due to the fact he was having nausea vomiting and abdominal pain. CT scan suggested possible appendicitis. PMHx: Hypertension Social Hx: No known allergies Sys R: Has been having a lot of headaches and nausea at home as well as backache particularly on the right side. O/E: Awake alert uncomfortable, vital signs are stable HEENT: Not jaundiced Chest: Chest movement equal bilaterally Abd: Clinically abdomen is soft, nontender, no guarding or rebound Data: CT scan shows apparently some fluid around the appendix, there is some old barium seen from previous CT scan still in the appendix. Apparently has a small kidney stone Impression: Abdominal pain, not appendicitis Plan: Patient does not require appendectomy at this time.
[2023-09-08] MEDS: PIPER TAZO 3.375 GM in NA CHLORIDE 0.9% 100 ML IV SCH (16:19)
[2023-09-08] MEDS ORDERED: ACETAMINOPHEN 500 MG TAB PO PRN (16:57)
--- NOTE | 2023-09-08 17:04 | EKG ---
Test Date: 2023-09-07 Test Time: 14:38:24 Stave Saw Operator: CORRINE MEASUREMENT RESULTS: Intervals: Rate: 52 MS: 122 QRSD: 96 QT: 446 QTc: 414 [place]: P: 73 MS: 122 QRS: 45 T: -57 INTERPRETIVE STATEMENTS: Sinus bradycardia T wave abnormality, consider inferolateral ischemia Abnormal ECG Compared to ECG 08/29/2023 20:18:44 Sinus rhythm no longer present T-wave abnormality still present Possible ischemia still present Electronically Signed On 09-08-23 17:00:40 CDT by Law Casas
[2023-09-08] MEDS: ALPRAZOLAM 0.5 MG TABLET PO ONE (22:23)
[2023-09-09 07:03] LABS: Absolute Eosinophils 0.1 K/uL (0-0.5); Absolute Lymphocytes (CBC) 2.5 K/uL (0.7-4.9); Absolute Monocytes 0.8 K/uL (0.1-1.3); Absolute Neutrophil 5.4 K/uL (1.8-8.0); Basophils % 0.3 % (0-1.3); Eosinophils % 1.2 % (0-4.4); Hematocrit 32.9 % (39.6-49.0); Hemoglobin 11.6 g/dL (13.6-17.9); Lymphocytes % 28.3 % (15.3-44.8); MCH 29.2 pg (27.0-35.0); MCHC 35.2 g/dL (32.0-36.0); MCV 82.8 fL (80-100); MPV 7.8 fL (7.6-11.3); Monocytes % 8.5 % (3.3-12.3); Neutrophils % 61.7 % (41.7-73.7); Nucleated Red Blood Cells % 0.1 % (0-0); Platelets 235 thou/uL (152-406); RBC Red Blood Cell Count 3.97 M/uL (4.33-5.43); Red Cell Distribution Width 12.8 % (12.1-15.2)
[2023-09-09 07:24] LABS: Albumin 2.1 g/dL (3.4-5.0); Albumin/Globulin Ratio 0.6 (1.1-1.8); Anion Gap 7.6 mEq/L (5.0-15.0); Bilirubin Total 0.6 mg/dL (0.2-1.0); Globulin 3.4 g/dL (2.3-3.5); Potassium 3.6 mEq/L (3.5-5.1); Protein, Total 5.5 g/dL (6.4-8.2)
--- NOTE | 2023-09-09 17:15 | P.PN ---
Subjective Date of Service: 09/09/23 Chief Complaint: abdominal pain, n/v, r/o appy Subjective: Other (appendicitis has been ruled out. pt is more talkative but states he does not eat clear liquids and he wants eggs and sausage. No dysphagia. Given as requested. Pt vomited) Review of Systems 10-point ROS is otherwise unremarkable Gastrointestinal: Nausea, Vomiting, Abdominal Pain Neurological: As per HPI Physical Examination - Vital Signs Temperature: 97.9 F Blood Pressure: 153/73 Pulse: 54 Respirations: 17 Pulse Ox (%): 98 - Physical Exam General: Alert, Oriented x3, Cooperative HEENT: Atraumatic, Normocephalic Neck: Supple Respiratory: Normal air movement Cardiovascular: Normal pulses, Regular rate/rhythm, Abnormal S4 Capillary refill: <2 Seconds Gastrointestinal: Hypoactive Musculoskeletal: No clubbing, No swelling Integumentary: No rashes Neurological: Normal speech, Abnormal strength Lymphatics: No axilla or inguinal lymphadenopathy External genitalia: Deferred Rectal: Deferred Assessment And Plan - Plan Subacute cerebellar ischemic stroke: CT head shows subacute infarct in the right cerebrum. Will continue aspirin and atorvastatin. Will continue neurochecks more frequently (q4h), social work successfully found outpatient physical therapy - [facility], he already has a walker at home Intractable nausea and vomiting: Due to CVA. Will give zofran iv TID. If uncontrolled, added baclofen per Neurology recommendation. Take meds with applesauce Frequent falls: Likely due to CVA. Will continue fall precaution. Hypertensive urgency: Will resume BP meds. Tobacco use: Pt was advised to quit smoking. Will give nicotine patch. Nausea and vomiting: Will give antiemetic, monitor electrolytes DM II: Continue accuchek, SSI, advanced from clear liquids - pt vomited Equivical appendicitis per CT: Consult Dr. Lindo (done in ED), appendicitis ruled out Code: full DVT ppx: SCD
[2023-09-09] MEDS: ALPRAZOLAM 0.5 MG TABLET PO ONE (22:12)
[2023-09-10 05:48] LABS: Absolute Eosinophils 0.1 K/uL (0-0.5); Absolute Lymphocytes (CBC) 1.5 K/uL (0.7-4.9); Absolute Monocytes 0.7 K/uL (0.1-1.3); Absolute Neutrophil 5.2 K/uL (1.8-8.0); Basophils % 0.5 % (0-1.3); Hematocrit 32.8 % (39.6-49.0); Hemoglobin 11.3 g/dL (13.6-17.9); Lymphocytes % 19.8 % (15.3-44.8); MCH 28.5 pg (27.0-35.0); MCHC 34.6 g/dL (32.0-36.0); MCV 82.5 fL (80-100); MPV 8.1 fL (7.6-11.3); Monocytes % 9.8 % (3.3-12.3); Neutrophils % 67.9 % (41.7-73.7); Platelets 240 thou/uL (152-406); RBC Red Blood Cell Count 3.97 M/uL (4.33-5.43); Red Cell Distribution Width 12.9 % (12.1-15.2)
[2023-09-10 06:06] LABS: Albumin 2.2 g/dL (3.4-5.0); Albumin/Globulin Ratio 0.6 (1.1-1.8); Anion Gap 6.4 mEq/L (5.0-15.0); Bilirubin Total 0.4 mg/dL (0.2-1.0); Globulin 3.6 g/dL (2.3-3.5); Potassium 3.4 mEq/L (3.5-5.1); Protein, Total 5.8 g/dL (6.4-8.2)
[2023-09-10] MEDS: SCOPOLAMINE HYDROBROMIDE PATCH TD ONE (08:58)
[2023-09-10] MEDS: POTASSIUM CL SA 10 MEQ TAB PO ONE (08:59)
--- NOTE | 2023-09-10 12:07 | P.PN ---
Subjective Date of Service: 09/10/23 Chief Complaint: abdominal pain, n/v, r/o appy Subjective: Improving (+physical improvement, mobility improved, coordination improved. Still severely nauseated, still vomiting. Tried soft foods yesterday, vomited. Vomited x 2 overnight) <Tamara Mccray - Last Filed: 09/10/23 14:35> Date of Service: 09/10/23 <grady ham - Last Filed: 09/10/23 17:09> Review of Systems 10-point ROS is otherwise unremarkable Gastrointestinal: Nausea (persistent), Vomiting Neurological: Numbness (to left arm, however, movement and coordination have improved a great deal.) <Tamara Mccray - Last Filed: 09/10/23 14:35> Physical Examination - Vital Signs Temperature: 98.6 F Blood Pressure: 197/88 Pulse: 62 Respirations: 16 Pulse Ox (%): 100 - Physical Exam General: Alert, Oriented x3, Mild distress HEENT: Atraumatic, Normocephalic Neck: Supple Respiratory: Normal air movement Cardiovascular: Normal pulses Capillary refill: <2 Seconds Gastrointestinal: Soft and benign, Other (severe n/v) Musculoskeletal: No clubbing Integumentary: No rashes Neurological: Normal speech, Other (left upper arm numbness, but left upper and lower extremity ROM and coordination has improved dramatically from mid August) Lymphatics: No axilla or inguinal lymphadenopathy External genitalia: Deferred Rectal: Deferred <Tamara Mccray - Last Filed: 09/10/23 14:35> Assessment And Plan - Plan Subacute cerebellar ischemic stroke: CT head shows subacute infarct in the right cerebrum. Will continue aspirin and atorvastatin. Will continue neurochecks more frequently (q4h), social work successfully found outpatient physical therapy - [facility], he already has a walker at home. Strength and coordination has improved dramatically to left upper and lower extremities. Intractable nausea and vomiting: Due to CVA. Will give zofran iv TID. If uncontrolled, added baclofen per Neurology recommendation. Take meds with applesauce Frequent falls: Likely due to CVA. Will continue fall precaution. Hypertensive urgency: Will resume BP meds. Tobacco use: Pt was advised to quit smoking. Will give nicotine patch. Nausea and vomiting: Will give antiemetic, monitor electrolytes DM II: Continue accuchek, SSI, advanced from clear liquids - pt vomited. Vomited x 2 overnight, added Scopolamine patch today (), plan for dc tomorrow if pt able to tolerate po Equivical appendicitis per CT: Consult Dr. Lindo (done in ED), appendicitis ruled out Code: full DVT ppx: SCD Discharge Plan: Home Plan to discharge in: 24 Hours - Code Status/Comfort Care Code Status Assessed: Yes (full) <Tamara Mccray - Last Filed: 09/10/23 14:35> - Plan Patient seen and examined. Plan of care discussed with Ms. Mccray Cerebellar CVA related nausea and vomiting. Benign abdomen on examination. Plan: Trial of Reglan no chemoreceptor center related nausea Patient is also on baclofen Neurology Dr. Gomez recommendation. <grady ham - Last Filed: 09/10/23 17:09>
[2023-09-10] MEDS: LACTULOSE 20 GM/30 ML UCUP PO ONE (19:08)
[2023-09-10] MEDS: clonazePAM 0.5 MG TAB PO PRN (22:06)
[2023-09-11] MEDS: METOCLOPRAMIDE 10 MG/2mL INJ IV PRN (01:02)
[2023-09-11 06:13] LABS: Anion Gap 8.5 mEq/L (5.0-15.0); Potassium 3.5 mEq/L (3.5-5.1)
[2023-09-11] MEDS: POTASSIUM CL SA 10 MEQ TAB PO ONE (09:32)
--- NOTE | 2023-09-11 10:21 | P.PN ---
Subjective Date of Service: 09/11/23 Chief Complaint: abdominal pain, n/v, r/o appy Subjective: Improving (right sided weakness and incoordination improving, states back pain and N/V continue. Vomited x 2 overnight) <Tamara Mccray - Last Filed: 09/11/23 10:16> Date of Service: 09/11/23 <grady ham - Last Filed: 09/11/23 18:30> Review of Systems 10-point ROS is otherwise unremarkable General: Weakness, Malaise Gastrointestinal: Nausea, Vomiting Musculoskeletal: Back Pain Neurological: As per HPI <Tamara Mccray - Last Filed: 09/11/23 10:16> Physical Examination - Vital Signs Temperature: 98.5 F Blood Pressure: 158/78 Pulse: 58 Respirations: 18 Pulse Ox (%): 97 - Physical Exam General: Alert, In no apparent distress, Oriented x3 HEENT: Atraumatic, Normocephalic, PERRLA Neck: Supple Respiratory: Normal air movement Cardiovascular: No edema, Normal pulses, Regular rate/rhythm Capillary refill: <2 Seconds Gastrointestinal: Soft and benign Musculoskeletal: No clubbing Integumentary: No rashes Neurological: Normal speech, Other (right sided incoordination and strength improved, right arm remains with decreased sensation) Lymphatics: No axilla or inguinal lymphadenopathy External genitalia: Deferred Rectal: Deferred <Tamara Mccray - Last Filed: 09/11/23 10:16> Assessment And Plan - Plan Subacute cerebellar ischemic stroke: CT head shows subacute infarct in the right cerebrum. Will continue aspirin and atorvastatin. Will continue neurochecks more frequently (q4h), social work successfully found outpatient physical therapy - [facility], he already has a walker at home Intractable nausea and vomiting: Due to CVA. Will give zofran iv TID. If uncontrolled, added baclofen per Neurology recommendation. Take meds with applesauce. Started scopolamine patch and reglan yesterday, minimal improvement. Pt will have repeat CT abd and pelvis with contrast to re-evaluated for appendicitis Frequent falls: Likely due to CVA. Will continue fall precaution. Hypertensive urgency: Will resume BP meds. Tobacco use: Pt was advised to quit smoking. Will give nicotine patch. Nausea and vomiting: Will give antiemetic, monitor electrolytes DM II: Continue accuchek, SSI, advanced from clear liquids Equivical appendicitis per CT: Consult Dr. Lindo (done in ED), appendicitis ruled out, will re-eval with repeat CT Code: full DVT ppx: SCD <Tamara Mccray - Last Filed: 09/11/23 10:16> - Plan Patient seen and examined. Plan of care discussed with Ms. Mccray. Patient with cerebellar stroke with related nausea and vomiting. Patient stated she vomited 3 times today Nausea and vomiting frequency has improved. Continue IV Reglan, baclofen and scopolamine patch. Zofran as needed. Initial CT abdomen pelvis suggested possible appendicitis. Patient abdomen is benign on examination. Seen by general surgery Dr. Lindo who felt patient does not have acute appendicitis. Repeat CT abdomen pelvis done today shows normal appendix and a 7 mm inferior right kidney stone. Continue PT Patient will need follow-up with urology as outpatient. Advance diet as tolerated. <grady ham - Last Filed: 09/11/23 18:30>
--- NOTE | 2023-09-11 12:53 | RAD REPORT ---
EXAM DESCRIPTION: CTAbdomen Pelvis W Contrast - 09/11/2023 12:45 pm CLINICAL HISTORY: Abdominal pain. Intractable vomiting. Suspected appendicitis COMPARISON: No comparisons TECHNIQUE: Biphasic CT imaging of the abdomen and pelvis was performed with 100 ml non-ionic IV cont rast. All CT scans are performed using dose optimization technique as appropriate and may include automated exposure control or mA/KV adjustment according to patient size. FINDINGS: The lung bases are clear. The liver demonstrates diffuse fatty infiltration. Spleen, pancreas, adrenal glands and left kidney a re within normal limits. 7 mm stone inferior right kidney. No bowel obstruction, free air, free fluid or abscess. The appendix is normal. No evidence of signi ficant lymphadenopathy. No suspicious bony findings. IMPRESSION: 7 mm stone inferior right kidney. Normal appendix.
[2023-09-11] MEDS: PREGABALIN 75 MG CAP PO SCH (18:37)
[2023-09-12 05:50] LABS: Anion Gap 9.3 mEq/L (5.0-15.0); Potassium 3.3 mEq/L (3.5-5.1)
[2023-09-12] MEDS: POTASSIUM CL SA 10 MEQ TAB PO ONE (06:06)
[2023-09-12] MEDS: PROMETHAZINE INJ 25 MG/ML AMP IM ONE (08:52)
[2023-09-12] MEDS: PANTOPRAZOLE 40MG TABLET PO SCH (08:58)
[2023-09-12] MEDS: POTASSIUM CL 40 MEQ in NA CHLORIDE 0.9% 500 ML IV SCH (11:34)
--- NOTE | 2023-09-12 12:23 | P.PN ---
Subjective Date of Service: 09/12/23 Chief Complaint: abdominal pain, n/v, r/o appy Pt is resting comfortably in bed. He reports nausea and vomiting. Pt is getting Review of Systems General: Unremarkable Eyes: Unremarkable ENT: Unremarkable Respiratory: Unremarkable Cardiovascular: Unremarkable Gastrointestinal: Nausea, Vomiting Genitourinary: Unremarkable Musculoskeletal: Unremarkable Integumentary: Unremarkable Neurological: Weakness Lymphatics: Unremarkable Physical Examination - Vital Signs Temperature: 98.4 F Blood Pressure: 170/80 Pulse: 58 Respirations: 20 Pulse Ox (%): 98 - Physical Exam General: Alert, In no apparent distress, Oriented x3 HEENT: Atraumatic, Normocephalic, PERRLA Neck: Supple, 2+ carotid pulse no bruit Respiratory: Clear to auscultation bilaterally, Normal air movement Cardiovascular: No edema, Normal pulses, Regular rate/rhythm, Normal S1 S2 Capillary refill: <2 Seconds Gastrointestinal: Normal bowel sounds, Soft and benign, Non-distended Musculoskeletal: No clubbing, No swelling Integumentary: No rashes, No breakdown Neurological: Sensation intact, Abnormal strength Lymphatics: No axilla or inguinal lymphadenopathy Assessment And Plan - Plan Subacute cerebellar ischemic stroke: CT head shows subacute infarct in the right cerebrum. Will continue aspirin and atorvastatin. Will continue neurochecks more frequently (q4h), social work successfully found outpatient physical therapy - [facility], he already has a walker at home Intractable nausea and vomiting: Due to CVA. Will give zofran iv TID, baclofen and reglan per neurology recommendation. Take meds with applesauce. Pt will have repeat CT abd and pelvis with contrast to re-evaluated for appendicitis Frequent falls: Likely due to CVA. Will continue fall precaution. Hypertensive urgency: Will resume BP meds. Hypokalemia: K is 3.3 Will replete with iv KCL and monitor. Tobacco use: Pt was advised to quit smoking. Will give nicotine patch. Nausea and vomiting: Will give antiemetic, monitor electrolytes DM II: Continue accuchek, SSI, advanced from clear liquids Equivical appendicitis per CT: Consult Dr. Lindo (done in ED), appendicitis ruled out, will re-eval with repeat CT Code: full DVT ppx: SCD DIspo: Pt needs outpt rehab.
[2023-09-13 04:39] LABS: Absolute Eosinophils 0.2 K/uL (0-0.5); Absolute Lymphocytes (CBC) 2.1 K/uL (0.7-4.9); Absolute Monocytes 0.8 K/uL (0.1-1.3); Absolute Neutrophil 6.1 K/uL (1.8-8.0); Basophils % 0.5 % (0-1.3); Eosinophils % 2.1 % (0-4.4); Hematocrit 33.3 % (39.6-49.0); Hemoglobin 11.6 g/dL (13.6-17.9); Lymphocytes % 22.9 % (15.3-44.8); MCH 28.7 pg (27.0-35.0); MCHC 34.9 g/dL (32.0-36.0); MCV 82.2 fL (80-100); MPV 8.2 fL (7.6-11.3); Monocytes % 8.4 % (3.3-12.3); Neutrophils % 66.1 % (41.7-73.7); Nucleated Red Blood Cells % 0.1 % (0-0); Platelets 262 thou/uL (152-406); RBC Red Blood Cell Count 4.05 M/uL (4.33-5.43)
[2023-09-13 04:52] LABS: Anion Gap 9.5 mEq/L (5.0-15.0); Potassium 3.5 mEq/L (3.5-5.1)
[2023-09-13] MEDS: POTASSIUM CL SA 10 MEQ TAB PO ONE (05:03)
[2023-09-13] MEDS ORDERED: GLUCAGON 1 MG/VIAL IM PRN (08:02)
[2023-09-13] MEDS ORDERED: D50W 25 GM/50 ML SYRINGE IV PRN (08:02)
[2023-09-13] MEDS: INSULIN LISPRO 100 UNIT/ML SQ SCH (09:05)
--- NOTE | 2023-09-13 11:01 | P.PN ---
Subjective Date of Service: 09/13/23 Chief Complaint: abdominal pain, n/v, r/o appy Pt is resting comfortably in bed. He denies any vomiting for the past 24hrs. Pt is tolerating po intake. No other complaints. Review of Systems General: Unremarkable Eyes: Unremarkable ENT: Unremarkable Respiratory: Unremarkable Cardiovascular: Unremarkable Gastrointestinal: Nausea Genitourinary: Unremarkable Musculoskeletal: Unremarkable Integumentary: Unremarkable Neurological: Weakness Lymphatics: Unremarkable Physical Examination - Vital Signs Temperature: 98.1 F Blood Pressure: 165/83 Pulse: 72 Respirations: 18 Pulse Ox (%): 99 - Physical Exam General: Alert, In no apparent distress, Oriented x3 HEENT: Atraumatic, Normocephalic Neck: Supple, 2+ carotid pulse no bruit Respiratory: Clear to auscultation bilaterally, Normal air movement Cardiovascular: No edema, Normal pulses, Regular rate/rhythm, Normal S1 S2 Capillary refill: <2 Seconds Gastrointestinal: Normal bowel sounds, Soft and benign, Non-distended Musculoskeletal: No clubbing, No swelling Integumentary: No rashes, No breakdown Neurological: Normal speech, Normal tone, Sensation intact, Abnormal sensation (right sided weakness) Lymphatics: No axilla or inguinal lymphadenopathy Assessment And Plan - Plan Subacute cerebellar ischemic stroke: CT head shows subacute infarct in the right cerebrum. Will continue aspirin and atorvastatin. Will continue neurochecks more frequently (q4h), social work successfully found outpatient physical therapy - [facility], he already has a walker at home Intractable nausea and vomiting: Improved. Pt has not had vomiting since 09/12/23. Due to CVA. Will give zofran iv TID, baclofen and reglan per neurology recommendation. Take meds with applesauce. Pt will have repeat CT abd and pelvis with contrast to re-evaluated for appendicitis Frequent falls: Likely due to CVA. Will continue fall precaution. Hypertensive urgency: Will resume BP meds. Hypokalemia: K is 3.5 <- 3.3 Will replete with iv KCL and monitor. Tobacco use: Pt was advised to quit smoking. Will give nicotine patch. Nausea and vomiting: Will give antiemetic, monitor electrolytes DM II: Continue accuchek, SSI, advanced from clear liquids Equivical appendicitis per CT: Consult Dr. Lindo (done in ED), appendicitis ruled out, will re-eval with repeat CT Nutrition: Pt is tolerating oral intake. Code: full DVT ppx: SCD DIspo: Pt needs outpt rehab.
[2023-09-13] MEDS ORDERED: INSULIN LISPRO 100 UNIT/ML SQ SCH (11:30)
[2023-09-13] MEDS: INSULIN GLARGINE 100 UNIT/ML SQ SCH (12:00)
[2023-09-13] MEDS ORDERED: Nicardipine/NS 25 MG/250 ML KIT IV SCH (18:00)
[2023-09-14 07:35] LABS: Absolute Eosinophils 0.2 K/uL (0-0.5); Absolute Lymphocytes (CBC) 1.8 K/uL (0.7-4.9); Absolute Monocytes 0.7 K/uL (0.1-1.3); Absolute Neutrophil 6.8 K/uL (1.8-8.0); Basophils % 0.4 % (0-1.3); Eosinophils % 1.9 % (0-4.4); Hematocrit 33.3 % (39.6-49.0); Hemoglobin 11.6 g/dL (13.6-17.9); MCH 28.4 pg (27.0-35.0); MCHC 34.7 g/dL (32.0-36.0); MCV 81.9 fL (80-100); Monocytes % 7.8 % (3.3-12.3); Neutrophils % 70.9 % (41.7-73.7); Platelets 272 thou/uL (152-406); RBC Red Blood Cell Count 4.07 M/uL (4.33-5.43)
[2023-09-14 07:50] LABS: Albumin/Globulin Ratio 0.5 (1.1-1.8); Anion Gap 7.5 mEq/L (5.0-15.0); Bilirubin Total 0.4 mg/dL (0.2-1.0); Globulin 3.8 g/dL (2.3-3.5); Potassium 3.5 mEq/L (3.5-5.1); Protein, Total 5.8 g/dL (6.4-8.2)
--- NOTE | 2023-09-14 08:31 | P.PN ---
Subjective Date of Service: 09/14/23 Chief Complaint: abdominal pain, n/v, r/o appy Admitted for subacute ischemic CVA, intractable nausea vomiting, right-sided weakness, tolerating diet, No reported vomiting today Ambulating with a walker, as needed antiemetics affect - Physical Exam General: Alert, In no apparent distress, Oriented x3 HEENT: Atraumatic, Normocephalic Neck: Supple, 2+ carotid pulse no bruit Respiratory: Clear to auscultation bilaterally, Normal air movement Cardiovascular: No edema, Normal pulses, Regular rate/rhythm, Normal S1 S2 Capillary refill: <2 Seconds Gastrointestinal: Normal bowel sounds, Soft and benign, Non-distended Musculoskeletal: No clubbing, No swelling Integumentary: No rashes, No breakdown Neurological: Normal speech, Normal tone, Sensation intact, Abnormal sensation (right sided weakness) Lymphatics: No axilla or inguinal lymphadenopathy Review of Systems Per HPI (Per HPI) Physical Examination - Vital Signs Temperature: 98.5 F Blood Pressure: 171/85 Pulse: 66 Respirations: 16 Pulse Ox (%): 98 Assessment And Plan - Plan Assessment plan Subacute cerebellar ischemic stroke: CT head shows subacute infarct in the right cerebrum. Will continue aspirin and atorvastatin. Will continue neurochecks more frequently (q4h), social work successfully found outpatient physical therapy - [facility], he already has a walker at home Nutrition: Pt is tolerating oral intake. Intractable nausea and vomiting: Improved. Pt has not had vomiting since 09/12/23. Due to CVA. Will give zofran iv TID, baclofen and reglan per neurology recommendation. Take meds with applesauce. Pt will have repeat CT abd and pelvis with contrast to re-evaluated for appendicitis Frequent falls: Likely due to CVA. Will continue fall precaution. Hypertensive urgency: Will resume BP meds. Hypokalemia: K is 3.5 <- 3.3 Will replete with iv KCL and monitor. Tobacco use: Pt was advised to quit smoking. Will give nicotine patch. DM II: Continue accuchek, SSI, advanced from clear liquids Equivical appendicitis per CT: 09/[address] Lindo (done in ED), appendicitis ruled out, per surgery clinically abdomen is soft, nontender No reported fever Code: full DVT ppx: SCD DIspo: Outpatient rehab [facility] - Code Status/Comfort Care Code Status: Full Code Critical Care: No Time Spent Managing PTS Care (In Minutes): 35
[2023-09-14] MEDS: INSULIN GLARGINE 100 UNIT/ML SQ SCH (09:34)
[2023-09-14 11:22] VITALS: O2SAT 99
[2023-09-14] MEDS: POTASSIUM CL SA 10 MEQ TAB PO ONE (13:30)
--- NOTE | 2023-09-14 15:45 | P.DS ---
Admission Date: 09/07/23 Discharge Date: 09/14/23 Disposition: ROUTINE DISCHARGE Reason for Admission: abdominal pain, n/v, r/o appy Brief History of Present Illness: 48 yo with a pmh of uncontrolled HTN, DM, tobacco abuse that recently had a major CVA. He was treated here for that and was just discharged two days ago. "It is noted that the patient's from review of the chart said he had been unable to keep food down with significant nausea and vomiting and blood sugars have been high. August 16 it appears he had a major posterior CVA. His head CT scan showed an acute stroke to a subacute stroke in the cerebellum on the right with the patient subsequently having a CT angiogram of head and neck showing no large vessel occlusion at that time. The study did also suggest the inability to see the posterior-inferior cerebral artery on the right side." Mr. Chavez returned to the ED today for similar symptoms. Dr. Gomez did consult on the past admission and is not at all surprised by the significant GI effects that are common with this type of posterior stroke. He made some suggestions on the recent admission to help control these symptoms, but it will be difficult. On CT evaluation today in the ED, equivical signs of appendicitis were documented. It was asked that the patient be admitted again for IVF and antibiotics for surgical evaluation. Dr. Lindo was consulted from the ED and will see Mr. Chavez. - Physical Exam General: Oriented x3, Other (thin, ill appearing) HEENT: Atraumatic, Normocephalic Neck: 2+ carotid pulse no bruit Respiratory: Normal air movement Cardiovascular: Regular rate/rhythm Capillary refill: <2 Seconds Gastrointestinal: Bowel sounds positive, Musculoskeletal: Other (right sided weakness) Neurological: Normal speech, Other (right sided weakness), Abnormal tone Lymphatics: No axilla or inguinal lymphadenopathy Hospital Course: 48 year-old male patient with a past medical history of CVA presented with intractable nausea vomiting, falls. Was noted to have Subacute cerebellar ischemic stroke. Condition improved with as needed antiemetics. Patient tolerating diet, stable for discharge to home with follow-up appointment with primary care physician. Follow-up with neurology outpatient, continue with outpatient physical therapy. PROBLEM: Subacute cerebellar ischemic stroke Intractable nausea vomiting History of frequent falls Hypertensive urgency Abnormal CT scan, possible appendicitis ruled out by Dr. Belgica Follow-up with neurology outpatient As needed antiemetics for nausea vomiting, advance diet as tolerated Resume p.o. antihypertensives. Continue home medicines as previously prescribed GOAL: Clear understanding of disease process INSTRUCTIONS: Physician Discharge Instructions: -Follow-up with PCP in 1 to 2 weeks -Please call if any questions regarding hospital stay -Please call nursing station at [phone] if any nursing or medication questions -Return to the emergency room if symptoms worsen Diet: ADA, low sodium Activity: Fall precautions Vital Signs/Physical Exam: Temp Pulse Resp BP Pulse Ox 98.9 F 75 16 177/88 H 98 09/14/23 12:00 09/14/23 12:00 09/14/23 12:00 09/14/23 12:00 09/14/23 12:00 Laboratory Data at Discharge: WBC 9.50 thou/uL (4.3-10.9) 09/14/23 07:00 Hgb 11.6 g/dL (13.6-17.9) L 09/14/23 07:00 Hct 33.3 % (39.6-49.0) L 09/14/23 07:00 Plt Count 272 thou/uL (152-406) 09/14/23 07:00 PT 12.1 SECONDS (9.5-12.5) 09/07/23 15:43 INR 1.10 09/07/23 15:43 APTT 28.0 SECONDS (24.3-36.9) 09/07/23 15:43 Sodium 135 mEq/L (136-145) L 09/14/23 07:00 Potassium 3.5 mEq/L (3.5-5.1) 09/14/23 07:00 BUN 8 mg/dL (7-18) 09/14/23 07:00 Creatinine 1.08 mg/dL (0.70-1.30) 09/14/23 07:00 Glucose 283 mg/dL (74-106) H 09/14/23 07:00 Magnesium 1.9 mg/dL (1.6-2.4) 09/10/23 05:33 Total Bilirubin 0.4 mg/dL (0.2-1.0) 09/14/23 07:00 AST 15 U/L (15-37) 09/14/23 07:00 ALT 16 U/L (16-61) 09/14/23 07:00 Alkaline Phosphatase 127 U/L (45-117) H 09/14/23 07:00 Home Medications: Empagliflozin [Jardiance] 25 mg PO DAILY 08/30/23 glyBURIDE [Glyburide] 5 mg PO BID 08/30/23 Amlodipine [Norvasc*] 5 mg PO BID 30 Days #60 tab 09/05/23 Aspirin [Aspirin EC 81 MG] 81 mg PO DAILY 30 Days #30 mg 09/05/23 Atorvastatin Calcium [Lipitor] 80 mg PO BEDTIME 30 Days #30 tab 09/05/23 Baclofen [Lioresal*] 10 mg PO BID 30 Days #60 tab 09/05/23 Blood Pressure Test Kit-Wrist [Blood Pressure Monitor] 1 each BID #1 kit 09/05/23 Blood Sugar Diagnostic [Blood Glucose Test Strip] 1 each ACHS #1 strip 09/05/23 Blood-Glucose Meter [Blood Glucose Meter] 1 each ACHS #1 ea 09/05/23 Blood-Glucose Meter [Blood Glucose Monitoring] 1 each ACHS #1 kit 09/05/23 Clopidogrel Bisulfate [Plavix*] 75 mg PO DAILY 30 Days #30 mg 09/05/23 Insulin Glargine,Hum.rec.anlog [Semglee] 20 unit SQ DAILY 30 Days #100 ml 09/05/23 Insulin Lispro [Humalog*] 6 unit SQ TIDWM 30 Days #100 ml 09/05/23 Nicotine [Nicoderm*] 7 mg TD DAILY 30 Days #30 mg 09/05/23 Ondansetron [Zofran] 8 mg PO TID 30 Days #90 tab 09/05/23 cloNIDine HCL [Clonidine HCl] 0.2 mg PO DAILY PRN 30 Days #30 mg 09/05/23 Physician Discharge Instructions: Outpatient PT arranged: [facility] [address], [place] [address] / Per Ita, insurance is approved; she plans to contact the patient or his to schedule an appointment the week of September 20. Followup: NONE,NONE [Primary Care Provider] - Time spent managing pt's care (in minutes): 55
[2023-09-14 17:52] VITALS: BP 168/80; TEMP 99.2
== END 2023-09-14 17:55 | disposition home or self-care (01) | DRG 65 ==
LOC: ER 15:05 → 4TH 18:05
PROVIDERS: ADMIT Hospitalist; ATTEND Hospitalist
DX: I63.9 Cerebral infarction, unspecified (principal); I69.951 Hemiplegia and hemiparesis following unspecified cerebrovascular disease affecting right dominant side; I16.0 Hypertensive urgency; I10 Essential (primary) hypertension; E87.6 Hypokalemia; E11.9 Type 2 diabetes mellitus without complications; F17.210 Nicotine dependence, cigarettes, uncomplicated; R29.6 Repeated falls; Z71.6 Tobacco abuse counseling; Z79.4 Long term (current) use of insulin; Z91.81 History of falling; Z79.82 Long term (current) use of aspirin; Z79.02 Long term (current) use of antithrombotics/antiplatelets; Z79.899 Other long term (current) drug therapy
CPT/HCPCS: 36415; 70450; 71045; 74176; 74177; 80048; 80053; 81001; 82947; 83036; 83735; 84132; 84484; 85025; 85610; 85730; 93005; 96365; 96366; 96372; 96375; 97161; 99285; C9113; J1815; J2270; J2405; J2543; J2550; J2765; J3480; J7030; J7040; Q9967

== ENCOUNTER 2024-10-12 13:06 | Inpatient (IN) | payer OTHER ==
--- NOTE | 2024-10-12 14:24 | RAD REPORT ---
EXAMINATION: Ct Stroke Brain Wo Cont CLINICAL INDICATION: Male, 49 years old.STROKE ALERT TECHNIQUE: Axial CT images from the skull base to the vertex without intravenous contrast. Coronal an d sagittal reformatted images were created from the data set. One or more of the following dose reduction techniques were used: Automated exposure control, adjustment of the mA and/or kV according to patient size, and/or iterative reconstruction. Unless otherwise specified, incidental findings do not require dedicated imaging follow-up. [id number]. COMPARISON: 08/09/2023 FINDINGS: INTRACRANIAL: No acute intracranial hemorrhage. No hydrocephalus. No mass effect or midline shift. Re mote right cerebellar infarct VASCULATURE: No visualized abnormalities in the arteries or dural venous sinuses. SCALP/SKULL: No calvarial fracture identified. No acute soft tissue abnormality. SINUSES: The visualized paranasal sinuses are mostly clear. No significant mastoid fluid. IMPRESSION: No acute intracranial abnormality. Remote right cerebellar infarct. The findings were communicated to Dr. Hercules on 10/12/2024 2:20 PM.
--- NOTE | 2024-10-12 15:28 | RAD REPORT ---
EXAMINATION: MRI BRAIN WITHOUT CONTRAST CLINICAL INDICATION: VISUAL DISTURBANCES TECHNIQUE: Multiplanar multisequence MR images of the brain were obtained without intravenous contras t. Unless otherwise specified, incidental findings do not require dedicated imaging follow-up. COMPARISON: No prior exam. FINDINGS: INTRACRANIAL: Diffusion-weighted images show no acute or early subacute infarction. There is mild bra in atrophy with mildT2/FLAIR hyperintensities in the periventricular and deep white matter regions, likely representing chronic microvascular ischemic changes. There is no mass effect or midline shift. No abnormal extraaxial fluid collection. Gliosis is seen right cerebellum compatible with remote infarct. VASCULATURE: Normal signal voids in the larger intracranial arteries and dural venous sinuses. SINUSES: The paranasal sinuses and mastoid air cells are predominantly clear. BONE: The marrow signal pattern is within normal limits. IMPRESSION: Negative for acutre CVA or other acute intracranial finding.
[2024-10-12 15:37] LABS: PT Prothrombin Time 10.2 SECONDS (10-13.0); PTT, Activated Partial Thromb 27.3 SECONDS (27.2-37.4); Protime INR 0.89
[2024-10-12 15:41] LABS: Anion Gap 8.5 mEq/L (5.0-15.0); Potassium 3.5 mEq/L (3.5-5.1); Troponin High Sensitivity 40.2 pg/mL (<58.9)
[2024-10-12 15:42] LABS: Absolute Eosinophils 0.2 K/uL (0-0.5); Absolute Lymphocytes (CBC) 2.3 K/uL (0.7-4.9); Absolute Monocytes 0.4 K/uL (0.1-1.3); Basophils % 0.6 % (0-1.3); Eosinophils % 2.9 % (0-4.4); Hematocrit 39.2 % (39.6-49.0); Hemoglobin 13.8 g/dL (13.6-17.9); MCH 28.7 pg (27.0-35.0); MCHC 35.2 g/dL (32.0-36.0); MCV 81.7 fL (80-100); MPV 8.8 fL (7.6-11.3); Neutrophils % 62.5 % (41.7-73.7); Nucleated Red Blood Cells % 0.1 % (0-0); Platelets 240 thou/uL (152-406); RBC Red Blood Cell Count 4.79 M/uL (4.33-5.43); Red Cell Distribution Width 13.2 % (12.1-15.2)
[2024-10-12] MEDS ORDERED: CLOPIDOGREL 75 MG TABLET ONE (16:25)
[2024-10-12] MEDS ORDERED: ASPIRIN 81 MG CHEWABLE TABLET ONE (16:25)
--- NOTE | 2024-10-12 16:35 | EDPHYS ---
Physician Documentation [facility] Name: Almas Chavez Age: 49 yrs Sex: Male : 1975 Arrival Date: 10/12/2024 Time: 13:06 Bed 18 Private MD: ED Physician Mare Hercules HPI: 10/12 16:34 This 49 yrs old Black Male presents to ER via Ambulatory with complaints of Blurred gb1 Vision, Drainage From Eye, Trouble Walking, Heart Flutters. 16:34 49-year-old male with chief complaint of blurry vision and double vision and then woke gb1 up this morning with drip drainage in his eye and difficulty walking. He also states that his heart flutters at times. He denies any chest pain or shortness of breath. 1 year ago he had a cerebellar stroke. He has been prescribed antiplatelet therapy and he states he has been taking it every day. He also has a history of hypertension and right sided weakness with balance issues since last year stroke.. Historical: - Allergies: 13:25 No Known Allergies; iw - PMHx: 13:25 CVA cerebellar; Diabetes - NIDDM; Hypertension; Right sided-weakness and balance issue iw due to CVA; - PSHx: 13:25 None; iw - Immunization history:: Adult Immunizations not up to date. - Infectious Disease History:: Denies. - Social history:: Smoking status: Patient/guardian denies using tobacco, the patient reports quitting approximately 1 years ago. Exam: 16:34 Constitutional: This is a well developed, well nourished patient who is awake, alert, gb1 and in no acute distress. Head/Face: Normocephalic, atraumatic. ENT: Nares patent. No nasal discharge, no septal abnormalities noted. Tympanic membranes are normal and external auditory canals are clear. Oropharynx with no redness, swelling, or masses, exudates, or evidence of obstruction, uvula midline. Mucous membranes moist. Neck: Trachea midline, no thyromegaly or masses palpated, and no cervical lymphadenopathy. Supple, full range of motion without nuchal rigidity, or vertebral point tenderness. No Meningismus. Chest/axilla: Normal chest wall appearance and motion. Nontender with no deformity. No lesions are appreciated. Cardiovascular: Regular rate and rhythm with a normal S1 and S2. No gallops, murmurs, or rubs. Normal PMI, no JVD. No pulse deficits. Respiratory: Lungs have equal breath sounds bilaterally, clear to auscultation and percussion. No rales, rhonchi or wheezes noted. No increased work of breathing, no retractions or nasal flaring. Abdomen/GI: Soft, non-tender, with normal bowel sounds. No distension or tympany. No guarding or rebound. No evidence of tenderness throughout. Back: No spinal tenderness. No costovertebral tenderness. Full range of motion. Skin: Warm, dry with normal turgor. Normal color with no rashes, no lesions, and no evidence of cellulitis. Neuro: Awake and alert, GCS 15, oriented to person, place, time, and situation. Cranial nerves II-XII grossly intact. Motor strength 5/5 in all extremities. Sensory grossly intact. Cerebellar exam abnormal, ataxic gait. Vital Signs: 13:24 BP 169 / 107; Pulse 85; Resp 16; Temp 97.9; Pulse Ox 100% on R/A; iw 16:20 BP 221 / 89; Pulse 54; Resp 15; Temp 97.5; Pulse Ox 100% ; Pain 0/10; jl7 19:00 BP 187 / 99; Pulse 64; Resp 20; Pulse Ox 98% ; me1 20:00 BP 180 / 97; Pulse 56; Resp 16; Pulse Ox 98% ; me1 21:00 BP 184 / 89; Pulse 60; Resp 14; Pulse Ox 100% ; me1 16:20 Pain Scale: Adult 7 NIH Stroke Scale Scores: 16:34 NIHSS Score: 5 gb1 19:00 NIHSS Score: 5 me1 MDM: 13:32 Medical Screening Exam initiated gb1 16:34 Differential diagnosis:. Data reviewed: vital signs, nurses notes, lab test result(s), gb1 radiologic studies, CT scan, MRI. ED course: 49-year-old -Martiniquais male with history of right-sided cerebellar stroke that appears remote on imaging today. No LVO patient is at his baseline as far as his ataxia is concerned but is still experiencing diplopia. I discussed the case with Dr. Gomez who recommends optimization with dual antiplatelet therapy and evaluation and optimization for cerebellar stroke syndrome. Patient is amenable to be admitted to the hospital today under Dr. Jimenes's to his inpatient telemetry service.. 10/12 13:52 Order name: Basic Metabolic Panel; Complete Time: 16:06 gb1 10/12 13:52 Order name: CBC with Diff; Complete Time: 16:06 gb1 10/12 13:52 Order name: High Sensitivity Troponin; Complete Time: 16:06 gb1 10/12 13:52 Order name: Protime (+inr); Complete Time: 16:06 gb1 10/12 13:52 Order name: Ptt, Activated; Complete Time: 16:06 gb1 10/12 19:27 Order name: Basic Metabolic Panel EDMS 10/12 19:27 Order name: Basic Metabolic Panel EDMS 10/12 19:27 Order name: C-Reactive Protein EDMS 10/12 19:27 Order name: C-Reactive Protein EDMS 10/12 19:27 Order name: CBC with Automated Diff EDMS 10/12 19:27 Order name: CBC with Automated Diff EDMS 10/12 19:27 Order name: Comprehensive Metabolic Panel EDMS 10/12 19:27 Order name: Comprehensive Metabolic Panel EDMS 10/12 19:27 Order name: Liver (Hepatic) Function EDMS 10/12 19:27 Order name: Liver (Hepatic) Function EDMS 10/12 19:27 Order name: Magnesium EDMS 10/12 19:27 Order name: Magnesium EDMS 10/12 13:52 Order name: CT Head Angio; Complete Time: 17:03 gb1 10/12 13:52 Order name: CT Neck Angio; Complete Time: 17:10 gb1 10/12 13:52 Order name: CT Stroke Brain w/o Contrast; Complete Time: 14:42 gb1 10/12 14:33 Order name: Brain Wo Cont; Complete Time: 16:06 EDMS 10/12 19:27 Order name: Echo with Doppler EDMS 10/12 19:27 Order name: IRF Screen EDMS 10/12 19:27 Order name: Physical Therapy Consult EDMS 10/12 19:27 Order name: Speech Therapy Consult EDMS 10/12 13:52 Order name: Cardiac monitoring; Complete Time: 16:46 gb1 10/12 13:52 Order name: EKG - Nurse/Tech; Complete Time: 14:44 gb1 10/12 13:52 Order name: IV Saline Lock; Complete Time: 15:19 gb1 10/12 13:52 Order name: Labs collected and sent; Complete Time: 15:20 1 10/12 13:52 Order name: NPO; Complete Time: 16:18 [facility] 10/12 13:52 Order name: O2 Per Protocol; Complete Time: 16:22 gb1 10/12 13:52 Order name: O2 Sat Monitoring; Complete Time: 16:22 [facility] 10/12 13:52 Order name: Stroke Swallow Screen; Complete Time: 16:46 gb1 Administered Medications: 16:24 CANCELLED (Duplicate Order): [id number] mg PO once ll1 16:46 Drug: Clopidogrel PO 75 mg PO once Route: PO; jl7 20:58 Follow up: Response: No adverse reaction me1 16:46 Drug: Aspirin PO 81 mg PO once Route: PO; jl7 20:58 Follow up: Response: No adverse reaction me1 Disposition Summary: 10/12/24 16:34 Hospitalization Ordered Notes: Hospitalization Status: Inpatient Admission gb1 Location: [facility] ([facility]patient) gb1 Condition: Stable gb1 Problem: an acute exacerbation gb1 Symptoms: have worsened gb1 Bed/Room Type: Standard gb1 Provider: Chung Lane(10/12/24 17:25) gb1 Room Assignment: [facility](10/12/24 20:27) Diagnosis - Cerebellar stroke syndrome [facility] Forms: - Medication Reconciliation Form gb1 - SBAR form gb1 - Leadership Thank You Letter gb1 Critical care time excluding procedures: 16:34 Critical care time: Bedside Care: 45 minutes, Consultation: 60 minutes, Family gb1 Intervention: 25 minutes. Total time: 130 minutes NIH Stroke Scale - NIH Stroke Score Date: 10/12/2024 Time: 16:34 Total Score = 5 10. Dysarthria (speech clarity - read or repeat words) - 1(Mild to Moderate) 11. Extinction and Inattention (visual/tactile/auditory/spatial/personal) - 0(No abnormality) 1a. Level of Consciousness (LOC) - 0(Alert) 1b. Level of Consciousness (LOC) (Month \T\ Age) - 0(Both) 1c. LOC Commands (Open \T\ Closes Eyes/Blindstitch Lining Feller) - 0(Both) 2. Best Gaze (Lateral Gaze Paresis) - 1(Partial gaze palsy) 3. Visual Field Loss - 1(Partial hemianopia) 4. Facial Palsy - 0(Normal) 5a. Left Arm: Motor (10-second hold) - 0(No drift) 5b. Right Arm: Motor (10-second hold) - 0(No drift) 6a. Left Leg: Motor (5-second hold - always test supine) - 0(No drift) 6b. Right Leg: Motor (5-second hold - always test supine) - 0(No drift) 7. Limb Ataxia (finger/nose \T\ heel/ruby - test with eyes open) - 1(Present in one limb) 8. Sensory Loss (pinprick arms/legs/face) - 0(Normal) 9. Best Language: Aphasia (description/naming/reading) - 1(Mild to moderate aphasia) Initials: gb1 NIH Stroke Scale - NIH Stroke Score Date: 10/12/2024 Time: 19:00 Total Score = 5 10. Dysarthria (speech clarity - read or repeat words) - 1(Mild to Moderate) 11. Extinction and Inattention (visual/tactile/auditory/spatial/personal) - 0(No abnormality) 1a. Level of Consciousness (LOC) - 0(Alert) 1b. Level of Consciousness (LOC) (Month \T\ Age) - 0(Both) 1c. LOC Commands (Open \T\ Closes Eyes/Blindstitch Lining Feller) - 0(Both) 2. Best Gaze (Lateral Gaze Paresis) - 1(Partial gaze palsy) 3. Visual Field Loss - 1(Partial hemianopia) 4. Facial Palsy - 0(Normal) 5a. Left Arm: Motor (10-second hold) - 0(No drift) 5b. Right Arm: Motor (10-second hold) - 0(No drift) 6a. Left Leg: Motor (5-second hold - always test supine) - 0(No drift) 6b. Right Leg: Motor (5-second hold - always test supine) - 0(No drift) 7. Limb Ataxia (finger/nose \T\ heel/ruby - test with eyes open) - 1(Present in one limb) 8. Sensory Loss (pinprick arms/legs/face) - 0(Normal) 9. Best Language: Aphasia (description/naming/reading) - 1(Mild to moderate aphasia) Initials: me1 Signatures: Dispatcher [employer] EDJu Parekh RN RN kl Williams, Irene, RN RN iw Christiano Thakkar, INSTRUMENT REPAIR TECHNICIAN-C INSTRUMENT REPAIR TECHNICIAN-Cla1 Sam Peña, RN RN jl7 Mare Hercules MD MD gb1 Tiffany Wagner RN 1 Julia Graves RN me1 Corrections: (The following items were deleted from the chart) 13:53 13:53 BASIC METABOLIC PANEL+C.LAB.BRZ ordered. EDMS EDMS 13:53 13:53 CBC+H.LAB.BRZ ordered. EDMS EDMS 13:53 13:53 Troponin High Sensitivity+C.LAB.BRZ ordered. EDMS EDMS 13:53 13:53 PROTIME (+INR)+COAG.LAB.BRZ ordered. EDMS EDMS 13:53 13:53 PTT, ACTIVATED+COAG.LAB.BRZ ordered. EDMS EDMS 13:53 13:53 Head Angio+CT.RAD.BRZ ordered. EDMS EDMS 13:53 13:53 Neck Angio+CT.RAD.BRZ ordered. EDMS EDMS 13:53 13:53 CT-STROKE BRAIN W/O CONTRAST+CT.RAD.BRZ ordered. EDMS EDMS 13:53 13:53 MR STROKE PROTOCOL+MRI.RAD.BRZ ordered. EDMS EDMS 16:24 14:58 Aspirin PO 325 mg PO once ordered. gb1 ll1 17:25 16:34 Trevon Jimenes gb1 gb1 20:27 16:34 gb1 kl
--- NOTE | 2024-10-12 16:35 | ER ---
Nurse's Notes [facility] Name: Almas Chavez Age: 49 yrs Sex: Male : 1975 Arrival Date: 10/12/2024 Time: 13:06 Bed 18 Private MD: Diagnosis: Cerebellar stroke syndrome Presentation: 10/12 13:23 Chief complaint: Patient states: woke up with discharge from his eyes and I have blurry iw vision for a couple days, also has a knot on right rib area for a year , and I have a heart flutter for a a couple days. Coronavirus screen: At this time, the client does not indicate any symptoms associated with coronavirus-19. 13:23 Method Of Arrival: Ambulatory iw 13:24 Ebola Screen: No symptoms or risks identified at this time. Initial Sepsis Screen: Does iw the patient meet any 2 criteria? Does the patient have a suspected source of infection? No. Patient's initial sepsis screen is negative. Risk Assessment: Do you want to hurt yourself or someone else? Patient reports no desire to harm self or others. Onset of symptoms was October 10, 2024. 13:24 Acuity: JOANNE 3 iw Historical: - Allergies: 13:25 No Known Allergies; iw - PMHx: 13:25 CVA cerebellar; Diabetes - NIDDM; Hypertension; Right sided-weakness and balance issue iw due to CVA; - PSHx: 13:25 None; iw - Immunization history:: Adult Immunizations not up to date. - Infectious Disease History:: Denies. - Social history:: Smoking status: Patient/guardian denies using tobacco, the patient reports quitting approximately 1 years ago. Screenin:00 [facility] ED Fall Risk Assessment (Adult) History of falling in the last 3 months, jl7 including since admission No falls in past 3 months (0 pts) Confusion or Disorientation No (0 pts) Intoxicated or Sedated No (0 pts) Impaired Gait No (0 pts) Mobility Assist Device Used No (0 pt) Altered Elimination No (0 pt) Score/Fall Risk Level 0 - 2 = Low Risk Oriented to surroundings, Maintained a safe environment. Abuse screen: Denies threats or abuse. Denies injuries from another. Nutritional screening: No deficits noted. Tuberculosis screening: No symptoms or risk factors identified. 16:12 [place] Swallow Protocol Brief Cognitive Screen What is your name? Normal, Where are you jl7 right now? Normal, What year is it? Normal. Oral Mechanism Examination Facial Symmetry: Normal, Motion: Normal, Lip Closure: Normal, 3 oz Water Swallow Challenge: Pt able to drink all water without stopping, coughing, choking or throat clearing: Yes Result: PASS. Assessment: 16:16 Reassessment: Patient and/or family updated on plan of care and expected duration. Pain ll1 level reassessed. 16:20 General: Appears in no apparent distress. uncomfortable, Behavior is cooperative, jl7 appropriate for age, anxious. Pain: Denies pain. Neuro: Level of Consciousness is awake, alert, obeys commands, Oriented to person, place, time, situation, Moves all extremities. Weakness in right arm(s) leg(s) Speech is normal. Cardiovascular: Patient's skin is warm and dry. Respiratory: Airway is patent Respiratory effort is even, unlabored, Respiratory pattern is regular, symmetrical. EENT: Reports blurred vision. Derm: Skin is pink, warm \T\ dry. 19:00 General: Appears in no apparent distress. Behavior is calm, cooperative, appropriate me1 for age. Pain: Denies pain. Neuro: Level of Consciousness is awake, alert, obeys commands, Oriented to person, place, time, situation, Appropriate for age. Neuro: Reports blurred vision since this morning. Bilateral eyes had discharge when he woke up this morning. Cardiovascular: Patient's skin is warm and dry. Cardiovascular: Reports palpitations, since a couple of days. Respiratory: Airway is patent Respiratory effort is even, unlabored, Respiratory pattern is regular, symmetrical. GI: No signs and/or symptoms were reported involving the gastrointestinal system. : No signs and/or symptoms were reported regarding the genitourinary system. EENT: Reports blurred vision in right eyebrow and left eyebrow since this morning. Discharge to bilateral eyes since waking this morning. Derm: Skin is intact, is healthy with good turgor, Skin is pink, warm \T\ dry. Musculoskeletal: No signs and/or symptoms reported regarding the musculoskeletal system. Vital Signs: 13:24 BP 169 / 107; Pulse 85; Resp 16; Temp 97.9; Pulse Ox 100% on R/A; iw 16:20 BP 221 / 89; Pulse 54; Resp 15; Temp 97.5; Pulse Ox 100% ; Pain 0/10; jl7 19:00 BP 187 / 99; Pulse 64; Resp 20; Pulse Ox 98% ; me1 20:00 BP 180 / 97; Pulse 56; Resp 16; Pulse Ox 98% ; me1 21:00 BP 184 / 89; Pulse 60; Resp 14; Pulse Ox 100% ; me1 16:20 Pain Scale: Adult jl7 NIH Stroke Scale Scores: 16:34 NIHSS Score: 5 gb1 19:00 NIHSS Score: 5 mn1 ED Course: 13:11 Patient arrived in ED. cj3 13:23 Mare Hercules MD is Attending Physician. gb1 13:25 Triage completed. iw 13:31 Arm band placed on. iw 14:11 CT Stroke Brain w/o Contrast In Process Unspecified. EDMS 14:23 CALLED PATIENT FROM LOBBY WITH NO ANSWER. bc6 14:57 CALLED PATIENT FROM LOBBY WITH NO ANSWER. bc6 14:59 Brain Wo Cont In Process Unspecified. EDMS 15:20 Basic Metabolic Panel Sent. bc6 15:20 CBC with Diff Sent. bc6 15:20 High Sensitivity Troponin Sent. bc6 15:20 Protime (+inr) Sent. bc6 15:20 Ptt, Activated Sent. bc6 15:20 Initial lab(s) drawn, by mn, sent to lab. Inserted saline lock: 20 gauge in left bc6 antecubital area, using aseptic technique. Blood collected. Flushed with 10 mL NS. 16:16 Patient placed in an exam room, on a stretcher. ll1 16:17 Sam Peña RN is Primary Nurse. jl7 16:34 Trevon Jimenes is Hospitalizing Provider. gb1 16:42 CT Head Angio In Process Unspecified. EDMS 16:42 CT Neck Angio In Process Unspecified. EDMS 17:[address] MD is Hospitalizing Provider. gb1 19:00 Client placed on continuous cardiac and pulse oximetry monitoring. NIBP monitoring me1 applied. hospital monitor on. Pulse ox on. NIBP on. 19:40 Primary Nurse role handed off by Sam Peña, PRETTY me1 19:40 Julia Graves RN is Primary Nurse. me1 21:02 Patient has correct armband on for positive identification. Bed in low position. Call me1 light in reach. Side rails up X2. Provided Education on: POC. Verbalized understanding.. 21:02 No provider procedures requiring assistance completed. me1 21:09 Patient admitted, IV remains in place. me1 Administered Medications: 16:24 CANCELLED (Duplicate Order): [id number] mg PO once ll1 16:46 Drug: Clopidogrel PO 75 mg PO once Route: PO; jl7 20:58 Follow up: Response: No adverse reaction me1 16:46 Drug: Aspirin PO 81 mg PO once Route: PO; jl7 20:58 Follow up: Response: No adverse reaction me1 Medication: 18:56 VIS not applicable for this client. jl7 Outcome: 16:34 Decision to Hospitalize by Provider. gb1 21:09 Admitted to Tele accompanied by tech, via wheelchair, room 410, with chart, Report me1 called to report tubed up to 4th floor 21:32 Condition: stable me1 21:52 Patient left the ED. me1 NIH Stroke Scale - NIH Stroke Score Date: 10/12/2024 Time: 16:34 Total Score = 5 10. Dysarthria (speech clarity - read or repeat words) - 1(Mild to Moderate) 11. Extinction and Inattention (visual/tactile/auditory/spatial/personal) - 0(No abnormality) 1a. Level of Consciousness (LOC) - 0(Alert) 1b. Level of Consciousness (LOC) (Month \T\ Age) - 0(Both) 1c. LOC Commands (Open \T\ Closes Eyes/Top Precipitator Operator) - 0(Both) 2. Best Gaze (Lateral Gaze Paresis) - 1(Partial gaze palsy) 3. Visual Field Loss - 1(Partial hemianopia) 4. Facial Palsy - 0(Normal) 5a. Left Arm: Motor (10-second hold) - 0(No drift) 5b. Right Arm: Motor (10-second hold) - 0(No drift) 6a. Left Leg: Motor (5-second hold - always test supine) - 0(No drift) 6b. Right Leg: Motor (5-second hold - always test supine) - 0(No drift) 7. Limb Ataxia (finger/nose \T\ heel/ruby - test with eyes open) - 1(Present in one limb) 8. Sensory Loss (pinprick arms/legs/face) - 0(Normal) 9. Best Language: Aphasia (description/naming/reading) - 1(Mild to moderate aphasia) Initials: gb1 NIH Stroke Scale - NIH Stroke Score Date: 10/12/2024 Time: 19:00 Total Score = 5 10. Dysarthria (speech clarity - read or repeat words) - 1(Mild to Moderate) 11. Extinction and Inattention (visual/tactile/auditory/spatial/personal) - 0(No abnormality) 1a. Level of Consciousness (LOC) - 0(Alert) 1b. Level of Consciousness (LOC) (Month \T\ Age) - 0(Both) 1c. LOC Commands (Open \T\ Closes Eyes/Top Precipitator Operator) - 0(Both) 2. Best Gaze (Lateral Gaze Paresis) - 1(Partial gaze palsy) 3. Visual Field Loss - 1(Partial hemianopia) 4. Facial Palsy - 0(Normal) 5a. Left Arm: Motor (10-second hold) - 0(No drift) 5b. Right Arm: Motor (10-second hold) - 0(No drift) 6a. Left Leg: Motor (5-second hold - always test supine) - 0(No drift) 6b. Right Leg: Motor (5-second hold - always test supine) - 0(No drift) 7. Limb Ataxia (finger/nose \T\ heel/ruby - test with eyes open) - 1(Present in one limb) 8. Sensory Loss (pinprick arms/legs/face) - 0(Normal) 9. Best Language: Aphasia (description/naming/reading) - 1(Mild to moderate aphasia) Initials: me1 Signatures: Dispatcher [employer] EDLaure Lloyd RN RN iw Sam Peña RN RN jl7 Tiffany Wagner RN RN ll1 Angela Cook6 Julia Graves RN RN me1 Mare Hercules MD MD gb1 Cristina Sweeney cj3
--- NOTE | 2024-10-12 16:59 | RAD REPORT ---
EXAMINATION: CTA HEAD CLINICAL INDICATION: VISUAL DISTURBANCES TECHNIQUE: Axial CT images were obtained through the head after intravenous contrast utilizing angiog raphic protocol with 3D post-processing (maximum intensity projection images, volume rendered images and/or shaded surface rendered images). One or more of the following dose reduction technique s were used: Automated exposure control, adjustment of the mA and/or kV according to patient size, and/or iterative reconstruction. Unless otherwise specified, incidental findings do not require dedic ated imaging follow-up. COMPARISON: No prior exam. FINDINGS: ICA: The petrous, cavernous, and supraclinoid segments of the bilateral internal carotid arteries are normal. The ophthalmic artery origins are visualized and normal. The posterior communicating arteries are patent. CINTIA: Anterior cerebral arteries are normal bilaterally. The anterior communicating artery is patent. MCA: Middle cerebral arteries are normal bilaterally. AGRONOMY INSTRUCTOR: Posterior cerebral arteries are normal bilaterally. Vertebrobasilar: The vertebral arteries are patent. The basilar artery is normal in appearance. 3D images confirm these findings. IMPRESSION: No significant flow abnormality is identified.
--- NOTE | 2024-10-12 17:08 | RAD REPORT ---
EXAMINATION: CTA NECK CLINICAL INDICATION: HEADACHE TECHNIQUE: Axial CT images were obtained from the aortic arch to the skull base after intravenous con trast utilizing angiographic protocol with 3D post-processing (maximum intensity projection images, volume rendered images and/or shaded surface rendered images). One or more of the following dose redu ction techniques were used: Automated exposure control, adjustment of the mA and/or kV according to patient size, and/or iterative reconstruction. Unless otherwise specified, incidental findings do not require dedicated imaging follow-up. COMPARISON: No prior exam. FINDINGS: AORTA: The imaged aortic arch is normal. CCA: The common carotid arteries are patent and normal in caliber. ICA/ECA: Moderate hard plaquing is seen affecting the right carotid bulb resulting 50-60% stenosis of the proximal right ICA. Mild hard plaque is seen proximal left internal carotid artery resulting in stenosis of less than 50%. VERTEBRAL: The cervical vertebral arteries are patent. Left vertebral artery is dominant. SOFT TISSUE: No significant neck soft tissue abnormalities. The visualized lung apices are clear. 3D images confirm these findings. IMPRESSION: Moderate hard plaquing is seen involving both proximal internal carotid arteries, greater on the righ t. Moderate bilateral carotid stenosis on the right suspected. NASCET criteria used. Mild 0-49% stenosis Moderate 50-69% stenosis Severe 70-99% stenosis
--- NOTE | 2024-10-12 20:06 | P.HP ---
Certification for Inpatient Patient admitted to: Inpatient Patient will require the following post-hospital care: Rehabilitation Practitioner: I am a practitioner with admitting privileges, knowledge of patient current condition, hospital course, and medical plan of care. 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 Patient states his double vision started on Thursday, states at the time he was unable to see from a distance and had to bring things very close in order to be able to see. Patient states he thought his visual problem was going to get better, states today it worsened to the extent that he was not able to see, and also states that he had some conjunctivitis this morning on both eyes. Patient also states he started having some heart palpitation on Thursday with mild associated shortness of breath, with no associated chest pain. Patient states he had the irregular heartbeat today as well. States he does not have any history of of irregular heartbeat in the past. Patient currently denies of any chest pain, denies of any shortness of breath at this time. On admission assessment, patient heart rate was irregular, has some difficulty in tracking the cardinal movement of my fingers, weakness on bilateral upper and lower right extremities which the patient states is residual from his previous stroke a year ago. Patient denies of any abdominal pain, headaches, nausea or vomiting, urinary symptoms, or peripheral edema. Course in ER: Patient had CT brain without contrast, with impression: (1)No acute intracranial abnormality, (2) remote right cerebral infarct. Brain MRI, impression: (1) negative acute CVA or other acute intracranial finding. CTA head, impression: (1) no significant flow abnormality is identified. CTA neck, impression: (1) moderate hard plaguing is seen involving both proximal internal carotid artery, greater on the right, and moderate bilateral carotid stenosis on the right suspected. Allergies No Known Allergies Allergy (Unverified 08/30/23 05:00) Home Medications: glyBURIDE [Glyburide] 5 mg PO BID 08/30/23 Amlodipine [Norvasc*] 5 mg PO BID 30 Days #60 tab 09/05/23 Aspirin [Aspirin EC 81 MG] 81 mg PO DAILY 30 Days #30 mg 09/05/23 Atorvastatin Calcium [Lipitor] 80 mg PO BEDTIME 30 Days #30 tab 09/05/23 Baclofen [Lioresal*] 10 mg PO BID 30 Days #60 tab 09/05/23 Blood Pressure Test Kit-Wrist [Blood Pressure Monitor] 1 each BID #1 kit 09/05/23 Blood Sugar Diagnostic [Blood Glucose Test Strip] 1 each ACHS #1 strip 09/05/23 Blood-Glucose Meter [Blood Glucose Meter] 1 each ACHS #1 ea 09/05/23 Blood-Glucose Meter [Blood Glucose Monitoring] 1 each ACHS #1 kit 09/05/23 Clopidogrel Bisulfate [Plavix*] 75 mg PO DAILY 30 Days #30 mg 09/05/23 Insulin Glargine,Hum.rec.anlog [Semglee] 20 unit SQ DAILY 30 Days #100 ml 09/05/23 Insulin Lispro [Humalog*] 6 unit SQ TIDWM 30 Days #100 ml 09/05/23 Nicotine [Nicoderm*] 7 mg TD DAILY 30 Days #30 mg 09/05/23 Ondansetron [Zofran (Odt)*] 8 mg PO TID 30 Days #90 tab 09/05/23 cloNIDine HCL [Clonidine HCl] 0.2 mg PO DAILY PRN 30 Days #30 mg 09/05/23 Amlodipine [Norvasc*] 5 mg PO DAILY tab 09/14/23 Atorvastatin Calcium [Lipitor] 80 mg PO BEDTIME tab 09/14/23 Baclofen [Lioresal*] 10 mg PO BID tab 09/14/23 Clopidogrel Bisulfate [Plavix*] 75 mg PO DAILY 09/14/23 Nicotine [Nicoderm*] 7 mg TD DAILY 09/14/23 Pantoprazole [Protonix Tab*] 40 mg PO DAILY 30 Days #30 tab 09/14/23 cloNIDine HCL [Catapres*] 0.2 mg PO DAILY tab 09/14/23 clonazePAM [Klonopin*] 0.5 mg PO BID PRN tab 09/14/23 - Past Medical/Surgical History Diabetic: Yes -: Uncontrolled hypertension -: Uncontrolled diabetes -: Hyperlipidemia -: Hypertensive emergency -: Falls -: Acute CVA 08/2023 -: Leg surgery 2014 Psychosocial/ Personal History: Lives at home with his . 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 He had a CVA this year with right sided weakness and GI disturbance - Social History Alcohol use: No CD- Drugs: No Caffeine use: Yes Review of Systems 10-point ROS is otherwise unremarkable General: Weakness, Other (Bilateral right upper and lower extremities.) Eyes: Vision Change, Other (Diplopia) Cardiovascular: Palpitations, Other (Irregular heartbeat) Musculoskeletal: Other (Weakness on right lower and upper extremities) Neurological: Weakness, Other (Diplopia) Physical Examination - Physical Exam General: Alert, Oriented x3, Cooperative HEENT: Atraumatic, Normocephalic, PERRLA, Sclerae nonicteric Neck: Supple, 2+ carotid pulse no bruit, Without JVD or thyroid abnormality Respiratory: Clear to auscultation bilaterally, Normal air movement Cardiovascular: No gallops, No rubs, No murmurs, Irregular heart rate/rhythm Capillary refill: <2 Seconds Gastrointestinal: Normal bowel sounds, Soft and benign, W/out hepatomegaly, No ascites, No tenderness, No masses, No rebound Musculoskeletal: No clubbing, No erythema, Tenderness, Other (Pain in right lower extremity residual from stroke a year ago.) Integumentary: No rashes, No breakdown, No erythema, No warmth, No cyanosis Neurological: Normal speech, Normal tone, Sensation intact, Normal affect, Abnormal gait External genitalia: Non-tender Rectal: Normal - Studies Laboratory Data (last 24 hrs) 10/12/24 10/12/24 10/12/24 15:15 15:15 15:15 WBC 8.00 Hgb 13.8 Hct 39.2 L Plt Count 240 PT 10.2 INR 0.89 APTT 27.3 Sodium 138 Potassium 3.5 BUN 11 Creatinine 1.23 Glucose 272 H Male Exam - Male Exam Scrotum: No lesions Testicular exam: No masses Prostate: Benign Penile exam: No discharge Anus & perineum: Patent Assessment and Plan - Plan Patient is a 49-year-old male who reports to the ER complaining of worsening diplopia, palpitations associated with mild shortness of breath, with no chest pain. Neurologist consult done, texted him and he responded. (1) strokelike symptoms-diplopia. -Consult physical therapy. -Eval for swallowing ordered. -Consult neurologist. -Series of radiographic studies done in ER including CT brain, brain MRI, CTA head, and CTA neck. Impressions as noted above. -Consult Occupational Therapy. -Plavix 75 mg 1 p.o. daily recommended by neurologist. -Aspirin 81 mg p.o. daily recommended by neurologist. -Lovenox 40 mg subcu daily. -Atorvastatin 80 mg p.o. nightly. -Telemetry. (2) New onset Palpitation/irregular heartbeat. -Telemetry. -Echocardiogram with Doppler ordered. -Consult opal miner. -Order serial troponin. (3) chronic type 2 diabetes mellitus. -Held patient metformin at this time due to the fact that he received contrast with his CTA of the head and neck. -Sliding scale moderate. -Continue Jardiance daily. (4)Explained entire treatment plan to the patient, solicit questions answered and voiced understanding. Discharge Plan: Home Plan to discharge in: 72 Hours - Advance Directives Does patient have a Living Will: No Does patient have a Durable POA for Healthcare: No - Code Status/Comfort Care Code Status Assessed: Yes Code Status: Full Code Critical Care: No
[2024-10-12] MEDS: INSULIN REGULAR (HUMAN) 100 UNIT/ML SQ SCH (21:00)
[2024-10-12] MEDS: NA CHLORIDE 0.9% 1,000 ML IV SCH (22:24)
[2024-10-12 22:55] VITALS: BMI 24.3
[2024-10-12] MEDS: ATORVASTATIN 40 MG TAB PO SCH (22:56)
[2024-10-13] MEDS: ACETAMINOPHEN 325 MG TABLET PO PRN (00:41)
[2024-10-13] MEDS: HYDRALAZINE HCL 20 MG/ML VIAL IV PRN (00:41)
[2024-10-13 04:54] LABS: Absolute Eosinophils 0.2 K/uL (0-0.5); Absolute Lymphocytes (CBC) 2.6 K/uL (0.7-4.9); Absolute Monocytes 0.5 K/uL (0.1-1.3); Absolute Neutrophil 3.8 K/uL (1.8-8.0); Basophils % 0.5 % (0-1.3); Eosinophils % 3.4 % (0-4.4); Hematocrit 35.5 % (39.6-49.0); Hemoglobin 12.5 g/dL (13.6-17.9); Lymphocytes % 36.2 % (15.3-44.8); MCH 28.6 pg (27.0-35.0); MCHC 35.3 g/dL (32.0-36.0); MCV 80.9 fL (80-100); MPV 8.6 fL (7.6-11.3); Monocytes % 7.1 % (3.3-12.3); Neutrophils % 52.8 % (41.7-73.7); Nucleated Red Blood Cells % 0.2 % (0-0); Platelets 225 thou/uL (152-406); RBC Red Blood Cell Count 4.38 M/uL (4.33-5.43); Red Cell Distribution Width 12.8 % (12.1-15.2)
[2024-10-13 05:07] LABS: ALT/SGPT 23 U/L (16-61); AST/SGOT 15 U/L (15-37); Albumin 2.8 g/dL (3.4-5.0); Albumin/Globulin Ratio 0.8 (1.1-1.8); Alkaline Phosphatase 109 U/L (45-117); Anion Gap 9.1 mEq/L (5.0-15.0); BUN Blood Urea Nitrogen 8 mg/dL (7-18); Bicarbonate 27 mEq/L (21-32); Bilirubin Direct 0.2 mg/dL (0-0.2); Bilirubin Indirect, Calculated 0.4 mg/dL (0.2-0.8); Bilirubin Total 0.6 mg/dL (0.2-1.0); Globulin 3.3 g/dL (2.3-3.5); Glomerular Filtration Rate 93 ml/min (=/>90); Glucose Level 389 mg/dL (74-106); Magnesium 1.6 mg/dL (1.6-2.4); Potassium 3.1 mEq/L (3.5-5.1); Protein, Total 6.1 g/dL (6.4-8.2); Sodium Level 138 mEq/L (136-145); Troponin High Sensitivity 56.4 pg/mL (<58.9)
[2024-10-13 05:08] LABS: C-Reactive Protein < 2.90 mg/L (<3.00)
[2024-10-13] MEDS: CLOPIDOGREL 75 MG TABLET PO SCH (08:28)
[2024-10-13] MEDS: ASPIRIN EC 81 MG TAB PO SCH (08:28)
[2024-10-13] MEDS: LOSARTAN POTASSIUM 50 MG TABLET PO SCH (08:28)
[2024-10-13] MEDS: ENOXAPARIN 40 MG/0.4 ML SQ SCH (08:28)
[2024-10-13] MEDS ORDERED: CLOPIDOGREL 75 MG TABLET PO SCH (09:00)
[2024-10-13] MEDS: MAGNESIUM SULFATE 1 gm IVPB 1 GM/100 ML BAG IV ONE (10:23)
[2024-10-13] MEDS: POTASSIUM CL SA 10 MEQ TAB PO ONE (10:23)
--- NOTE | 2024-10-13 10:31 | P.PN ---
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 Patient states his double vision started on Thursday, states at the time he was unable to see from a distance and had to bring things very close in order to be able to see. Patient states he thought his visual problem was going to get better, states today it worsened to the extent that he was not able to see, and also states that he had some conjunctivitis this morning on both eyes. Patient also states he started having some heart palpitation on Thursday with mild associated shortness of breath, with no associated chest pain. Patient states he had the irregular heartbeat today as well. States he does not have any history of of irregular heartbeat in the past. Patient currently denies of any chest pain, denies of any shortness of breath at this time. On admission assessment, patient heart rate was irregular, has some difficulty in tracking the cardinal movement of my fingers, weakness on bilateral upper and lower right extremities which the patient states is residual from his previous stroke a year ago. Patient denies of any abdominal pain, headaches, nausea or vomiting, urinary symptoms, or peripheral edema. Course in ER: Patient had CT brain without contrast, with impression: (1)No acute intracranial abnormality, (2) remote right cerebral infarct. Brain MRI, impression: (1) negative acute CVA or other acute intracranial finding. CTA head, impression: (1) no significant flow abnormality is identified. CTA neck, impression: (1) moderate hard plaguing is seen involving both proximal internal carotid artery, greater on the right, and moderate bilateral carotid stenosis on the right suspected.
--- NOTE | 2024-10-13 11:34 | P.CNS ---
Date of Consult: 10/13/24 Chief Complaint: Stroke symptoms- diplopia, irregular heartbeat History of Present Illness: Patient with PMH of HTN, DM, CVA presented with weakness, irregular heart beat, denies chest pain, no SOB, no ARIAS, no syncope. Allergies No Known Allergies Allergy (Unverified 08/30/23 05:00) Home medications list reviewed: Yes Home Medications: glyBURIDE [Glyburide] 5 mg PO BID 08/30/23 Amlodipine [Norvasc*] 5 mg PO BID 30 Days #60 tab 09/05/23 Aspirin [Aspirin EC 81 MG] 81 mg PO DAILY 30 Days #30 mg 09/05/23 Atorvastatin Calcium [Lipitor] 80 mg PO BEDTIME 30 Days #30 tab 09/05/23 Baclofen [Lioresal*] 10 mg PO BID 30 Days #60 tab 09/05/23 Blood Pressure Test Kit-Wrist [Blood Pressure Monitor] 1 each MC BID #1 kit 09/05/23 Blood Sugar Diagnostic [Blood Glucose Test Strip] 1 each ACHS #1 strip 09/05/23 Blood-Glucose Meter [Blood Glucose Meter] 1 each ACHS #1 ea 09/05/23 Blood-Glucose Meter [Blood Glucose Monitoring] 1 each ACHS #1 kit 09/05/23 Clopidogrel Bisulfate [Plavix*] 75 mg PO DAILY 30 Days #30 mg 09/05/23 Insulin Glargine,Hum.rec.anlog [Semglee] 20 unit SQ DAILY 30 Days #100 ml 09/05/23 Insulin Lispro [Humalog*] 6 unit SQ TIDWM 30 Days #100 ml 09/05/23 Nicotine [Nicoderm*] 7 mg TD DAILY 30 Days #30 mg 09/05/23 Ondansetron [Zofran (Odt)*] 8 mg PO TID 30 Days #90 tab 09/05/23 cloNIDine HCL [Clonidine HCl] 0.2 mg PO DAILY PRN 30 Days #30 mg 09/05/23 Amlodipine [Norvasc*] 5 mg PO DAILY tab 09/14/23 Atorvastatin Calcium [Lipitor] 80 mg PO BEDTIME tab 09/14/23 Baclofen [Lioresal*] 10 mg PO BID tab 09/14/23 Clopidogrel Bisulfate [Plavix*] 75 mg PO DAILY 09/14/23 Nicotine [Nicoderm*] 7 mg TD DAILY 09/14/23 Pantoprazole [Protonix Tab*] 40 mg PO DAILY 30 Days #30 tab 09/14/23 cloNIDine HCL [Catapres*] 0.2 mg PO DAILY tab 09/14/23 clonazePAM [Klonopin*] 0.5 mg PO BID PRN tab 09/14/23 - Past Medical/Surgical History Diabetic: Yes -: Uncontrolled hypertension -: Uncontrolled diabetes -: Hyperlipidemia -: Hypertensive emergency -: Falls -: Acute CVA 08/2023 -: Leg surgery 2014 Psychosocial/ Personal History: Lives at home with his . 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 He had a CVA this year with right sided weakness and GI disturbance - Social History Smoking Status: Current every day smoker Alcohol use: No CD- Drugs: No Caffeine use: Yes Place of Residence: Home Review of Systems 10-point ROS is otherwise unremarkable Physical Examination Temp Pulse Resp BP Pulse Ox 97.9 F 76 20 176/95 H 100 10/13/24 08:00 10/13/24 08:00 10/13/24 08:00 10/13/24 08:00 10/13/24 08:00 General: Alert, In no apparent distress HEENT: Atraumatic, PERRLA, Mucous membr. moist/pink, EOMI, Sclerae nonicteric Neck: Supple, 2+ carotid pulse no bruit, No LAD, Without JVD or thyroid abnormality Respiratory: Clear to auscultation bilaterally, Normal air movement Cardiovascular: Regular rate/rhythm, Normal S1 S2 Gastrointestinal: Normal bowel sounds, No tenderness Musculoskeletal: No tenderness Integumentary: No rashes Neurological: Normal gait, Normal speech, Normal tone, Normal affect Lymphatics: No axilla or inguinal lymphadenopathy Laboratory Data (last 24 hrs) 10/12/24 10/12/24 10/12/24 15:15 15:15 15:15 WBC 8.00 Hgb 13.8 Hct 39.2 L Plt Count 240 PT 10.2 INR 0.89 APTT 27.3 Sodium 138 Potassium 3.5 BUN 11 Creatinine 1.23 Glucose 272 H - Problems (1) Irregular heart beat Current Visit: Yes Status: Acute Plan: continue to monitor patient on tele tele monitor shows no arrhythmia recommend starting pateint on Lopressor 25 mg po BID Outpatient follow up with Cardiology for an event monitor. (2) HLD (hyperlipidemia) Current Visit: Yes Status: Acute Plan: Continue Lipitor 80 mg daily Lipid panel in 8 weeks. (3) Uncontrolled hypertension Current Visit: No Status: Acute Plan: add lopressor 25 mg po BID Continue Losartan 50 mg daily Continue to monitor (4) Carotid artery disease Current Visit: Yes Status: Acute Plan: CTA shows mild to moderate disease. continue ASA and Plavix outpatient follow up.
--- NOTE | 2024-10-13 11:55 | EKG ---
Test Date: 2024-10-12 Test Time: 13:29:57 Health Care Recruiter: VASHTI MEASUREMENT RESULTS: Intervals: Rate: 73 NE: 120 QRSD: 88 QT: 386 QTc: 425 Black: P: 72 NE: 120 QRS: 13 T: -83 INTERPRETIVE STATEMENTS: Normal sinus rhythm Voltage criteria for left ventricular hypertrophy T wave abnormality, consider inferolateral ischemia Abnormal ECG Compared to ECG 09/07/2023 14:38:24 Left ventricular hypertrophy now present Sinus bradycardia no longer present T-wave abnormality still present Possible ischemia still present Electronically Signed On 10-13-24 11:53:02 CDT by Jasiel Tena
--- NOTE | 2024-10-13 12:29 | ECHO ---
HEIGHT: 5 ft 10 in WEIGHT: 170 lb 0 oz DATE OF STUDY: 10/13/[address]: Maurilio Melara NP 2-DIMENSIONAL: YES M.MODE: YES DOPPLER: YES COLOR FLOW: YES TDS: PORTABLE: YES DEFINITY: BUBBLE STUDY: DIAGNOSIS: IRREGULAR HEART RHYTHM, SHORTNESS OF BREATH CARDIAC HISTORY: CATHERIZATION: NO SURGERY: NO PROSTHETIC VALVE: NO PACEMAKER: NO MEASUREMENTS (cm) DIASTOLIC (NORMALS) SYSTOLIC (NORMALS) IVSd 1.3 (0.6-1.2) LA Diam 3.2 (1.9-4.0) LVEF 60-65% LVIDd 4.4 (3.5-5.7) LVIDs 3.1 (2.0-3.5) %FS 2.9% LVPWd 1.5 (0.6-1.2) Ao Diam 3.1 (2.0-3.7) 2 DIMENSIONAL ASSESSMENT: RIGHT ATRIUM: NORMAL LEFT ATRIUM: NORMAL RIGHT VENTRICLE: NORMAL LEFT VENTRICLE: MODERATE LEFT VENTRICULAR HYPERTROPHY TRICUSPID VALVE: NORMAL MITRAL VALVE: NORMAL PULMONIC VALVE: NORMAL AORTIC VALVE: NORMAL PERICARDIAL EFFUSION: NONE AORTIC ROOT: NORMAL LEFT VENTRICULAR WALL MOTION: NORMAL DOPPLER/COLOR FLOW: NORMAL COMMENTS: 1. MODERATE LEFT VENTRICULAR HYPERTROPHY 2. NORMAL LEFT VENTRICULAR SYSTOLIC FUNCTION, EJECTION FRACTION 60-65%, NORMAL WALL MOTION 3. NORMAL DIASTOLIC FUNCTION TECHNOLOGIST: MELITON GALINDO
[2024-10-13] MEDS: CARBOXYMETHYLCELLULOSE SODIUM 0.5% 15 ML OPTH PRN (16:44)
[2024-10-14] MEDS: ACETAMIN/CAFFEINE/BUTALB TAB PO ONE ×2 (04:53→12:19)
[2024-10-14] MEDS: AMLODIPINE 5 MG TAB PO ONE (11:03)
[2024-10-14] MEDS: METOPROLOL TAR 25 MG TAB PO ONE (11:03)
--- NOTE | 2024-10-14 15:03 | P.PN ---
Subjective Date of Service: 10/14/24 Chief Complaint: Stroke symptoms- diplopia, irregular heartbeat Subjective: No new changes, No C/O voiced, Tolerating diet, Ambulating, Improving Review of Systems 10-point ROS is otherwise unremarkable Physical Examination - Vital Signs Temperature: 98 F Blood Pressure: 168/90 Pulse: 70 Respirations: 16 Pulse Ox (%): 99 - Physical Exam General: Alert, In no apparent distress HEENT: Atraumatic, PERRLA, EOMI Neck: Supple, JVD not distended Respiratory: Clear to auscultation bilaterally, Normal air movement Cardiovascular: Regular rate/rhythm, Normal S1 S2 Gastrointestinal: Normal bowel sounds, No tenderness Musculoskeletal: No tenderness Integumentary: No rashes Neurological: Normal speech, Normal tone, Normal affect Lymphatics: No axilla or inguinal lymphadenopathy - Studies Medications List Reviewed: Yes Assessment And Plan - Current Problems (Diagnosis) (1) Irregular heart beat Current Visit: Yes Status: Acute Plan: continue to monitor patient on tele tele monitor shows no arrhythmia increase Lopressor to 50 mg po BID Outpatient follow up with Cardiology for an event monitor. Cardiology will sign off, please call with any questions (2) HLD (hyperlipidemia) Current Visit: Yes Status: Acute Plan: Continue Lipitor 80 mg daily Lipid panel in 8 weeks. (3) Uncontrolled hypertension Current Visit: No Status: Acute Plan: increase lopressor to 50 mg po BID Continue Losartan 50 mg daily Continue to monitor (4) Carotid artery disease Current Visit: Yes Status: Acute Plan: CTA shows mild to moderate disease. continue ASA and Plavix outpatient follow up.
[2024-10-14] MEDS: METOPROLOL TAR 25 MG TAB PO SCH (18:11)
[2024-10-14] MEDS: LOSARTAN POTASSIUM 50 MG TABLET PO SCH (20:08)
[2024-10-14] MEDS: ACETAMIN/CAFFEINE/BUTALB TAB PO PRN (21:54)
[2024-10-14] MEDS: GABAPENTIN 100 MG CAP PO SCH (21:54)
[2024-10-15] MEDS: HYDRALAZINE HCL 20 MG/ML VIAL IV PRN (00:06)
[2024-10-15] MEDS: AMLODIPINE 10 MG TAB PO SCH (08:16)
[2024-10-15 09:20] VITALS: O2SAT 98
[2024-10-15 10:50] LABS: Absolute Eosinophils 0.3 K/uL (0-0.5); Absolute Lymphocytes (CBC) 2.6 K/uL (0.7-4.9); Absolute Monocytes 0.5 K/uL (0.1-1.3); Absolute Neutrophil 3.4 K/uL (1.8-8.0); Basophils % 0.5 % (0-1.3); Eosinophils % 4.6 % (0-4.4); Hematocrit 33.5 % (39.6-49.0); Hemoglobin 11.6 g/dL (13.6-17.9); Lymphocytes % 37.8 % (15.3-44.8); MCH 28.7 pg (27.0-35.0); MCHC 34.7 g/dL (32.0-36.0); MCV 82.7 fL (80-100); MPV 8.4 fL (7.6-11.3); Monocytes % 7.2 % (3.3-12.3); Neutrophils % 49.9 % (41.7-73.7); Nucleated Red Blood Cells % 0.1 % (0-0); Platelets 194 thou/uL (152-406); RBC Red Blood Cell Count 4.05 M/uL (4.33-5.43); Red Cell Distribution Width 13.1 % (12.1-15.2)
[2024-10-15 11:11] LABS: Albumin 2.6 g/dL (3.4-5.0); Albumin/Globulin Ratio 0.8 (1.1-1.8); Anion Gap 7.5 mEq/L (5.0-15.0); Bilirubin Total 0.4 mg/dL (0.2-1.0); C-Reactive Protein 3.5 mg/L (<3.00); Globulin 3.2 g/dL (2.3-3.5); Magnesium 1.7 mg/dL (1.6-2.4); Phosphorus 2.7 mg/dL (2.5-4.9); Potassium 3.5 mEq/L (3.5-5.1); Protein, Total 5.8 g/dL (6.4-8.2)
[2024-10-15] MEDS: MAGNESIUM SULFATE 1 gm IVPB 1 GM/100 ML BAG IV ONE (11:40)
[2024-10-15] MEDS: POTASSIUM CL SA 10 MEQ TAB PO ONE (11:40)
[2024-10-15 16:14] VITALS: BP 153/87; TEMP 98.3
== END 2024-10-15 17:16 | disposition home or self-care (01) | DRG 123 ==
LOC: ER 13:06 → ERHOLD 18:41 → 4TH 21:34
PROVIDERS: ADMIT Hospitalist; ATTEND Hospitalist
DX: H53.2 Diplopia (principal); I69.351 Hemiplegia and hemiparesis following cerebral infarction affecting right dominant side; I10 Essential (primary) hypertension; H53.8 Other visual disturbances; E11.9 Type 2 diabetes mellitus without complications; I77.9 Disorder of arteries and arterioles, unspecified; E78.00 Pure hypercholesterolemia, unspecified; H10.9 Unspecified conjunctivitis; R29.705 NIHSS score 5; Z79.4 Long term (current) use of insulin; Z79.82 Long term (current) use of aspirin; Z79.02 Long term (current) use of antithrombotics/antiplatelets; Z79.899 Other long term (current) drug therapy; Z87.891 Personal history of nicotine dependence
CPT/HCPCS: 36415; 70450; 70496; 70498; 70551; 80048; 80053; 82248; 82947; 83735; 84100; 84484; 85025; 85610; 85730; 86140; 92610; 93005; 93306; 94760; 97110; 97116; 97161; 99285; J0360; J1650; J1815; J3475; J7030; Q9967